=== PATIENT | male | born 1940 | race Caucasian/White ===

== ENCOUNTER → 2018-02-24 08:03 | Outpatient (CLI) | payer MEDICARE, OTHER, SELFPAY ==
--- NOTE | 2018-02-24 | DI.RAD.S_ITS ---
PROCEDURE: FL BARIUM SWALLOW W SPEECH INDICATIONS: DYSPHAGIA TECHNIQUE: Examination was conducted in conjunction with speech pathology per standard protocol. In the lateral projection, filming was performed of the patient swallowing. AP projection filming may also be performed with patient swallowing. COMPARISON: [facility], , BARIUM SWALLOW WITH SPEECH, 04/29/2009, 10:28. FINDINGS: Function: The oral preparatory phase appears normal, with proper containment. The subsequent oral propulsive phase, pharyngeal phase, and esophageal phase of swallowing also appear normal with all proffered substances. There was slight laryngotracheal penetration and a single event of slight aspiration into the anterior upper tracheal airway mild to moderate episodic pathologic vallecular pooling was observed. Morphology: No cricopharyngeal bar is identified. No cervical esophageal webs. No Zenker's diverticulum. No strictures. IMPRESSION: Several segments of mild anterior penetration during swallowing was observed with thin liquids, and a single event of scant anterior upper tracheal airway penetration was also observed. Quality of visualization is somewhat limited by patient's continued motion related to Parkinson's disease. Please review the dedicated speech therapy swallowing evaluation report which will be independently generated. Dictated by: Shlomo Nicholas M.D. on 02/24/2018 at 9:10 Approved by: Shlomo Nicholas M.D. on 02/24/2018 at 9:22
== END ==
PROVIDERS: PCP Nurse Practitioner; Visit Provider Nurse Practitioner
DX: R13.10 Dysphagia, unspecified (principal)
CPT/HCPCS: 74230; 92526; 92611

== ENCOUNTER 2018-03-18 08:46 | Emergency (ER) | payer MEDICARE, OTHER, SELFPAY ==
[2018-03-18] VITALS (9 sets, daily range): BP systolic 116–160; BP diastolic 59–99; PULSE 57–70; RESP 17–23; TEMP 36.4; O2SAT 89–98; BMI 23.8
--- NOTE | 2018-03-18 08:49 | ED.SOB ---
HPI - SOB/Dyspnea General Chief Complaint: Shortness of Breath/Dyspnea Stated Complaint: LABORED BREATHING Time Seen by Provider: 03/18/18 08:48 Source: patient Mode of arrival: wheelchair Limitations: no limitations History of Present Illness 77-year-old male with a history of Parkinson's disease here for evaluation of shortness of breath. Patient states that approximately 1 month ago he started noticing dyspnea on exertion. He has seen his food and beverage checker regarding this. He has been treated with a viral illness . He states that last night his symptoms became worse. It was associated with shortness of breath. Describes it as someone sitting on his chest. He did not come into the emergency department. He states that his breathing now is much better than what it was last evening and his chest pain is now gone. He does not know when the chest pain improved. He has been taking his medications. Has noticed that over the past month his breathing issues have become worse and worse. Related Data Home Medications Medication Instructions Recorded Confirmed ASPIRIN (Aspirin Low Dose) 81 mg PO QDAY #0 06/16/09 Carbidopa/Levodopa PO TID #0 06/16/09 (Carbidopa-Levodopa 25-100 Tab) Esomeprazole Magnesium (Nexium) 20 mg PO PM #0 06/16/09 Fluoxetine Hydrochloride (Prozac) 20 mg PO AM #0 06/16/09 HYDROCHLOROTHIAZIDE (Hydrodiuril / 12.5 mg PO QDAY #0 06/16/09 Hctz) INDOMETHACIN (Indocin) 75 mg PO PM #0 06/16/09 LEVOTHYROXINE SODIUM (Synthroid) 150 mcg PO AM #0 06/16/09 LISINOPRIL (Zestril / Prinivil) 40 mg PO AM #0 06/16/09 Loratadine (Claritin) 10 mg PO PRN #0 06/16/09 MULTIVITAMIN/MINERALS (Thera M 1 tab PO QDAY #0 06/16/09 Plus Tablet) Metoprolol Tartrate (Lopressor) 50 mg PO BID #0 06/16/09 NITROGLYCERIN (Nitrostat) 0.4 mg SUBLINGUAL PRN #0 06/16/09 Naproxen Sodium (Naprosyn) 500 mg PO BID #0 06/16/09 Simvastatin (Zocor) 10 mg PO HS #0 06/16/09 Tolterodine Tartrate (Detrol La) 4 mg PO AM #0 06/16/09 VITAMIN C - 1,000 mg PO QDAY #0 06/16/09 (VITAMIN C) [EXELON PATCH] 9.5 mg #0 06/16/09 [IRON] 1 tab PO BID #0 06/16/09 [NIASPAN ER] 500 mg PO TID #0 06/16/09 Allergies Allergy/AdvReac Type Severity Reaction Status Date / Time INGREDIENT: NKDA - NO KNOWN Allergy Unknown Uncoded 06/08/17 11:56 DRUG ALLERGIES Review of Systems Constitutional Denies chills, Denies fever(s), Reports lethargy and Reports malaise Cardiovascular Reports chest pain, Denies edema, Denies leg edema, Reports dyspnea and Reports dyspnea on exertion Respiratory Reports dyspnea, Reports dyspnea on exertion and Denies wheezing Gastrointestinal Gastrointestinal: Denies abdominal pain, Denies nausea and Denies vomiting Genitourinary Denies dysuria Musculoskeletal Denies myalgias and Denies arthralgias Integumentary/Breasts Denies rash Neurologic Comments: No change in his baseline parkinsonian tremors Hematologic/Lymphatic Comments: Not on anticoagulation Allergic/Immunologic Denies wheezing PFSH Medical History Coronary artery disease (Acute) Hyperlipidemia (Acute) Hypertension (Acute) Hypothyroid (Acute) Parkinson's disease (Acute) Surgical History No pertinent past surgical history (Acute) Stented coronary artery (Acute) Social History Smoking Status: Never smoker Exam Initial Vital Signs Initial Vital Signs: Vital Signs Temperature 97.6 F 03/18/18 08:55 Pulse Rate 69 03/18/18 08:55 Respiratory Rate 22 03/18/18 08:55 Blood Pressure 149/95 H 03/18/18 08:55 Pulse Oximetry 94 03/18/18 08:55 Const General: cooperative, comfortable, well developed, well groomed and No acute distress Orientation: alert, awake and oriented x3 HENMT Head: normal to inspection and normocephalic Resp Effort & Inspection: normal respiratory effort, no cough, not labored, no respiratory distress, no retractions and tachypneic Auscultation: clear to auscultation bilaterally and diminished lung sounds Cardio Rate: regular rate Rhythm: regular rhythm Pulses: radial pulses present GI Inspection: non-distended Palpation: soft Skin Lesions: no lesions Rashes: no rashes Neuro General: alert, awake and oriented x3 Extrem General: normal to inspection, capillary refill normal and No edema Psych Appearance: grossly normal and well kempt Course Orders Ordered: ED Orders 03/18/18 08:49 XR chest 1V Stat EKG-12 Lead Stat 03/18/18 09:10 B Type Natriuretic Peptide Stat Complete Blood Count AUTO DIFF Stat Comprehensive Metabolic Panel Stat Lipase Stat Troponin I Stat Discontinued Medications Aspirin (Aspirin Chew) 324 mg PO NOW ONE Stop: 03/18/18 09:07 Last Admin: 03/18/18 09:17 Dose: 324 mg Furosemide (Lasix) 60 mg IV NOW ONE Stop: 03/18/18 10:15 Vital Signs - 8 hr 03/18/18 08:55 03/18/18 09:34 03/18/18 10:08 Temperature 97.6 F Pulse Rate 69 66 62 Respiratory Rate 22 18 19 Blood Pressure 149/95 H Blood Pressure [Right Arm] 158/97 H 160/79 H Pulse Oximetry 94 96 89 L MDM - SOB/Dyspnea Lab Data Attestation: I reviewed the patient's lab results. Result diagrams: 03/18/18 09:10 03/18/18 09:10 Lab Results 03/18/18 03/18/18 Range/Units 09:10 09:10 WBC 9.9 (4.5-11.0) X10^3/uL RBC 4.32 L (4.5-5.9) X10^6/uL Hgb 13.2 L (13.5-17.5) g/dL Hct 39.9 L (41-53) % MCV 92.4 (80-100) fL MCH 30.5 (26-34) PG MCHC 33.0 (30-36) % RDW 15.3 H (11.6-14.8) % Plt Count 335 (150-400) X10^3/uL Neut % (Auto) 72.8 (50-75) % Lymph % (Auto) 16.7 L (25-40) % [place] % (Auto) 8.3 (3-14) % Eos % (Auto) 1.6 L (2-4) % Baso % (Auto) 0.6 (0-2) % Neut # (Auto) 7200 H (7963-2946) /uL Lymph # (Auto) 1700 (2040-4889) /uL [place] # (Auto) 800 (0-900) /uL Eos # (Auto) 200 (0-450) /uL Baso # (Auto) 100 (0-100) /uL Sodium 140 (137-145) mmol/L Potassium 4.0 (3.4-5.1) mmol/L Chloride 105 (98-107) mmol/L Carbon Dioxide 26 (22-32) mmol/L BUN 21 H (9-20) mg/dL Creatinine 0.80 (0.66-1.25) mg/dL Estimated GFR > 60.0 (>60) mL/min BUN/Creatinine Ratio 26.3 H (6-22) Glucose 122 H (80-110) mg/dL Calcium 8.9 (8.4-10.2) mg/dL Total Bilirubin 0.7 (0.2-1.3) mg/dL AST 29 (17-59) IU/L ALT 19 L (21-72) IU/L Alkaline Phosphatase 75 (38-126) U/L Troponin I 0.035 H (0.01-0.034) ng/mL B-Natriuretic Peptide 3830 H (<100) Total Protein 6.4 (6.3-8.2) g/dL Albumin 3.6 (3.5-5.0) g/dL Globulin 2.8 (1.7-4.1) g/dL Albumin/Globulin Ratio 1.3 (1.0-2.8) Lipase 71 (23-300) U/L Imaging Data Chest x-ray: Radiologist's impression: [address] [address] XRay Report Signed Patient: Mason Clay [facility]#: [id number] : 1940Acct:[id number] Age/Sex: 77 / MDate of Service: 03/18/18 Loc: ED Accession Number: [id number] Procedure: XR chest 1V Ordering Provider: Medhat Brock D.O. PROCEDURE: XR CHEST 1V INDICATIONS: SOb TECHNIQUE: One view of the chest was acquired. COMPARISON: [facility], CHEST 1 VIEW, 06/17/2009, 15:11. FINDINGS: Surgical changes and devices: None. Lungs and pleura: No pleural effusions or pneumothorax. There is mild interstitial prominence. Mediastinum: Mediastinal contours appear normal. Heart size is enlarged. Bones and chest wall: No suspicious bony lesions. Overlying soft tissues appear unremarkable. IMPRESSION: Interstitial prominence and cardiomegaly suggesting congestive failure. Dictated by: Shira Jones M.D. on 03/18/2018 at 9:08 Approved by: Shira Jones M.D. on 03/18/2018 at 9:09 ECG Data Attestation: I personally reviewed and interpreted this ECG as follows: Prior ECG tracings: not available for review Interpretation: Sinus rhythm Ventricular rate is 68 LVH Wandering baseline secondary to Parkinson's Nonspecific ST T wave changes MDM Narrative Medical decision making narrative: Patient has remained stable here in the emergency department. Has been chest pain free. Did receive an aspirin. Also received Lasix. Desats to the high 80s with any exertion but is in the 90s with just sitting in bed. Nonspecific changes on his EKG. Troponin only slightly elevated. BNP also elevated. Given his history and physical exam I do suspect that his shortness of breath over the past month secondary to heart failure. I discussed the case with Dr. Gamble at [facility] who accepts the patient in transport. Discussed the transfer with the patient and his . They expressed understanding and agreement. Patient is stable for transport. Discharge Plan Departure Patient Disposition: [facility] Clinical Impression: Congestive heart failure, ACS (acute coronary syndrome), Hypoxia Prescriptions: No Action INDOMETHACIN (Indocin) 75 mg PO PM Qty: 0 RF: 0 MULTIVITAMIN/MINERALS (Thera M Plus Tablet) 1 tab PO QDAY Qty: 0 RF: 0 Tolterodine Tartrate (Detrol La) 4 mg PO AM Qty: 0 RF: 0 VITAMIN C - (VITAMIN C) 1,000 mg PO QDAY Qty: 0 RF: 0 Carbidopa/Levodopa (Carbidopa-Levodopa 25-100 Tab) PO TID Qty: 0 RF: 0 Esomeprazole Magnesium (Nexium) 20 mg PO PM Qty: 0 RF: 0 LEVOTHYROXINE SODIUM (Synthroid) 150 mcg PO AM Qty: 0 RF: 0 [EXELON PATCH] 9.5 mg Qty: 0 RF: 0 Loratadine (Claritin) 10 mg PO PRN Qty: 0 RF: 0 Naproxen Sodium (Naprosyn) 500 mg PO BID Qty: 0 RF: 0 NITROGLYCERIN (Nitrostat) 0.4 mg Sublingual PRN Qty: 0 RF: 0 Simvastatin (Zocor) 10 mg PO HS Qty: 0 RF: 0 [NIASPAN ER] 500 mg PO TID Qty: 0 RF: 0 ASPIRIN (Aspirin Low Dose) 81 mg PO QDAY Qty: 0 RF: 0 Fluoxetine Hydrochloride (Prozac) 20 mg PO AM Qty: 0 RF: 0 HYDROCHLOROTHIAZIDE (Hydrodiuril / Hctz) 12.5 mg PO QDAY Qty: 0 RF: 0 LISINOPRIL (Zestril / Prinivil) 40 mg PO AM Qty: 0 RF: 0 Metoprolol Tartrate (Lopressor) 50 mg PO BID Qty: 0 RF: 0 [IRON] 1 tab PO BID Qty: 0 RF: 0
[2018-03-18] MEDS: ASPIRIN 81 MG TAB 324 MG PO (09:17)
[2018-03-18 09:21] LABS: Add Manual Diff / Slide Review NO; Basophils Absolute Auto 100 /uL (0-100); Basophils Percent Auto 0.6 % (0-2); Eosinophils Absolute Auto 200 /uL (0-450); Eosinophils Percent Auto 1.6 % (2-4); Hematocrit 39.9 % (41-53); Hemoglobin 13.2 g/dL (13.5-17.5); Lymphocytes Absolute Auto 1700 /uL (1100-4500); Lymphocytes Percent Auto 16.7 % (25-40); Mean Corpuscular Hemoglobin 30.5 PG (26-34); Mean Corpuscular Volume 92.4 fL (80-100); Monocytes Absolute Auto 800 /uL (0-900); Monocytes Percent Auto 8.3 % (3-14); Neutrophils Absolute Auto 7200 /uL (1500-7000); Neutrophils Percent Auto 72.8 % (50-75); Platelet Count 335 X10^3/uL (150-400); Red Blood Cell Count 4.32 X10^6/uL (4.5-5.9); Red Cell Distribution Width 15.3 % (11.6-14.8); White Blood Cell Count 9.9 X10^3/uL (4.5-11.0)
[2018-03-18 09:29] LABS: Alanine Aminotransferase 19 IU/L (21-72); Albumin 3.6 g/dL (3.5-5.0); Albumin Globulin Ratio 1.3 (1.0-2.8); Alkaline Phosphatase 75 U/L (38-126); Aspartate Aminotransferase 29 IU/L (17-59); BUN Creatinine Ratio 26.3 (6-22); Bilirubin Total 0.7 mg/dL (0.2-1.3); Blood Urea Nitrogen 21 mg/dL (9-20); Calcium 8.9 mg/dL (8.4-10.2); Carbon Dioxide 26 mmol/L (22-32); Chloride 105 mmol/L (98-107); Estimated Glomerular Filt Rate > 60.0 mL/min (>60); Globulin 2.8 g/dL (1.7-4.1); Glucose 122 mg/dL (80-110); HEMOLYSIS < 15 (0-50); Lipase 71 U/L (23-300); Sodium 140 mmol/L (137-145); Total Protein 6.4 g/dL (6.3-8.2)
[2018-03-18 09:34] LABS: B Type Natriuretic Peptide 3830 (<100)
[2018-03-18 09:41] LABS: Troponin I 0.035 ng/mL (0.01-0.034)
[2018-03-18] MEDS: FUROSEMIDE 100 MG/10 ML VIAL 60 MG IV (10:26)
[2018-03-18 11:38] LABS: Bacteria Urine Occasional (0-1); RBC Urine 0-1/HPF (0-5/HPF); WBC Urine 1-5/HPF (0-5/HPF)
[2018-03-18 11:39] LABS: Culture Indicated Urine Specimen Cultured
[2018-03-18 13:14] LABS: Troponin I 0.036 ng/mL (0.01-0.034)
== END 2018-03-18 15:40 | disposition short-term general hospital (02) ==
PROVIDERS: Emergency Provider Emergency Medicine; PCP Nurse Practitioner
DX: I50.9 Heart failure, unspecified (principal); I24.9 Acute ischemic heart disease, unspecified; R09.02 Hypoxemia
CPT/HCPCS: 36415; 36591; 71045; 80053; 81003; 81015; 83690; 83880; 84484; 85025; 87086; 93005; 96374; 99285; J1940

== ENCOUNTER → 2018-03-22 13:56 | Outpatient (CLI) | payer MEDICARE, OTHER, SELFPAY ==
--- NOTE | 2018-03-22 | DI.ECHO.S_ITS ---
[facility] +---------+ : : [address] : : : : [place], : : : : [place] [address] : : : : Phone: [phone] + [facility]-3597 Echocardiogram Report + + :Name: JULISA GOLDMAN Study Date: 03/22/2018 Height: 69 in : :[facility] Weight: 166 lb: : Gender: Male BSA: 1.9 m2 : :: 1940 Age: 77 yrs : :Reason For Study: Aortic valve stenosis : : Performed By: Dina Aparicio : + + Interpretation Summary The left ventricle is normal in size. The ejection fraction is estimated to be 30-35%. There is moderate to severe global hypokinesis of the left ventricle.Left ventricular function has significantly worsened compared to the previous exam. The right ventricle is normal in size and function. The aortic valve is moderately calcified. The aortic valve is not well visualized. The peak aortic velocity is 3.9 m/sec. The aortic valve mean gradient is 33.7 mmHg. The peak aortic velocity on the previous exam was 4.2 m/sec. The calculated aortic valve area is 0.38 cm2. There is severe aortic stenosis (low gradient due to LV dysfunction). There is mild to moderate aortic regurgitation. Compared to the prior echo study, there has been no change in the severity of aortic regurgitation. . Procedure: A two-dimensional transthoracic echocardiogram with color flow and Doppler was performed. The study quality was technically adequate. Comparison is made with the echocardiogram of 12/08/2016. The heart rate ranged between 44-73 bpm during the study. The patient was in normal sinus rhythm during the exam. Left Ventricle: The LVOT velocity is 0.45 m/s. The LVOT diameter is 2.1 cm. The left ventricle is normal in size. There is no ventricular septal defect visualized. There is no thrombus. The ejection fraction is estimated to be 30- 35%. Left ventricular function has significantly worsened compared to the previous exam. There is moderate to severe global hypokinesis of the left ventricle. MV E/A: 1.6 Med Peak E' Zaheer: 3.3 cm/sec E/E' med: 16.9. Right Ventricle: The right ventricle is normal in size and function. Atria: The left atrium is severely dilated. The left atrium has remained unchanged in size since the prior echo exam. Right atrial size is normal. There has been no significant change since the previous study. Chiari network (normal variant) is noted. There is no Doppler evidence for an interatrial shunt. Mitral Valve: The mitral valve leaflets appear mildly thickened, but open well. There is mild to moderate mitral annular calcification. The mitral valve chordae are thickened and/or calcified. No significant mitral valve stenosis. There is mild mitral regurgitation. There has been no significant change since the previous study. Aortic Valve: The aortic valve is not well visualized. The aortic valve is moderately calcified. The peak aortic velocity is 3.9 m/sec. The peak aortic velocity on the previous exam was 4.2 m/sec. The aortic valve mean gradient is 33.7 mmHg. The calculated aortic valve area is 0.38 cm2. The aortic valve area indexed to the BSA is 0.20 . There is severe aortic stenosis. There is mild to moderate aortic regurgitation. Compared to the prior echo study, there has been no change in the severity of aortic regurgitation. Tricuspid Valve: The tricuspid valve is normal in structure and function. Pulmonary artery pressures cannot be estimated because of the lack of a measurable TR jet velocity. There is mild tricuspid regurgitation. Pulmonic Valve: The pulmonic valve is best visualized from apical view. There is trace pulmonic regurgitation. Great Vessels: The aortic root is normal size. The ascending aorta is at the upper limits of normal in size. The aortic arch could not be visualized. The inferior vena cava was not visualized. Pericardium/ Pleura There is no pericardial effusion. MMode/2D Measurements & Calculations LVIDd: 5.0 cm AoV Openin.1 cm LVIDs: 3.9 cm LVOT diam: 2.1 cm IVSd: 1.0 cm Ao root diam: 3.4 cm LVPWd: 0.78 cm asc Aorta Diam: 3.4 cm LV jolly. diameter/BSA (cm/m^2): 2.6 LV sys. diameter/BSA (cm/m^2): 2.0 FS: 21.9 % EPSS: 0.89 cm LA A2 area: 30.9 cm2 RA long axis: 4.9 cm LA A4 area: 26.8 cm2 RA area: 16.7 cm2 LA length (vol): 5.8 cm RA vol: 48.1 ml LA vol: 121.8 ml RA : 25.2 ml/m2 LA vol index: 63.8 ml/m2 RVD1 (basal): 3.7 cm TAPSE: 1.9 cm Doppler Measurements & Calculations Ao V2 max: 394.6 cm/sec LVOT Max Zaheer: 44.5 cm/sec Ao V2 mean: 265.5 cm/sec LV V1 max P.79 mmHg Ao V2 VTI: 96.2 cm LV V1 VTI: 10.8 cm Ao max P.3 mmHg Ao mean P.7 mmHg BANDAR(I,D): 0.38 cm2 AI P1/2t: 533.2 msec BANDAR(V,D): 0.38 cm2 AI dec slope: 232.4 cm/sec2 BANDAR indexed to BSA (cm^2/m^2): 0.20 sev ratio: 0.11 MV E max zaheer: 55.2 cm/sec MV dec time: 0.38 sec MV A max zaheer: 33.6 cm/sec MV P1/2t: 110.7 msec MV E/A: 1.6 MVA(P1/2t): 2.0 cm2 Med Peak E' Zaheer: 3.3 cm/sec E/E' med: 16.9 Lat Peak E' Zaheer: 7.7 cm/sec E/E' lat: 7.2 E/e' average: 12.0 PA V2 max: 75.1 cm/sec SV(LVOT): 36.2 ml PA V2 mean: 48.8 cm/sec PA mean P.1 mmHg PA Accel Time: 0.07 sec Reading Physician:PM
== END ==
PROVIDERS: PCP Nurse Practitioner; Visit Provider Nurse Practitioner
DX: I08.3 Combined rheumatic disorders of mitral, aortic and tricuspid valves (principal)
CPT/HCPCS: 93306

== ENCOUNTER → 2020-06-30 10:52 | Outpatient (CLI) | payer MEDICARE, OTHER, SELFPAY ==
[2020-06-30 14:51] LABS: COVID19 -Nasal RAPID Negative (Negative)
== END ==
PROVIDERS: PCP Nurse Practitioner; Visit Provider Student in an Organized Health Care Education/Training Program
DX: Z01.812 Encounter for preprocedural laboratory examination (principal); Z20.822 Contact with and (suspected) exposure to COVID-19
CPT/HCPCS: 87635; C9803

== ENCOUNTER → 2020-07-02 10:44 | Outpatient (CLI) | payer MEDICARE, OTHER, SELFPAY ==
--- NOTE | 2020-07-02 | DI.NM.S_ITS ---
PROCEDURE: NM NURIS PERF SPECT R&S PHARM Rest and pharmacological stress myocardial perfusion SPECT with gated imaging and ejection fraction RADIOPHARMACEUTICAL: 24.4 mCi Tc-99m tetrafosmin IV at rest and 26.9 mCi Tc-99m tetrafosmin IV at peak effect of pharmacological stress. [id number] was performed. INDICATIONS: Atherosclerotic heart disease of [place] coronary TECHNIQUE: Radiopharmaceutical was injected at peak stress test, and also at rest. SPECT images were obtained. SPECT myocardial perfusion images were displayed in short axis, horizontal long axis, and vertical long axis views. Gated images were reviewed using [employer] software. COMPARISON: None. CARDIAC STRESS: A pharmacologic stress test was performed under the supervision of an attending staff, using an infusion of lexiscan 0.4mg IV X1. Hemodynamic data: There is normal blood pressure and heart rate response to pharmacologic stress. Symptoms: The patient denied anginal chest pain. Aminophylline: none EKG: Non-diagnostic ECG due to baseline ST changes; frequent PVCs present. FINDINGS: Raw data: There is good myocardial uptake of radiotracer. No significant motion artifacts. [id number] ratio is 0.31 (normal is less than 0.38 for tetrafosmin tracer). Left ventricle function: Gated images demonstrate borderline hypokinesis that is worse in the septum and the inferior wall. No transient ischemic dilation; TID is 1.11 (normal less than 1.3). Left ventricle resting end diastolic volume is 174 mL. Left ventricle stress ejection fraction is 40%; normal range is above 45%. Myocardial perfusion: There is a moderately intense defect in the inferior wall that is severe post stress suggesting prior infarct with significant leonard-infarct ischemia. There is also a moderately intense fixed apical defect suggesting prior infarct with no ischemia. No prone images as the patient unable due to parkinson's disease. IMPRESSION: Abnormal nuclear stress test. 1) There is a moderately intense defect in the inferior wall that is severe post stress suggesting prior infarct with significant leonard-infarct ischemia. There is also a moderately intense fixed apical defect suggesting prior infarct with no ischemia. 2) Enlarged left ventricle with mildly to moderately reduced systolic function (EF post stress 40%). Borderline hypokinesis that is worse in the septum and the inferior wall. 3) ECG non-diagnostic due to baseline ST changes. Frequent PVCs during the study. 4) No angina during the study. 5) Compared to the nuclear stress test 04/29/2009, the perfusion defects noted above are new on this study. Dictated by: Rosa Isela Pineda MD on 07/04/2020 at 9:34 Approved by: Rosa Isela Pineda MD on 07/04/2020 at 9:40
--- NOTE | 2020-07-02 11:47 | P.PCN_ITS ---
Cardiac Stress Test Report Referral & Results Date Patient Seen: 07/02/20 Time Patient Seen: 11:48 Requesting provider: Jen Zaldivar Indication: Atherosclerotic heart disease of [place] coronary Rest ECG: sinus rhythm with lvh with strain pattern, nonspecific ST changes, T wave inversion in II, III, aVF and V6 and bigeminy Procedure Note: After Lexiscan injection had minimal dyspnea and no chest discomfort No significant ST changes on EKG after Lexiscan injection Impression: Normal Lexiscan injection Please note: Actual ECG tracings can be found in the PACS system.
== END ==
PROVIDERS: PCP Nurse Practitioner; Referring Provider Nurse Practitioner; Visit Provider Internal Medicine Cardiovascular Disease
DX: I25.10 Atherosclerotic heart disease of native coronary artery without angina pectoris (principal); I49.3 Ventricular premature depolarization
CPT/HCPCS: 78452; 93017; A9502; J2785

== ENCOUNTER → 2020-07-03 10:25 | Outpatient (CLI) | payer MEDICARE, OTHER, SELFPAY ==
--- NOTE | 2020-07-03 | DI.ECHO.S_ITS ---
[facility]---------+ [facility] +---------+ : : [address] : : : : [id number] : : : : Phone: [phone]+ Echocardiogram Report + + :Name: JULISA GOLDMAN Study Date: 07/03/2020 Height: 69 in : :[facility] : Weight: 157 lb: : Gender: Male BSA: 1.9 m2 : :: 1940 Age: 79 yrs : :Reason For Study: AVR : :Ordering Physician: Kiana : :Nilda Munoz Performed By: Rick Dotson : :Referring: KIANA MUNOZ : + + Interpretation Summary The left ventricle is normal in size. The ejection fraction is estimated to be 25-30%. Left ventricular function has mildly worsened compared to the previous exam. There is a severe hypokinesis to akinesis of the inferior wall, inferior septum as well as posterior lateral wall. Rest of the segments appears to be mildly hypokinetic. In comparison to previous study there is a worsening wall motion abnormalities in inferior wall, inferior septum as well as posterior lateral wall from moderate to severe hypokinesis to almost akinesis. Previous LV ejection fraction was 30 to 35%. The right ventricle is normal in size and function. There is mild to moderate mitral regurgitation. Compared to the prior echo study, there has been an increase in the severity of mitral regurgitation. 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 There is probable normal prosthetic aortic valve function. No aortic regurgitation is present. The IVC is of normal diameter and collapses greater than 50% with a sniff. This suggests a low right atrial pressure of 3 mm Hg. Procedure: A two-dimensional transthoracic echocardiogram with color flow and Doppler was performed. The study quality was technically adequate. Comparison is made with the echocardiogram of 03/22/2018. Rhythm is not clear. Left Ventricle: The left ventricle is normal in size. There is mild concentric left ventricular hypertrophy. There is no thrombus. The ejection fraction is estimated to be 25-30%. Left ventricular function has mildly worsened compared to the previous exam. There is a severe hypokinesis to akinesis of the inferior wall, inferior septum as well as posterior lateral wall. Rest of the segments appears to be mildly hypokinetic. In comparison to previous study there is a worsening wall motion abnormalities in inferior wall, inferior septum as well as posterior lateral wall from moderate to severe hypokinesis to almost akinesis. Previous LV ejection fraction was 30 to 35%. MV E/A: 1.3 Med Peak E' Zaheer: 3.3 cm/sec E/E' med: 23.3. Right Ventricle: The right ventricle is normal in size and function. Atria: The left atrium is severely dilated. The left atrium has remained unchanged in size since the prior echo exam. Right atrial size is normal. There is no Doppler evidence for an interatrial shunt. Mitral Valve: There is mild to moderate mitral annular calcification. The mitral valve chordae are thickened and/or calcified. There is mild to moderate mitral regurgitation. Compared to the prior echo study, there has been an increase in the severity of mitral regurgitation. 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 There is probable normal prosthetic aortic valve function. No aortic regurgitation is present. Tricuspid Valve: Pulmonary artery pressures cannot be estimated because of the lack of a measurable TR jet velocity but the IVC suggests a CVP of around 3 mmHg. There is trace tricuspid regurgitation. Pulmonic Valve: The pulmonic valve is not well visualized. There is no pulmonic valvular regurgitation. Great Vessels: The aortic root is not well visualized. The ascending aorta could not be visualized. The IVC is of normal diameter and collapses greater than 50% with a sniff. This suggests a low right atrial pressure of 3 mm Hg. Pericardium/ Pleura There is no pericardial effusion. There is no pleural effusion. MMode/2D Measurements & Calculations LVIDd: 5.5 cm LA A2 area: 27.9 cm2 LVIDs: 5.0 cm LA A4 area: 21.4 cm2 FS: 8.9 % LA length (vol): 5.4 cm IVSd: 1.3 cm LA vol: 93.2 ml LVPWd: 1.2 cm LA vol index: 50.0 ml/m2 LV jolly. diameter/BSA (cm/m^2): 2.9 LV sys. diameter/BSA (cm/m^2): 2.7 RA area: 16.0 cm2 RVD1 (basal): 3.1 cm TAPSE: 2.3 cm Doppler Measurements & Calculations Ao V2 max: 194.0 cm/sec LVOT Max Zaheer: 76.7 cm/sec Ao V2 mean: 135.4 cm/sec LV V1 max P.4 mmHg Ao max P.1 mmHg LV V1 VTI: 18.7 cm Ao mean P.1 mmHg sev ratio: 0.43 Ao V2 VTI: 43.7 cm MV E max zaheer: 75.9 cm/sec MV A max zaheer: 56.5 cm/sec MV E/A: 1.3 Med Peak E' Zaheer: 3.3 cm/sec E/E' med: 23.3 Lat Peak E' Zaheer: 7.6 cm/sec E/E' lat: 10.0 E/e' average: 16.6 MV dec time: 0.28 sec Reading Physician:10:25 AM
== END ==
PROVIDERS: PCP Nurse Practitioner; Referring Provider Internal Medicine Cardiovascular Disease; Visit Provider Internal Medicine Cardiovascular Disease
DX: I34.0 Nonrheumatic mitral (valve) insufficiency (principal); I49.3 Ventricular premature depolarization; Z95.2 Presence of prosthetic heart valve
CPT/HCPCS: 93306

== ENCOUNTER 2020-08-06 10:03 | Emergency (ER) | payer MEDICARE, OTHER, SELFPAY ==
[2020-08-06] VITALS (16 sets, daily range): BP systolic 113–176; BP diastolic 56–93; PULSE 57–78; RESP 14–19; TEMP 36.1; O2SAT 95–100; BMI 22.8
--- NOTE | 2020-08-06 10:07 | DI.RAD.S_ITS ---
PROCEDURE: XR CHEST 1V INDICATIONS: chest pain TECHNIQUE: One view of the chest was acquired. COMPARISON: [facility], , XR CHEST 1V, 03/18/2018, 8:56. [facility], , CHEST 1 VIEW, 06/17/2009, 15:11. FINDINGS: Surgical changes and devices: None. Lungs and pleura: Lungs are clear. No pleural effusions or pneumothorax. Mediastinum: Mediastinal contours appear normal. Heart size is normal. Bones and chest wall: No suspicious bony lesions. Overlying soft tissues appear unremarkable. IMPRESSION: Normal for age, source of current chest pain symptoms is not seen. Dictated by: Shlomo Nicholas M.D. on 08/06/2020 at 10:35 Approved by: Shlomo Nicholas M.D. on 08/06/2020 at 10:35
--- NOTE | 2020-08-06 10:16 | ED.CHESTPAIN ---
HPI - Chest Pain General Chief Complaint: Chest Pain Stated Complaint: funny symptoms in chest since 2am Time Seen by Provider: 08/06/20 10:06 Source: patient and family Mode of arrival: Ambulatory Limitations: no limitations History of Present Illness HPI narrative: 79-year-old male nonsmoker with history coronary artery disease, hypothyroidism, hypertension, hyperlipidemia presents with his in the chief complaint of funny feeling in his chest since about 2:00 a.m. this morning. He states it started with a spinning or swirling sensation in his chest there was associated with nausea. He denies any obvious provocation, palliation or radiation of the symptoms. He denies associated red flag symptoms such as nausea, vomiting, unexplained diaphoresis, shortness of breath. He states he has never felt any sensation like this in the past. He states over the course of the morning the swelling sensation in his chest has resolved but now he has a residual pressure this it is in the middle of his chest. This also has no provocation, palliation or radiation. This also does not feel like anything he has had in the past. He had a heart catheterization about a week ago at [facility], no stent was placed, his primary terrazzo worker apprentice is Dr. Zaldivar Related Data Home Medications Medication Instructions Recorded Confirmed ASPIRIN (Aspirin Low Dose) 81 mg PO QDAY #0 06/16/09 08/06/20 NITROGLYCERIN (Nitrostat) 0.4 mg SUBLINGUAL PRN #0 06/16/09 08/06/20 Calcium + Vitamin D 08/06/20 acetaminophen [Tylenol Extra 500 mg PO Q6H PRN 08/06/20 08/06/20 Strength] amantadine HCl 100 mg PO 08/06/20 atorvastatin 40 mg PO DAILY 08/06/20 08/06/20 carbidopa-levodopa [Rytary] 48.75 - 195 cap PO ONCE PM 08/06/20 08/06/20 carbidopa-levodopa [Rytary] 61.25 - 245 cap PO QID 08/06/20 08/06/20 carvedilol 3.125 mg PO BID 08/06/20 08/06/20 duloxetine 30 mg PO DAILY 08/06/20 08/06/20 guaifenesin [Mucinex] 1,200 mg PO DAILY 08/06/20 08/06/20 levothyroxine [Synthroid] 125 mcg PO DAILY 08/06/20 08/06/20 lisinopril 10 mg PO DAILY 08/06/20 08/06/20 loratadine 10 mg PO DAILY 08/06/20 08/06/20 melatonin 5 mg PO BEDTIME PRN 08/06/20 08/06/20 rivastigmine 13.3 mg TRANSDERMAL DAILY 08/06/20 08/06/20 solifenacin 10 mg PO BEDTIME 08/06/20 08/06/20 tamsulosin 0.4 mg PO DAILY 08/06/20 08/06/20 trospium 20 mg PO DAILY 08/06/20 08/06/20 Previous Rx's Medication Instructions Recorded isosorbide mononitrate 60 mg PO DAILY #90 tab 08/06/20 spironolactone 12.5 mg PO DAILY #60 tab 08/06/20 Allergies Allergy/AdvReac Type Severity Reaction Status Date / Time INGREDIENT: NKDA - NO KNOWN Allergy Unknown Uncoded 06/08/17 11:56 DRUG ALLERGIES Review of Systems Constitutional Constitutional: Denies chills, Denies fatigue, Denies fever(s), Denies frequent falls, Denies lethargy and Denies weakness Eyes Eyes: Denies change in vision, Denies eye discharge, Denies irritation and Denies loss of vision ENT Ears, Nose, Mouth, and Throat: Denies change in voice, Denies dizziness, Denies neck pain, Denies sore throat and Denies throat swelling Cardiovascular Cardiovascular: Reports chest pain, Reports irregular heart rhythm, Denies lightheadedness, Denies palpitations, Denies dyspnea, Denies dyspnea on exertion and Denies orthopnea Respiratory Respiratory: Denies cough, Denies dyspnea, Denies dyspnea on exertion and Denies wheezing Gastrointestinal Gastrointestinal: Denies abdominal pain, Denies change in bowel habits, Denies diarrhea, Reports nausea and Denies vomiting Musculoskeletal Musculoskeletal: Denies neck pain and Denies numbness Integumentary/Breasts Skin/Breast: Denies pruritus, Denies erythema, Denies rash and Denies wounds Neurologic Neurologic: Denies behavioral changes, Denies confusion, Denies dizziness, Denies frequent falls, Denies loss of vision, Denies numbness and Denies weakness Psychiatric Psychiatric: Denies anxiety, Denies behavioral changes, Denies confusion, Denies depression, Denies homicidal ideation and Denies suicidal ideation Endocrine Endocrine: Denies fatigue, Denies flushing and Denies palpitations Hematologic/Lymphatic Hematologic/Lymphatic: Denies easy bruising Allergic/Immunologic Allergic/Immunologic: Denies urticaria, Denies throat swelling and Denies wheezing Patient History Medical History Coronary artery disease Hyperlipidemia Hypertension Hypothyroid Parkinson's disease Surgical History No pertinent past surgical history Stented coronary artery Social History Smoking Status: Never smoker Smoking Status: Never smoker alcohol intake frequency: 0-2 drinks per day Substance Use Type: does not use Exam Narrative Exam Narrative: GENERAL: [79] year old patient appears stated age. Well-developed patient, in mild distress. HEAD: Atraumatic. Normocephalic. EYES: Pupils equal round and reactive. Extraocular motions intact. No scleral icterus. No injection or drainage. ENT: Nose without bleeding, purulent drainage. Throat without erythema, tonsillar hypertrophy or exudate. Airway patent. NECK: Trachea midline. Non tender CARDIOVASCULAR: Regular rate and rhythm without murmurs, gallops, or rubs. RESPIRATORY: Clear to auscultation. Breath sounds equal bilaterally. No wheezes, rales, or rhonchi. GASTROINTESTINAL: Abdomen soft, non-tender, nondistended. EXTREMITIES: No edema or joint tenderness. BACK: Nontender without deformity or crepitance. No flank tenderness. NEURO: AOx3. SKIN: No rash or erythema of visible areas Initial Vital Signs Initial Vital Signs: Vital Signs Pulse Rate 63 08/06/20 10:20 Respiratory Rate 19 08/06/20 10:20 Pulse Oximetry 98 08/06/20 10:20 Course Orders Ordered: ED Orders 08/06/20 10:06 EKG-12 Lead Stat 08/06/20 10:07 XR chest 1V Stat 08/06/20 10:30 Complete Blood Count AUTO DIFF Stat Comprehensive Metabolic Panel Stat Lipase Stat NT-proBNP (BNP-Adult 18+) Stat Troponin & CK Cardiac Panel Stat 08/06/20 11:17 Partial Thromboplastin Time Stat Prothrombin Time INR Stat Troponin I Routine 08/06/20 13:15 Troponin I Stat Discontinued Medications Aspirin (Aspirin 81 Mg Chew Tab) 324 mg PO NOW ONE Stop: 08/06/20 10:08 Last Admin: 08/06/20 10:18 Dose: 324 mg Documented by: BRIGHT Aspirin (Aspirin 81 Mg Chew Tab) 324 mg PO NOW ONE Stop: 08/06/20 10:17 Last Admin: 08/06/20 10:19 Dose: Not Given Documented by: BRIGHT Sodium Chloride (Normal Saline 0.9%) 1,000 mls @ 150 mls/hr IV CONT WENDY Last Infusion: 08/06/20 15:20 Dose: 0 mls/hr Documented by: Admin: 08/06/20 10:19 Dose: 150 mls/hr Documented by: BRIGHT Nitroglycerin (Nitroglycerin 0.4 Mg Sl Tab) 0.4 mg SL [id number] PRN PRN Reason: Chest Pain Last Admin: 08/06/20 11:00 Dose: 0.4 mg Documented by: BRIGHT Reevaluation(s) Reevaluation #1: BP dropped to 150s before nitro, still having pain Pain to 0/10 after NG x1, BP down to 113 Consultations Consultation #1: discussed with composition mixer cardiology (Miriam). Recent cath shows complex CAD of RCA and ostial circ. Referred to for complex PCI. upon completion of workup, with repeat troponin negative, and pain free. Non ischemic EKGs, recommendation to DC with return precautions. Add Imdur 60, and Spironolactone 12.5 daily. Follow up with Dr. Zaldivar / Cardio as planned Vital Signs Vital signs: Vital Signs - 8 hr 08/06/20 10:20 08/06/20 10:30 08/06/20 10:45 Temperature 96.9 F L Pulse Rate 63 59 L 57 L Respiratory Rate 19 16 14 Blood Pressure 176/77 H Pulse Oximetry 98 97 95 08/06/20 10:59 08/06/20 11:00 08/06/20 11:01 Temperature Pulse Rate 58 L 57 L 58 L Respiratory Rate 17 17 18 Blood Pressure 152/71 H 152/71 H 151/67 H Pulse Oximetry 96 96 96 08/06/20 11:26 08/06/20 11:30 08/06/20 12:00 Temperature Pulse Rate 68 60 68 Respiratory Rate 18 17 15 Blood Pressure 113/56 L 113/59 L Pulse Oximetry 97 97 95 08/06/20 12:12 08/06/20 12:30 08/06/20 12:31 Temperature Pulse Rate 59 L 57 L 58 L Respiratory Rate 15 15 14 Blood Pressure 122/62 130/58 L Pulse Oximetry 100 99 100 08/06/20 13:00 08/06/20 13:30 08/06/20 13:34 Temperature Pulse Rate 57 L 66 75 Respiratory Rate 14 15 17 Blood Pressure 172/73 H Pulse Oximetry 98 99 98 08/06/20 14:00 Temperature Pulse Rate 78 Respiratory Rate 15 Blood Pressure 150/93 H Pulse Oximetry 97 MDM - Chest Pain Lab Data Result diagrams: 08/06/20 10:30 08/06/20 10:30 Labs: Lab Results 08/06/20 08/06/20 08/06/20 Range/Units 10:30 10:30 11:17 WBC 11.1 H (4.5-11.0) X10^3/uL RBC 4.47 L (4.5-5.9) X10^6/uL Hgb 14.5 (13.5-17.5) g/dL Hct 43.5 (41-53) % MCV 97.2 (80-100) fL MCH 32.5 (26-34) PG MCHC 33.4 (30-36) % RDW 14.1 (11.6-14.8) % Plt Count 163 (150-400) X10^3/uL Neut % (Auto) 78.6 H (50-75) % Lymph % (Auto) 13.4 L (25-40) % [place] % (Auto) 6.3 (3-14) % Eos % (Auto) 1.4 L (2-4) % Baso % (Auto) 0.3 (0-2) % Neut # (Auto) 8700 H (2047-9780) /uL Lymph # (Auto) 1500 (1211-4372) /uL [place] # (Auto) 700 (0-900) /uL Eos # (Auto) 200 (0-450) /uL Baso # (Auto) 0 (0-100) /uL PT 13.4 H (10.1-12.7) SECONDS INR 1.2 (0.9-1.3) APTT 32 (26.4-36.2) SECONDS Sodium 137 (137-145) mmol/L Potassium 4.5 (3.4-5.1) mmol/L Chloride 107 (98-107) mmol/L Carbon Dioxide 23 (22-32) mmol/L BUN 22 H (9-20) mg/dL Creatinine 0.66 (0.66-1.25) mg/dL Estimated GFR > 60.0 (>60) mL/min BUN/Creatinine Ratio 33.3 H (6-22) Glucose 122 H (80-110) mg/dL Calcium 9.7 (8.4-10.2) mg/dL Total Bilirubin 1.1 (0.2-1.3) mg/dL AST 25 (17-59) IU/L ALT 6 (<50) IU/L Alkaline Phosphatase 70 (38-126) U/L Total Creatine Kinase 46 L (55-170) U/L CK-MB (CK-2) TNP CK-MB (CK-2) Rel Index TNP Troponin I QNS NT-Pro-B Natriuret Pep 2950 H (<450) pg/mL Total Protein 7.0 (6.3-8.2) g/dL Albumin 4.0 (3.5-5.0) g/dL Globulin 3.0 (1.7-4.1) g/dL Albumin/Globulin Ratio 1.3 (1.0-2.8) Lipase 13 L (23-300) U/L 08/06/20 08/06/20 Range/Units 11:17 13:15 WBC (4.5-11.0) X10^3/uL RBC (4.5-5.9) X10^6/uL Hgb (13.5-17.5) g/dL Hct (41-53) % MCV (80-100) fL MCH (26-34) PG MCHC (30-36) % RDW (11.6-14.8) % Plt Count (150-400) X10^3/uL Neut % (Auto) (50-75) % Lymph % (Auto) (25-40) % [place] % (Auto) (3-14) % Eos % (Auto) (2-4) % Baso % (Auto) (0-2) % Neut # (Auto) (6571-2769) /uL Lymph # (Auto) (6176-1832) /uL [place] # (Auto) (0-900) /uL Eos # (Auto) (0-450) /uL Baso # (Auto) (0-100) /uL PT (10.1-12.7) SECONDS INR (0.9-1.3) APTT (26.4-36.2) SECONDS Sodium (137-145) mmol/L Potassium (3.4-5.1) mmol/L Chloride (98-107) mmol/L Carbon Dioxide (22-32) mmol/L BUN (9-20) mg/dL Creatinine (0.66-1.25) mg/dL Estimated GFR (>60) mL/min BUN/Creatinine Ratio (6-22) Glucose (80-110) mg/dL Calcium (8.4-10.2) mg/dL Total Bilirubin (0.2-1.3) mg/dL AST (17-59) IU/L ALT (<50) IU/L Alkaline Phosphatase (38-126) U/L Total Creatine Kinase (55-170) U/L CK-MB (CK-2) CK-MB (CK-2) Rel Index Troponin I < 0.012 0.012 NT-Pro-B Natriuret Pep (<450) pg/mL Total Protein (6.3-8.2) g/dL Albumin (3.5-5.0) g/dL Globulin (1.7-4.1) g/dL Albumin/Globulin Ratio (1.0-2.8) Lipase (23-300) U/L ECG Data Interpretation: Sinus rhythm with rate 69, frequent PVCs. No obvious ST segmental elevation. QRS 86, ID 156, QTC 404 Discharge Plan Departure Patient Disposition: Home Clinical Impression: Chest pain Qualifiers: Chest pain type: unspecified Qualified Code(s): R07.9 - Chest pain, unspecified Instructions: DI for Chest Pain Activity Restrictions/Additional Instructions: *You have been diagnosed with [chest pain, possibly from the narrowing of your coronary arteries, but no indication of heart attack] *What to do: *Please continue to take your regular medications as directed. [x ] New medication prescriptions sent to your pharmacy: [[facility] ] [ ] New medication written as a paper prescription [ ] No new medications given *Please follow up with your primary care provider in 2-3 days, call for an appointment. Let them know you were seen in the Emergency Department and that we ask that you be seen in follow up. We will electronically transmit a record of today's note if your PCP is in our system *If you do not have a primary care provider please contact [facility] Resource line at [phone]. They will ask some questions about your medical history and help get you set up with a doctor in the community. *Return to Emergency Department if you should have any new, worsening or concerning symptoms, such as [fever greater than 101 F, shaking chills, worsening pain, persistent vomiting or other bothersome symptoms] Prescriptions: New isosorbide mononitrate 60 mg tablet extended release 24 hr 60 mg PO DAILY Qty: 90 RF: 0 spironolactone 25 mg tablet 12.5 mg PO DAILY Qty: 60 RF: 0 No Action NITROGLYCERIN (Nitrostat) 0.4 mg Sublingual PRN Qty: 0 RF: 0 ASPIRIN (Aspirin Low Dose) 81 mg PO QDAY Qty: 0 RF: 0 Rytary 48.75-195 mg capsule, extended release 48.75 - 195 cap PO ONCE PM RF: 0 Rytary 61.25-245 mg capsule, extended release 61.25 - 245 cap PO QID RF: 0 rivastigmine 13.3 mg/24 hour patch 24 hour 13.3 mg transdermal DAILY RF: 0 amantadine HCl 100 mg tablet 100 mg PO RF: 0 atorvastatin 40 mg tablet 40 mg PO DAILY RF: 0 duloxetine 30 mg capsule,delayed release(DR/EC) 30 mg PO DAILY RF: 0 lisinopril 5 mg tablet 10 mg PO DAILY RF: 0 loratadine 10 mg tablet 10 mg PO DAILY RF: 0 melatonin 5 mg Tablet 5 mg PO BEDTIME PRN (Reason: Sleep) RF: 0 carvedilol 3.125 mg tablet 3.125 mg PO BID RF: 0 Mucinex 1,200 mg Tablet Extended Release 12hr 1,200 mg PO DAILY RF: 0 levothyroxine [Synthroid] 125 mcg tablet 125 mcg PO DAILY RF: 0 Calcium + Vitamin D RF: 0 solifenacin 10 mg tablet 10 mg PO BEDTIME RF: 0 tamsulosin 0.4 mg capsule 0.4 mg PO DAILY RF: 0 acetaminophen [Tylenol Extra Strength] 500 mg Capsule 500 mg PO Q6H PRN (Reason: Headache) RF: 0 trospium 20 mg tablet 20 mg PO DAILY RF: 0 Referrals: Christie Arana ARNP [Primary Care Provider] -
[2020-08-06] MEDS: ASPIRIN 81 MG CHEW TAB 324 MG PO (10:18)
[2020-08-06] MEDS: SODIUM CHLORIDE 0.9% 1,000 ML 150 ML IV (10:19)
[2020-08-06 10:40] LABS: Add Manual Diff / Slide Review NO; Basophils Absolute Auto 0 /uL (0-100); Basophils Percent Auto 0.3 % (0-2); Eosinophils Absolute Auto 200 /uL (0-450); Eosinophils Percent Auto 1.4 % (2-4); Hematocrit 43.5 % (41-53); Hemoglobin 14.5 g/dL (13.5-17.5); Lymphocytes Absolute Auto 1500 /uL (1100-4500); Lymphocytes Percent Auto 13.4 % (25-40); Mean Corpuscular HGB Conc 33.4 % (30-36); Mean Corpuscular Hemoglobin 32.5 PG (26-34); Mean Corpuscular Volume 97.2 fL (80-100); Monocytes Absolute Auto 700 /uL (0-900); Monocytes Percent Auto 6.3 % (3-14); Neutrophils Absolute Auto 8700 /uL (1500-7000); Neutrophils Percent Auto 78.6 % (50-75); Platelet Count 163 X10^3/uL (150-400); Red Blood Cell Count 4.47 X10^6/uL (4.5-5.9); Red Cell Distribution Width 14.1 % (11.6-14.8); White Blood Cell Count 11.1 X10^3/uL (4.5-11.0)
[2020-08-06 10:54] LABS: Alanine Aminotransferase 6 IU/L (<50); Albumin Globulin Ratio 1.3 (1.0-2.8); Alkaline Phosphatase 70 U/L (38-126); Aspartate Aminotransferase 25 IU/L (17-59); BUN Creatinine Ratio 33.3 (6-22); Bilirubin Total 1.1 mg/dL (0.2-1.3); Blood Urea Nitrogen 22 mg/dL (9-20); Calcium 9.7 mg/dL (8.4-10.2); Carbon Dioxide 23 mmol/L (22-32); Chloride 107 mmol/L (98-107); Creatine Kinase 46 U/L (55-170); Estimated Glomerular Filt Rate > 60.0 mL/min (>60); Glucose 122 mg/dL (80-110); Lipase 13 U/L (23-300); Potassium 4.5 mmol/L (3.4-5.1); Sodium 137 mmol/L (137-145)
[2020-08-06 10:55] LABS: HEMOLYSIS 107 (0-50)
[2020-08-06 11:00] LABS: Troponin I QNS ng/mL (0.01-0.034)
[2020-08-06] MEDS: NITROGLYCERIN 0.4 MG SL TAB SL (11:00)
[2020-08-06 11:03] LABS: NT-proBNP (BNP-Adult 18+) 2950 pg/mL (<450)
[2020-08-06 11:29] LABS: INR 1.2 (0.9-1.3); Prothrombin Time 13.4 SECONDS (10.1-12.7)
[2020-08-06 11:32] LABS: PTT Partial Thromboplastin Tim 32 SECONDS (26.4-36.2)
[2020-08-06 11:46] LABS: Troponin I < 0.012 ng/mL (0.01-0.034)
[2020-08-06 13:44] LABS: Troponin I 0.012 ng/mL (0.01-0.034)
== END 2020-08-06 15:22 | disposition home or self-care (01) ==
PROVIDERS: Emergency Provider Emergency Medicine; PCP Nurse Practitioner
DX: R07.9 Chest pain, unspecified (principal); R11.0 Nausea
CPT/HCPCS: 36415; 71045; 80053; 82550; 83690; 83880; 84484; 85025; 85610; 85730; 93005; 96360; 96361; 99284

== ENCOUNTER 2020-10-16 13:56 | Emergency (ER) | payer MEDICARE, OTHER, SELFPAY ==
[2020-10-16 14:09] VITALS: BP 99/54; PULSE 64; RESP 16; O2SAT 96
--- NOTE | 2020-10-16 14:33 | ED.FALL ---
HPI - Fall General Chief Complaint: Fall Stated Complaint: fainting spell this morning,not with it Time Seen by Provider: 10/16/20 14:10 Source: patient and family Mode of arrival: Wheelchair History of Present Illness HPI Narrative: Patient is an 80-year-old male. Has a history of Parkinson's disease. Arrived with family after having an episode this morning where is reported that he passed out. He stated that he was at his normal state health. He got out of his car. He uses his walker at baseline. He had taken a couple steps into the garage when family reports that he seemed to not be able to walk far in became somewhat out of it. They did help him to the ground. He did not fall. Did not hit his head. There was no shaking activity consistent with seizures. Patient does not seem to remember the event all that well. There was no loss of bowel or bladder. They tried to get the patient up afterwards. He reported that both of his legs were very weak. He denied any chest pain. No shortness of breath. No lightheadedness. No sinus congestion. No ringing in his ears. No numbness or tingling in arms and his legs. He has been taking all of his medications as directed. Related Data Home Medications Medication Instructions Recorded Confirmed ASPIRIN (Aspirin Low Dose) 81 mg PO QDAY #0 06/16/09 08/06/20 NITROGLYCERIN (Nitrostat) 0.4 mg SUBLINGUAL PRN #0 06/16/09 08/06/20 Calcium + Vitamin D 08/06/20 acetaminophen 500 mg capsule 500 mg PO Q6H PRN 08/06/20 08/06/20 amantadine HCl 100 mg tablet 100 mg PO 08/06/20 atorvastatin 40 mg tablet 40 mg PO DAILY 08/06/20 08/06/20 carbidopa ER 48.75 mg-levodopa 195 48.75 - 195 cap PO ONCE PM 08/06/20 08/06/20 mg capsule,extended release (Rytary) carbidopa ER 61.25 mg-levodopa 245 61.25 - 245 cap PO QID 08/06/20 08/06/20 mg capsule,extended release (Rytary) carvedilol 3.125 mg tablet 3.125 mg PO BID 08/06/20 08/06/20 duloxetine 30 mg capsule,delayed 30 mg PO DAILY 08/06/20 08/06/20 release guaifenesin 1,200 mg tablet, 1,200 mg PO DAILY 08/06/20 08/06/20 extended release 12 hr (Mucinex) levothyroxine 125 mcg tablet 125 mcg PO DAILY 08/06/20 08/06/20 (Synthroid) lisinopril 5 mg tablet 10 mg PO DAILY 08/06/20 08/06/20 loratadine 10 mg tablet 10 mg PO DAILY 08/06/20 08/06/20 melatonin 5 mg tablet 5 mg PO BEDTIME PRN 08/06/20 08/06/20 rivastigmine 13.3 mg/24 hour 13.3 mg TRANSDERMAL DAILY 08/06/20 08/06/20 transdermal patch solifenacin 10 mg tablet 10 mg PO BEDTIME 08/06/20 08/06/20 tamsulosin 0.4 mg capsule 0.4 mg PO DAILY 08/06/20 08/06/20 trospium 20 mg tablet 20 mg PO DAILY 08/06/20 08/06/20 Previous Rx's Medication Instructions Recorded isosorbide mononitrate 60 mg 60 mg PO DAILY #90 tab 08/06/20 tablet,extended release 24 hr spironolactone 25 mg tablet 12.5 mg PO DAILY #60 tab 08/06/20 Allergies Allergy/AdvReac Type Severity Reaction Status Date / Time INGREDIENT: NKDA - NO KNOWN Allergy Unknown Uncoded 06/08/17 11:56 DRUG ALLERGIES Review of Systems Constitutional Constitutional: Reports system reviewed and no additional complaints, except as documented Cardiovascular Cardiovascular: Reports system reviewed and no additional complaints, except as documented Respiratory Respiratory: Reports system reviewed and no additional complaints, except as documented Gastrointestinal Gastrointestinal: Reports system reviewed and no additional complaints, except as documented Musculoskeletal Musculoskeletal: Reports as per HPI Integumentary/Breasts Skin/Breast: Reports system reviewed and no additional complaints, except as documented Neurologic Neurologic: Reports as per HPI Psychiatric Psychiatric: Reports system reviewed and no additional complaints, except as documented Hematologic/Lymphatic On Anticoagulants: No Patient History Medical History Coronary artery disease Hyperlipidemia Hypertension Hypothyroid Parkinson's disease Surgical History No pertinent past surgical history Stented coronary artery Social History Smoking Status: Never smoker Smoking Status: Never smoker alcohol intake frequency: 0-2 drinks per day Substance Use Type: does not use Exam Initial Vital Signs Initial Vital Signs: Vital Signs Pulse Rate 64 10/16/20 14:09 Respiratory Rate 16 10/16/20 14:09 Blood Pressure 99/54 L 10/16/20 14:09 Pulse Oximetry 96 10/16/20 14:09 Const General: cooperative and comfortable HENMT Head: normal to inspection and normocephalic Resp Effort & Inspection: normal respiratory effort Auscultation: clear to auscultation bilaterally Cardio Rate: regular rate Rhythm: regular rhythm GI Inspection: normal to inspection Skin General: no rashes or lesions noted Neuro General: patient alert, patient awake, patient oriented x3 and moves all extremities Cognition: normal cognition Speech: speech normal Gait: other (With walker) Extrem General: normal to inspection and capillary refill normal Psych Appearance: grossly normal and well kempt Scores GCS [place] coma scale eye opening: Spontaneous [place] coma scale verbal response: Orientated [place] coma scale motor response: Obey commands [place] coma scale total score: 15 Course Orders Ordered: ED Orders 10/16/20 14:34 Consult to [facility] - Trading Manager Stat 10/16/20 14:50 Basic Metabolic Panel Stat Complete Blood Count AUTO DIFF Stat Vital Signs Vital signs: Vital Signs - 8 hr 10/16/20 14:09 Pulse Rate 64 Respiratory Rate 16 Blood Pressure 99/54 L Pulse Oximetry 96 MDM - Fall Lab Data Attestation: I reviewed the patient's lab results. Result diagrams: 10/16/20 14:50 10/16/20 14:50 Labs: Lab Results 10/16/20 10/16/20 Range/Units 14:50 14:50 WBC 6.7 (4.5-11.0) X10^3/uL RBC 3.88 L (4.5-5.9) X10^6/uL Hgb 12.5 L (13.5-17.5) g/dL Hct 36.8 L (41-53) % MCV 94.8 (80-100) fL MCH 32.2 (26-34) PG MCHC 33.9 (30-36) % RDW 13.9 (11.6-14.8) % Plt Count 174 (150-400) X10^3/uL Neut % (Auto) 70.7 (50-75) % Lymph % (Auto) 20.3 L (25-40) % [place] % (Auto) 6.2 (3-14) % Eos % (Auto) 2.3 (2-4) % Baso % (Auto) 0.5 (0-2) % Neut # (Auto) 4800 (2214-0203) /uL Lymph # (Auto) 1400 (3080-1586) /uL [place] # (Auto) 400 (0-900) /uL Eos # (Auto) 200 (0-450) /uL Baso # (Auto) 0 (0-100) /uL Sodium 136 L (137-145) mmol/L Potassium 4.2 (3.4-5.1) mmol/L Chloride 107 (98-107) mmol/L Carbon Dioxide 24 (22-32) mmol/L BUN 22 H (9-20) mg/dL Creatinine 0.72 (0.66-1.25) mg/dL Estimated GFR > 60.0 (>60) mL/min BUN/Creatinine Ratio 30.6 H (6-22) Glucose 154 H (80-110) mg/dL Calcium 9.2 (8.4-10.2) mg/dL ECG Data Attestation: I personally reviewed and interpreted this ECG as follows: Interpretation: Sinus rhythm Ventricular rate is 62 Normal axis Normal QRS Normal QTC No ST T wave changes MDM Narrative Medical decision making narrative: Presentation today does seem somewhat consistent as a syncope/presyncope. Low suspicion for seizure. Low suspicion for TIA. Low suspicion for CVA. His electrolytes are unremarkable. Vital signs unremarkable. No indication of dehydration. This also very well could be an issue with his Parkinson's disease and sequela because of this. Had a discussion with the patient and . We will hold on further workup. He was able to ambulate with a walker and states he feels at baseline. He was given strict return precautions and follow-up instructions. He expressed understanding and agreement. Discharge Plan Departure Patient Disposition: Home Clinical Impression: Parkinson's disease Instructions: How to Prevent Falls Activity Restrictions/Additional Instructions: Recommend that you continue to take all of your medications as directed. Also recommend that you look through the resource guide that was given to you by social Work. Contact your primary doctor for a follow-up. Return to the emergency department for any new or worsening symptoms Prescriptions: No Action NITROGLYCERIN (Nitrostat) 0.4 mg Sublingual PRN Qty: 0 RF: 0 ASPIRIN (Aspirin Low Dose) 81 mg PO QDAY Qty: 0 RF: 0 Rytary 48.75-195 mg capsule, extended release 48.75 - 195 cap PO ONCE PM RF: 0 Rytary 61.25-245 mg capsule, extended release 61.25 - 245 cap PO QID RF: 0 rivastigmine 13.3 mg/24 hour patch 24 hour 13.3 mg transdermal DAILY RF: 0 amantadine HCl 100 mg tablet 100 mg PO RF: 0 atorvastatin 40 mg tablet 40 mg PO DAILY RF: 0 duloxetine 30 mg capsule,delayed release(DR/EC) 30 mg PO DAILY RF: 0 lisinopril 5 mg tablet 10 mg PO DAILY RF: 0 loratadine 10 mg tablet 10 mg PO DAILY RF: 0 melatonin 5 mg Tablet 5 mg PO BEDTIME PRN (Reason: Sleep) RF: 0 carvedilol 3.125 mg tablet 3.125 mg PO BID RF: 0 Mucinex 1,200 mg Tablet Extended Release 12hr 1,200 mg PO DAILY RF: 0 levothyroxine [Synthroid] 125 mcg tablet 125 mcg PO DAILY RF: 0 Calcium + Vitamin D RF: 0 solifenacin 10 mg tablet 10 mg PO BEDTIME RF: 0 tamsulosin 0.4 mg capsule 0.4 mg PO DAILY RF: 0 acetaminophen [Tylenol Extra Strength] 500 mg Capsule 500 mg PO Q6H PRN (Reason: Headache) RF: 0 trospium 20 mg tablet 20 mg PO DAILY RF: 0 isosorbide mononitrate 60 mg tablet extended release 24 hr 60 mg PO DAILY Qty: 90 RF: 0 spironolactone 25 mg tablet 12.5 mg PO DAILY Qty: 60 RF: 0 Referrals: Christie Arana ARNP [Primary Care Provider] -
--- NOTE | 2020-10-16 14:52 | CM.SWNOTE ---
SOLUTION MAKE UP OPERATOR Note SOLUTION MAKE UP OPERATOR receives consult and enters room to meet with patient, present is patient's Toni. Patient is 80 y/o male who presents to ED with concern of fainting this morning and fatigue. Patient's endorses that patient typically has more energy and he is not acting like himself. Patient has hx of Parkinson's disease. It is reported that patient and live together in a one story home and patient has generally good mobility at home. Patient and endorse that patient has not fallen or fainted before. It is reported that patient uses a walker at home and a caregiver comes once a week for bath aide assistance. Patient's endorses that she assists patient with getting dressed and undressing each day, and patient is typically independent with walker. SOLUTION MAKE UP OPERATOR discusses HH services and caregivers. It is reported that patient goes to outpatient PT once a week in [place]. It is reported that patient has PCP appt in October or November with ANTONIO Crystal. It is is reported that patient and have a daughter that lives in town that is a good support. Patient and declined HH referral at this time due to current outpatient PT service, SOLUTION MAKE UP OPERATOR discusses that patient's PCP can also submit a HH referral at any time. SOLUTION MAKE UP OPERATOR provides patient and with a senior resource guide and identifies the caregivers in home section. Plan: ED provider to medically assess patient, patient to d/c to home when medically clear. Patient and to look into HH and caregivers in near future. EZIO Matias
[2020-10-16 15:05] LABS: Add Manual Diff / Slide Review NO; Basophils Absolute Auto 0 /uL (0-100); Basophils Percent Auto 0.5 % (0-2); Eosinophils Absolute Auto 200 /uL (0-450); Eosinophils Percent Auto 2.3 % (2-4); Hematocrit 36.8 % (41-53); Hemoglobin 12.5 g/dL (13.5-17.5); Lymphocytes Absolute Auto 1400 /uL (1100-4500); Lymphocytes Percent Auto 20.3 % (25-40); Mean Corpuscular HGB Conc 33.9 % (30-36); Mean Corpuscular Hemoglobin 32.2 PG (26-34); Mean Corpuscular Volume 94.8 fL (80-100); Monocytes Absolute Auto 400 /uL (0-900); Monocytes Percent Auto 6.2 % (3-14); Neutrophils Absolute Auto 4800 /uL (1500-7000); Neutrophils Percent Auto 70.7 % (50-75); Platelet Count 174 X10^3/uL (150-400); Red Blood Cell Count 3.88 X10^6/uL (4.5-5.9); Red Cell Distribution Width 13.9 % (11.6-14.8); White Blood Cell Count 6.7 X10^3/uL (4.5-11.0)
[2020-10-16 15:09] VITALS: PULSE 58; O2SAT 94
[2020-10-16 15:12] LABS: BUN Creatinine Ratio 30.6 (6-22); Blood Urea Nitrogen 22 mg/dL (9-20); Calcium 9.2 mg/dL (8.4-10.2); Carbon Dioxide 24 mmol/L (22-32); Chloride 107 mmol/L (98-107); Estimated Glomerular Filt Rate > 60.0 mL/min (>60); Glucose 154 mg/dL (80-110); HEMOLYSIS 16 (0-50); Potassium 4.2 mmol/L (3.4-5.1); Sodium 136 mmol/L (137-145)
[2020-10-16 15:30] VITALS: BP 110/55; PULSE 57; O2SAT 95
== END 2020-10-16 15:52 | disposition home or self-care (01) ==
PROVIDERS: Emergency Provider Emergency Medicine; PCP Nurse Practitioner
DX: G20 Parkinson's disease (principal); R55 Syncope and collapse
CPT/HCPCS: 36415; 80048; 85025; 93005; 93010; 99283; 99284

== ENCOUNTER 2021-04-26 15:46 | Emergency (ER) | payer MEDICARE, OTHER, SELFPAY ==
[2021-04-26] VITALS (13 sets, daily range): BP systolic 141–220; BP diastolic 65–98; PULSE 48–67; RESP 15–22; TEMP 36.1; O2SAT 96–97; BMI 21.5
--- NOTE | 2021-04-26 15:51 | DI.RAD.S_ITS ---
PROCEDURE: XR CHEST 1V INDICATIONS: chest pain TECHNIQUE: One view of the chest was acquired. COMPARISON: [facility], CR, XR CHEST 1V, 08/06/2020, 10:11. FINDINGS: Surgical changes and devices: Stable appearance of cardiac valvular prosthesis. Lungs and pleura: Lungs are clear. No pleural effusions or pneumothorax. Mediastinum: Mediastinal contours appear normal. Heart size is normal. Bones and chest wall: No suspicious bony lesions. Overlying soft tissues appear unremarkable. IMPRESSION: Stable examination of the chest without acute cardiopulmonary abnormalities. No focal airspace disease. Dictated by: Michele Hemphill M.D. on 04/26/2021 at 15:38 Approved by: Michele Hemphill M.D. on 04/26/2021 at 15:39
--- NOTE | 2021-04-26 15:57 | ED.AMS ---
HPI - Altered Mental Status General Chief Complaint: Syncope Stated Complaint: altered mental status Time Seen by Provider: 04/26/21 15:56 Source: patient and EMS Mode of arrival: EMS Limitations: no limitations History of Present Illness HPI narrative: This is an 80-year-old male brought in for possible altered mental status. He was in the car with his who was driving. She EMS states that is normal for patient to fall asleep in the car but she was talking to him touching him having difficulty waking him and stop the car. To about 5 minutes before he could be awakened. Per report patient then normalized to his normal mental status. He himself has no complaints. He denies headache, chest pain or shortness of breath, no nausea vomiting, no diarrhea constipation. No urinary symptoms. He has Parkinson's and recently had increase in his medication dosage. He has been afebrile with no infectious type symptoms. 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 No known drug allergies. Related Data Home Medications Medication Instructions Recorded Confirmed ASPIRIN (Aspirin Low Dose) 81 mg PO QDAY #0 06/16/09 08/06/20 NITROGLYCERIN (Nitrostat) 0.4 mg SUBLINGUAL PRN #0 06/16/09 08/06/20 Calcium + Vitamin D 08/06/20 acetaminophen 500 mg capsule 500 mg PO Q6H PRN 08/06/20 08/06/20 amantadine HCl 100 mg tablet 100 mg PO 08/06/20 atorvastatin 40 mg tablet 40 mg PO DAILY 08/06/20 08/06/20 carbidopa ER 48.75 mg-levodopa 195 48.75 - 195 cap PO ONCE PM 08/06/20 08/06/20 mg capsule,extended release (Rytary) carbidopa ER 61.25 mg-levodopa 245 61.25 - 245 cap PO QID 08/06/20 08/06/20 mg capsule,extended release (Rytary) carvedilol 3.125 mg tablet 3.125 mg PO BID 08/06/20 08/06/20 duloxetine 30 mg capsule,delayed 30 mg PO DAILY 08/06/20 08/06/20 release guaifenesin 1,200 mg tablet, 1,200 mg PO DAILY 08/06/20 08/06/20 extended release 12 hr (Mucinex) levothyroxine 125 mcg tablet 125 mcg PO DAILY 08/06/20 08/06/20 (Synthroid) lisinopril 5 mg tablet 10 mg PO DAILY 08/06/20 08/06/20 loratadine 10 mg tablet 10 mg PO DAILY 08/06/20 08/06/20 melatonin 5 mg tablet 5 mg PO BEDTIME PRN 08/06/20 08/06/20 rivastigmine 13.3 mg/24 hour 13.3 mg TRANSDERMAL DAILY 08/06/20 08/06/20 transdermal patch solifenacin 10 mg tablet 10 mg PO BEDTIME 08/06/20 08/06/20 tamsulosin 0.4 mg capsule 0.4 mg PO DAILY 08/06/20 08/06/20 trospium 20 mg tablet 20 mg PO DAILY 08/06/20 08/06/20 Previous Rx's Medication Instructions Recorded isosorbide mononitrate 60 mg 60 mg PO DAILY #90 tab 08/06/20 tablet,extended release 24 hr spironolactone 25 mg tablet 12.5 mg PO DAILY #60 tab 08/06/20 Allergies Allergy/AdvReac Type Severity Reaction Status Date / Time INGREDIENT: NKDA - NO KNOWN Allergy Unknown Uncoded 06/08/17 11:56 DRUG ALLERGIES Review of Systems Review of Systems ROS Unobtainable: All systems reviewed & are unremarkable except as noted in HPI and below Patient History Medical History Coronary artery disease Hyperlipidemia Hypertension Hypothyroid Parkinson's disease Surgical History No pertinent past surgical history Stented coronary artery Social History Smoking Status: Never smoker Smoking Status: Never smoker alcohol intake frequency: 0-2 drinks per day Substance Use Type: does not use Exam Narrative Exam Narrative: GENERAL: Alert and oriented x three, elderly male in no acute distress. HEENT: Head normocephalic, atraumatic, EOMI, pupils reactive, face symmetric, moist mucous membranes NECK: Supple, full range of motion CARDIOVASCULAR: Regular rate and rhythm without murmurs, rubs or gallops. RESPIRATORY: Breath sounds equal bilaterally, no wheezes rales or rhonchi. ABDOMEN: Soft, nontender. Normoactive bowel sounds all 4 quadrants. No guarding or rebound, rigidity, no mass : No CVA tenderness EXTREMITIES: Normal range of motion, no clubbing or edema. Neurovascularly intact NEUROLOGICAL: Cranial nerves II through XII grossly intact. Moving all extremities. Patient has persistent tremor which is generalized and rolling movement particularly in his left upper extremity. Patient does have normal movement otherwise in his extremities. 2+ radial pulses. SKIN: Warm, dry, no petechiae, no rashes or lesions. Initial Vital Signs Initial Vital Signs: Vital Signs Temperature 97 F L 04/26/21 15:52 Pulse Rate 52 L 04/26/21 15:52 Respiratory Rate 22 04/26/21 15:52 Blood Pressure 141/65 H 04/26/21 15:52 Pulse Oximetry 96 04/26/21 15:52 Scores GCS [place] coma scale eye opening: Spontaneous [place] coma scale verbal response: Orientated [place] coma scale motor response: Obey commands [place] coma scale total score: 15 Course Orders Ordered: ED Orders 04/26/21 15:30 Complete Blood Count AUTO DIFF Stat Comprehensive Metabolic Panel Stat Lipase Stat Magnesium Stat Troponin & CK Cardiac Panel Stat 04/26/21 15:51 XR chest 1V Stat EKG-12 Lead Stat 04/26/21 17:37 Troponin I Stat Discontinued Medications Carvedilol (Carvedilol 3.125 Mg Tablet) 3.125 mg PO NOW ONE Stop: 04/26/21 17:43 Last Admin: 04/26/21 17:59 Dose: 3.125 mg Documented by: TIERNEY Vital Signs Vital signs: Vital Signs - 8 hr 04/26/21 15:52 04/26/21 16:23 04/26/21 16:30 Temperature 97 F L Pulse Rate 52 L 49 L 48 L Respiratory Rate 22 17 18 Blood Pressure 141/65 H Pulse Oximetry 96 04/26/21 16:31 04/26/21 17:00 04/26/21 17:01 Temperature Pulse Rate 49 L 62 65 Respiratory Rate 15 22 19 Blood Pressure 158/70 H 161/74 H Pulse Oximetry 04/26/21 17:30 04/26/21 17:31 04/26/21 17:59 Temperature Pulse Rate 54 L 52 L 67 Respiratory Rate 15 15 Blood Pressure 220/98 H 220/98 H Pulse Oximetry 04/26/21 18:00 04/26/21 18:01 04/26/21 18:30 Temperature Pulse Rate 64 60 55 L Respiratory Rate 19 21 16 Blood Pressure Pulse Oximetry 04/26/21 18:31 Temperature Pulse Rate 55 L Respiratory Rate 16 Blood Pressure 198/91 H Pulse Oximetry 97 MDM - Altered Mental Status Lab Data Result diagrams: 04/26/21 15:30 04/26/21 15:30 Labs: Lab Results 04/26/21 04/26/21 04/26/21 Range/Units 15:30 15:30 17:37 WBC 5.4 (4.5-11.0) X10^3/uL RBC 3.83 L (4.5-5.9) X10^6/uL Hgb 12.2 L (13.5-17.5) g/dL Hct 36.4 L (41-53) % MCV 95.0 (80-100) fL MCH 31.8 (26-34) PG MCHC 33.5 (30-36) % RDW 13.3 (11.6-14.8) % Plt Count 162 (150-400) X10^3/uL Neut % (Auto) 57.9 (50-75) % Lymph % (Auto) 27.7 (25-40) % [place] % (Auto) 10.3 (3-14) % Eos % (Auto) 3.8 (2-4) % Baso % (Auto) 0.3 (0-2) % Neut # (Auto) 3100 (1187-7709) /uL Lymph # (Auto) 1500 (4742-7956) /uL [place] # (Auto) 600 (0-900) /uL Eos # (Auto) 200 (0-450) /uL Baso # (Auto) 0 (0-100) /uL Sodium 140 (137-145) mmol/L Potassium 3.9 (3.4-5.1) mmol/L Chloride 108 H (98-107) mmol/L Carbon Dioxide 28 (22-32) mmol/L BUN 16 (9-20) mg/dL Creatinine 0.71 (0.66-1.25) mg/dL Estimated GFR > 60.0 (>60) mL/min BUN/Creatinine Ratio 22.5 H (6-22) Glucose 104 (80-110) mg/dL Calcium 9.0 (8.4-10.2) mg/dL Magnesium 1.9 (1.6-2.3) mg/dL Total Bilirubin 0.7 (0.2-1.3) mg/dL AST 27 (17-59) IU/L ALT 12 (<50) IU/L Alkaline Phosphatase 50 (38-126) U/L Total Creatine Kinase 32 L (55-170) U/L CK-MB (CK-2) TNP CK-MB (CK-2) Rel Index TNP Troponin I 0.070 H 0.065 H (0.01-0.034) ng/mL Total Protein 6.0 L (6.3-8.2) g/dL Albumin 3.6 (3.5-5.0) g/dL Globulin 2.4 (1.7-4.1) g/dL Albumin/Globulin Ratio 1.5 (1.0-2.8) Lipase 32 (23-300) U/L Imaging Data Chest x-ray: Radiologist's Impression: [address] [address] XRay Report Signed Patient: Mason Clay MR#: [id number] : 1940 Acct:[id number] Age/Sex: 80 / M Date of Service: 04/26/21 Loc: ED Accession Number: [id number] ?? Procedure: XR chest 1V Ordering Provider: Yisel James D.O. PROCEDURE:? XR CHEST 1V ? INDICATIONS:? chest pain ? TECHNIQUE:? One view of the chest was acquired.? ? COMPARISON:? [facility], , XR CHEST 1V, 08/06/2020, 10:11. ? FINDINGS:? ? Surgical changes and devices:? Stable appearance of cardiac valvular prosthesis. ? Lungs and pleura:? Lungs are clear.? No pleural effusions or pneumothorax.? ? Mediastinum:? Mediastinal contours appear normal.? Heart size is normal.? ? Bones and chest wall:? No suspicious bony lesions.? Overlying soft tissues appear unremarkable.? ? IMPRESSION:? Stable examination of the chest without acute cardiopulmonary abnormalities. ?No focal airspace disease. ? ? Dictated by: Michele Hemphill M.D. on 04/26/2021 at 15:38 ? ? Approved by: Michele Hemphill M.D. on 04/26/2021 at 15:39?? ECG Data Attestation: I personally reviewed and interpreted this ECG as follows: Prior ECG tracings: available for review Interpretation: Sinus bradycardia rate of 48 [place] 160 QRS of 92 and QTC of 434. T-wave inversion in V4 5 and 6. Patient has prior from 10/16/2020 where lateral lead inversion is less obvious but is present on 08/06/2020 as well as 03/18/2018 EKGs. Sinus rhythm, rate of 63 [place] 170 QRS of 94 and QTC 476. [place] inversion V5 V6. No elevation. No other acute changes appreciated. Patient's EKG appears similar to priors. MDM Narrative Medical decision making narrative: This is an 80-year-old male who was in the vehicle with his full she was driving she states he was very difficult to awake after he had fallen asleep in the car which is typical. She states she poked and yelled at him he even grabbed his face. He did not respond for about 5 minutes. She states he then awoke and resume his normal mentation. He denies any issues or concerns, no pain, no shortness of breath, he became hypertensive in the department but had missed his evening dose of antihypertensive. They did have his home Parkinson's medications which he took. Had a Parkinsons medications increased today called Kynmob. Adverse events include sudden sleep episodes, orthostatic hypotension and syncope as well as QT prolongation. Discussed does might have complicated today situation but if patient has any new symptoms such as chest pain, recurrent episodes had shortness of breath he should have a more thorough cardiac evaluation. Patient has indeterminate troponin which is trending down words. Does not appear to have dynamic ST changes without chest pain or shortness of breath. Discharge Plan Departure Patient Disposition: Home Clinical Impression: Difficulty waking Activity Restrictions/Additional Instructions: Follow up with your physician for recheck. Talk with your physician about if you should have additional cardiac testing for a possible syncopal episode. Your medication Kynmobi does have known adverse reactions that might be related. I would talk with your physician to see if they would like to continue your medication at current dosage or adjust it. Please return for recurrent episodes, chest pain, shortness of breath, lightheadedness or passing out, persistent vomiting or other new or concerning symptoms. Prescriptions: No Action NITROGLYCERIN (Nitrostat) 0.4 mg Sublingual PRN Qty: 0 0RF ASPIRIN (Aspirin Low Dose) 81 mg PO QDAY Qty: 0 0RF Rytary 48.75-195 mg capsule, extended release 48.75 - 195 cap PO ONCE PM 0RF Rytary 61.25-245 mg capsule, extended release 61.25 - 245 cap PO QID 0RF rivastigmine 13.3 mg/24 hour patch 24 hour 13.3 mg transdermal DAILY 0RF amantadine HCl 100 mg tablet 100 mg PO 0RF Rx Instructions: 1/2 twice daily atorvastatin 40 mg tablet 40 mg PO DAILY 0RF duloxetine 30 mg capsule,delayed release(DR/EC) 30 mg PO DAILY 0RF lisinopril 5 mg tablet 10 mg PO DAILY 0RF loratadine 10 mg tablet 10 mg PO DAILY 0RF melatonin 5 mg Tablet 5 mg PO BEDTIME PRN (Reason: Sleep) 0RF carvedilol 3.125 mg tablet 3.125 mg PO BID 0RF Mucinex 1,200 mg Tablet Extended Release 12hr 1,200 mg PO DAILY 0RF levothyroxine [Synthroid] 125 mcg tablet 125 mcg PO DAILY 0RF Calcium + Vitamin D 0RF solifenacin 10 mg tablet 10 mg PO BEDTIME 0RF tamsulosin 0.4 mg capsule 0.4 mg PO DAILY 0RF Label Comments: takes 2 daily acetaminophen [Tylenol Extra Strength] 500 mg Capsule 500 mg PO Q6H PRN (Reason: Headache) 0RF trospium 20 mg tablet 20 mg PO DAILY 0RF isosorbide mononitrate 60 mg tablet extended release 24 hr 60 mg PO DAILY Qty: 90 0RF spironolactone 25 mg tablet 12.5 mg PO DAILY Qty: 60 0RF Referrals: Wes Johnson MD [Primary Care Provider] -
[2021-04-26 16:01] LABS: Add Manual Diff / Slide Review NO; Basophils Absolute Auto 0 /uL (0-100); Basophils Percent Auto 0.3 % (0-2); Eosinophils Absolute Auto 200 /uL (0-450); Eosinophils Percent Auto 3.8 % (2-4); Hematocrit 36.4 % (41-53); Hemoglobin 12.2 g/dL (13.5-17.5); Lymphocytes Absolute Auto 1500 /uL (1100-4500); Lymphocytes Percent Auto 27.7 % (25-40); Mean Corpuscular HGB Conc 33.5 % (30-36); Mean Corpuscular Hemoglobin 31.8 PG (26-34); Monocytes Absolute Auto 600 /uL (0-900); Monocytes Percent Auto 10.3 % (3-14); Neutrophils Absolute Auto 3100 /uL (1500-7000); Neutrophils Percent Auto 57.9 % (50-75); Platelet Count 162 X10^3/uL (150-400); Red Blood Cell Count 3.83 X10^6/uL (4.5-5.9); Red Cell Distribution Width 13.3 % (11.6-14.8); White Blood Cell Count 5.4 X10^3/uL (4.5-11.0)
[2021-04-26 16:44] LABS: Alanine Aminotransferase 12 IU/L (<50); Albumin 3.6 g/dL (3.5-5.0); Albumin Globulin Ratio 1.5 (1.0-2.8); Alkaline Phosphatase 50 U/L (38-126); Aspartate Aminotransferase 27 IU/L (17-59); BUN Creatinine Ratio 22.5 (6-22); Bilirubin Total 0.7 mg/dL (0.2-1.3); Blood Urea Nitrogen 16 mg/dL (9-20); Carbon Dioxide 28 mmol/L (22-32); Chloride 108 mmol/L (98-107); Creatine Kinase 32 U/L (55-170); Estimated Glomerular Filt Rate > 60.0 mL/min (>60); Globulin 2.4 g/dL (1.7-4.1); Glucose 104 mg/dL (80-110); HEMOLYSIS < 15 (0-50); Lipase 32 U/L (23-300); Magnesium 1.9 mg/dL (1.6-2.3); Potassium 3.9 mmol/L (3.4-5.1); Sodium 140 mmol/L (137-145)
[2021-04-26] MEDS: carvediloL 3.125 MG TABLET PO (17:59)
[2021-04-26 18:29] LABS: Troponin I 0.065 ng/mL (0.01-0.034)
== END 2021-04-26 18:59 | disposition home or self-care (01) ==
PROVIDERS: Emergency Provider Emergency Medicine; PCP Internal Medicine
DX: R26.2 Difficulty in walking, not elsewhere classified (principal)
CPT/HCPCS: 71045; 80053; 82550; 83690; 83735; 84484; 85025; 93005; 99283; 99284

== ENCOUNTER 2021-10-02 09:43 | Inpatient (IN) | payer MEDICARE, OTHER, SELFPAY ==
[2021-10-02] VITALS (8 sets, daily range): BP systolic 162–205; BP diastolic 84–94; PULSE 62–84; RESP 18–24; TEMP 36.6–39; O2SAT 91–96; BMI 22.5
--- NOTE | 2021-10-02 09:50 | DI.RAD.S_ITS ---
PROCEDURE: XR CHEST 1V INDICATIONS: suspected sepsis TECHNIQUE: One view of the chest was acquired. COMPARISON: [facility], CR, XR CHEST 1V, 04/26/2021, 16:02. FINDINGS: Surgical changes and devices: Aortic valve prosthesis is stable. Lungs and pleura: Lungs are clear. No pleural effusions or pneumothorax. Mediastinum: Mediastinal contours appear normal. Heart is enlarged. Bones and chest wall: No suspicious bony lesions. Overlying soft tissues appear unremarkable. IMPRESSION: No acute cardiopulmonary disease process. Dictated by: Carito Fine MD, PhD on 10/02/2021 at 11:02 Approved by: Carito Fine MD, PhD on 10/02/2021 at 11:03
[2021-10-02 10:01] LABS: Add Manual Diff / Slide Review NO; Basophils Absolute Auto 0 /uL (0-100); Basophils Percent Auto 0.3 % (0-2); Eosinophils Absolute Auto 0 /uL (0-450); Eosinophils Percent Auto 0.3 % (2-4); Hematocrit 39.3 % (41-53); Hemoglobin 13.5 g/dL (13.5-17.5); Lymphocytes Absolute Auto 900 /uL (1100-4500); Lymphocytes Percent Auto 9.4 % (25-40); Mean Corpuscular HGB Conc 34.2 % (30-36); Mean Corpuscular Hemoglobin 32.3 PG (26-34); Mean Corpuscular Volume 94.3 fL (80-100); Monocytes Absolute Auto 700 /uL (0-900); Monocytes Percent Auto 8.2 % (3-14); Neutrophils Absolute Auto 7500 /uL (1500-7000); Neutrophils Percent Auto 81.8 % (50-75); Platelet Count 137 X10^3/uL (150-400); Red Blood Cell Count 4.17 X10^6/uL (4.5-5.9); White Blood Cell Count 9.1 X10^3/uL (4.5-11.0)
[2021-10-02] MEDS: ACETAMINOPHEN 325 MG TABLET 975 MG PO (10:04)
[2021-10-02 10:11] LABS: Lactate (Lactic Acid) 1.1 mmol/L (0.7-2.1)
[2021-10-02 10:12] LABS: Alanine Aminotransferase 7 IU/L (<50); Albumin 3.8 g/dL (3.5-5.0); Albumin Globulin Ratio 1.4 (1.0-2.8); Alkaline Phosphatase 60 U/L (38-126); Aspartate Aminotransferase 33 IU/L (17-59); BUN Creatinine Ratio 18.8 (6-22); Bilirubin Total 0.6 mg/dL (0.2-1.3); Blood Urea Nitrogen 16 mg/dL (9-20); Calcium 8.4 mg/dL (8.4-10.2); Carbon Dioxide 24 mmol/L (22-32); Chloride 109 mmol/L (98-107); Estimated Glomerular Filt Rate > 60 mL/min (>60); Globulin 2.8 g/dL (1.7-4.1); Glucose 111 mg/dL (80-110); HEMOLYSIS 18 (0-50); Lipase 28 U/L (23-300); Potassium 3.8 mmol/L (3.4-5.1); Sodium 138 mmol/L (137-145); Total Protein 6.6 g/dL (6.3-8.2)
[2021-10-02 10:13] LABS: D Dimer 409 ng/mL (<230)
[2021-10-02 10:16] LABS: Creatine Kinase 134 U/L (55-170)
--- NOTE | 2021-10-02 10:28 | ED.SEPSIS ---
HPI - Sepsis General Chief Complaint: Upper Respiratory Symptoms Mode of arrival: EMS Source: EMS Evaluation Sepsis Screen: Possible Sepsis Risk Sepsis Infection Criteria Present: Suspected New Infection Narrative: Patient is a 81-year-old male history of Parkinson's presenting today with 2 days of decreasing mental status. states that he is normally able to get up and use a walker he is able to feed himself and go to the restroom but he does need help getting dressed. For last 2 days he has had increasing weakness. He was seen and evaluated yesterday at [facility] where he received blood work and IV fluids. states today he has decreasing his mental status he is more confused he apparently was 89% on room air for EMS. Presents today febrile is he is able to follow commands but is definitely lethargic. He received 2 L normal saline bolus blood work was unremarkable and he was discharged home. He denies any shortness of breath. He does have some congestion cough Review of Systems Constitutional Constitutional: Reports fatigue, Reports fever(s) and Reports poor appetite Cardiovascular Cardiovascular: Denies chest pain, Denies leg edema and Denies dyspnea Respiratory Respiratory: Denies chest congestion, Reports cough and Denies dyspnea Gastrointestinal Gastrointestinal: Denies abdominal pain, Denies nausea and Denies vomiting Integumentary/Breasts Skin/Breast: Denies erythema and Denies rash Endocrine Endocrine: Reports fatigue Patient History Medical History Coronary artery disease Hyperlipidemia Hypertension Hypothyroid Parkinson's disease Surgical History No pertinent past surgical history Stented coronary artery Social History household members: spouse Smoking Status: Never smoker alcohol intake: current Smoking Status: Never smoker alcohol intake frequency: 0-2 drinks per day Substance Use Type: does not use Exam Initial Vital Signs Initial Vital Signs: Vital Signs Temperature 102.2 F H 10/02/21 09:46 Pulse Rate 84 10/02/21 09:46 Respiratory Rate 24 10/02/21 09:46 Blood Pressure 205/94 H 10/02/21 09:46 Pulse Oximetry 91 10/02/21 09:46 Oxygen Delivery Method 10/02/21 09:46 GENERAL: Week 81-year-old male sleepy but arousable HEENT: Head atraumatic,EOMI, pupils reactive, face symmetric, moist mucous membranes CARDIOVASCULAR: Regular rate and rhythm without murmurs, rubs or gallops. RESPIRATORY: Breath sounds equal bilaterally, no wheezes rales or rhonchi. ABDOMEN: Soft, nontender. Normoactive bowel sounds all 4 quadrants. No guarding or rebound. EXTREMITIES: Normal range of motion, no clubbing or edema. Neurovascularly intact NEUROLOGICAL: Strength equal bilaterally left leg is weaker than right leg SKIN: Warm, dry, no laceration, no petechiae, no rashes or lesions. Course Orders Ordered: ED Orders 10/02/21 09:45 EKG-12 Lead Stat 10/02/21 09:50 XR chest 1V Stat BNP [NT-proBNP (BNP-Adult 18+)] Stat COVID19 -Nasal RAPID/Pre-Proc Stat Complete Blood Count AUTO DIFF Stat Comprehensive Metabolic Panel Stat D Dimer Stat Lactate (Lactic Acid) Stat Lipase Stat Procalcitonin Stat Troponin & CK Cardiac Panel Stat RT Consult Eval and Treat NOW 10/02/21 10:09 Blood Culture Stat 10/02/21 10:29 CT head/brain wo con Stat 10/02/21 11:25 CT angio chest PE protocol Stat Acetaminophen (Acetaminophen 325 Mg Tablet) 650 mg PO Q6HR PRN PRN Reason: Fever/Mild Pain (1-3) Dexamethasone (Dexamethasone 10 Mg/Ml Vial) 6 mg PO DAILY WENDY Stop: 10/12/21 08:59 Heparin Sodium/Dextrose (Heparin Drip) 25,000 unit in 500 mls @ 17.091 mls/hr IV CONT WENDY; Protocol Last Titration: 10/02/21 13:17 Dose: 12 units/kg/hr, 17.091 mls/hr Documented By: Admin: 10/02/21 12:43 Dose: 12 units/kg/hr, 17.091 mls/hr Documented By: RANDY Cefepime HCl 2 gm/ Sodium (Chloride) 100 mls @ 200 mls/hr IV Q8H WENDY Last Infusion: 10/02/21 16:52 Dose: 0 mls/hr Documented By: Admin: 10/02/21 15:04 Dose: 200 mls/hr Documented By: MOLLY Vancomycin HCl (Vancomycin) 1,000 mg in 200 mls @ 200 mls/hr IV Q12H ON LICENSE OF [facility] Last Admin: 10/02/21 16:50 Dose: 200 mls/hr Documented By: MOLLY Remdesivir 100 mg/ Sodium (Chloride) 250 mls @ 250 mls/hr IV DAILY ON LICENSE OF [facility] Stop: 10/06/21 09:59 Vancomycin HCl (Vancomycin Trough) 1 request MISC NOW ONE Stop: 10/04/21 03:31 Vancomycin HCl (Vancomycin Peak) 1 request MISC NOW ONE Stop: 10/04/21 06:01 Discontinued Medications Acetaminophen (Acetaminophen 325 Mg Tablet) 975 mg PO NOW ONE Stop: 10/02/21 09:53 Last Admin: 10/02/21 10:04 Dose: 975 mg Documented By: RANDY Dexamethasone (Dexamethasone 10 Mg/Ml Vial) 6 mg IV NOW ONE Stop: 10/02/21 11:03 Last Admin: 10/02/21 12:42 Dose: 6 mg Documented By: RANDY Heparin Sodium (Porcine) (Heparin 5,000 Unit/Ml Vial) 4,000 unit IV NOW ONE Stop: 10/02/21 12:02 Last Admin: 10/02/21 12:43 Dose: 4,000 unit Documented By: RANDY Sodium Chloride (Normal Saline 0.9%) 1,000 mls @ 1,000 mls/hr IV BOLUS ONE Stop: 10/02/21 10:49 Last Admin: 10/02/21 10:00 Dose: Not Given Documented By: RANDY Remdesivir 200 mg/ Sodium (Chloride) 250 mls @ 250 mls/hr IV NOW ONE Stop: 10/02/21 11:03 Last Infusion: 10/02/21 13:17 Dose: 250 mls/hr Documented By: Admin: 10/02/21 12:43 Dose: 250 mls/hr Documented By: RANDY Cefepime HCl 2 gm/ Sodium (Chloride) 100 mls @ 200 mls/hr IV Q8H ON LICENSE OF [facility] Last Admin: 10/02/21 17:21 Dose: Not Given Documented By: MOLLY Vancomycin HCl (Vancomycin) 1,000 mg in 200 mls @ 200 mls/hr IV Q12H ON LICENSE OF [facility] Vancomycin HCl (Vancomycin Per Pharmacy) 1 request MISC NOW ONE Stop: 10/02/21 12:37 Last Admin: 10/02/21 14:19 Dose: Not Given Documented By: MOLLY Vital Signs Vital signs: Vital Signs - 8 hr 10/02/21 09:46 10/02/21 10:04 Temperature 102.2 F H 102.2 F H Pulse Rate 84 Respiratory Rate 24 Blood Pressure 205/94 H Pulse Oximetry 91 Oxygen Delivery Method Room Air Sepsis Guideline Criteria Level 1 - Infection Sepsis Infection Criteria Present: Suspected New Infection Treatment Initiated Antibiotics:: IV antimicrobials will be initiated as soon as possible after recognition of sepsis state and within one hour for both sepsis and septic shock. MDM - Sepsis Lab Data Result diagrams: 10/02/21 09:50 10/02/21 09:50 Labs: Lab Results 10/02/21 10/02/21 10/02/21 Range/Units 09:50 09:50 09:50 WBC 9.1 (4.5-11.0) X10^3/uL RBC 4.17 L (4.5-5.9) X10^6/uL Hgb 13.5 (13.5-17.5) g/dL Hct 39.3 L (41-53) % MCV 94.3 (80-100) fL MCH 32.3 (26-34) PG MCHC 34.2 (30-36) % RDW 14.0 (11.6-14.8) % Plt Count 137 L (150-400) X10^3/uL Neut % (Auto) 81.8 H (50-75) % Lymph % (Auto) 9.4 L (25-40) % [place] % (Auto) 8.2 (3-14) % Eos % (Auto) 0.3 L (2-4) % Baso % (Auto) 0.3 (0-2) % Neut # (Auto) 7500 H (4110-2172) /uL Lymph # (Auto) 900 L (4736-4757) /uL [place] # (Auto) 700 (0-900) /uL Eos # (Auto) 0 (0-450) /uL Baso # (Auto) 0 (0-100) /uL D-Dimer (<230) ng/mL Sodium 138 (137-145) mmol/L Potassium 3.8 (3.4-5.1) mmol/L Chloride 109 H (98-107) mmol/L Carbon Dioxide 24 (22-32) mmol/L BUN 16 (9-20) mg/dL Creatinine 0.85 (0.66-1.25) mg/dL Estimated GFR > 60 (>60) mL/min BUN/Creatinine Ratio 18.8 (6-22) Glucose 111 H (80-110) mg/dL Lactate 1.1 (0.7-2.1) mmol/L Calcium 8.4 (8.4-10.2) mg/dL Total Bilirubin 0.6 (0.2-1.3) mg/dL AST 33 (17-59) IU/L ALT 7 (<50) IU/L Alkaline Phosphatase 60 (38-126) U/L Total Creatine Kinase (55-170) U/L CK-MB (CK-2) (<2.37) ng/mL CK-MB (CK-2) Rel Index (1.5-5.0) % Troponin I (0.01-0.034) ng/mL NT-Pro-B Natriuret Pep (<450) pg/mL Total Protein 6.6 (6.3-8.2) g/dL Albumin 3.8 (3.5-5.0) g/dL Globulin 2.8 (1.7-4.1) g/dL Albumin/Globulin Ratio 1.4 (1.0-2.8) Lipase 28 (23-300) U/L Procalcitonin 0.05 (<0.5) ng/mL SARS-CoV-2 (PCR) (Negative) 10/02/21 10/02/21 10/02/21 Range/Units 09:50 09:50 09:50 WBC (4.5-11.0) X10^3/uL RBC (4.5-5.9) X10^6/uL Hgb (13.5-17.5) g/dL Hct (41-53) % MCV (80-100) fL MCH (26-34) PG MCHC (30-36) % RDW (11.6-14.8) % Plt Count (150-400) X10^3/uL Neut % (Auto) (50-75) % Lymph % (Auto) (25-40) % [place] % (Auto) (3-14) % Eos % (Auto) (2-4) % Baso % (Auto) (0-2) % Neut # (Auto) (9311-6899) /uL Lymph # (Auto) (3956-5543) /uL [place] # (Auto) (0-900) /uL Eos # (Auto) (0-450) /uL Baso # (Auto) (0-100) /uL D-Dimer 409 H (<230) ng/mL Sodium (137-145) mmol/L Potassium (3.4-5.1) mmol/L Chloride (98-107) mmol/L Carbon Dioxide (22-32) mmol/L BUN (9-20) mg/dL Creatinine (0.66-1.25) mg/dL Estimated GFR (>60) mL/min BUN/Creatinine Ratio (6-22) Glucose (80-110) mg/dL Lactate (0.7-2.1) mmol/L Calcium (8.4-10.2) mg/dL Total Bilirubin (0.2-1.3) mg/dL AST (17-59) IU/L ALT (<50) IU/L Alkaline Phosphatase (38-126) U/L Total Creatine Kinase 134 (55-170) U/L CK-MB (CK-2) 5.20 H (<2.37) ng/mL CK-MB (CK-2) Rel Index 3.9 (1.5-5.0) % Troponin I 1.390 H* (0.01-0.034) ng/mL NT-Pro-B Natriuret Pep 44164 H (<450) pg/mL Total Protein (6.3-8.2) g/dL Albumin (3.5-5.0) g/dL Globulin (1.7-4.1) g/dL Albumin/Globulin Ratio (1.0-2.8) Lipase (23-300) U/L Procalcitonin (<0.5) ng/mL SARS-CoV-2 (PCR) Positive H (Negative) Imaging Data Chest x-ray: Radiologist's Impression: Mason denis MR#: [id number] : 1940 Acct:[id number] Age/Sex: 81 / M Date of Service: 10/02/21 Loc: ED Accession Number: [id number] ?? Procedure: XR chest 1V Ordering Provider: Nicolasa Tatum D.O. PROCEDURE:? XR CHEST 1V ? INDICATIONS:? suspected sepsis ? TECHNIQUE:? One view of the chest was acquired.? ? COMPARISON:? [facility], CR, XR CHEST 1V, 04/26/2021, 16:02. ? FINDINGS:? ? Surgical changes and devices:? Aortic valve prosthesis is stable. ? Lungs and pleura:? Lungs are clear.? No pleural effusions or pneumothorax.? ? Mediastinum:? Mediastinal contours appear normal.? Heart is enlarged. ? Bones and chest wall:? No suspicious bony lesions.? Overlying soft tissues appear unremarkable.? ? IMPRESSION:? No acute cardiopulmonary disease process. ? ? Dictated by: Carito Fine MD, PhD on 10/02/2021 at 11:02 ? ? CT scan - head: Radiologist's Impression: [place] [id number] CT Scan Report Signed Patient: Mason Clay MR#: [id number] : 1940 Acct:[id number] Age/Sex: 81 / M Date of Service: 10/02/21 Loc: ED Accession Number: [id number] ?? Procedure: CT head/brain wo con Ordering Provider: Nicolasa Tatum D.O. PROCEDURE:? CT HEAD/BRAIN WO CON ? INDICATIONS:? decreased mental status ? TECHNIQUE:? Noncontrast 4.5 mm thick angled axial sections acquired from the foramen magnum to the vertex, with coronal and sagittal reformats.? For radiation dose reduction, the following was used:? automated exposure control, adjustment of mA and/or kV according to patient size.? ? COMPARISON:? None. ? FINDINGS:? Image quality:? Excellent.? ? CSF spaces:? Basal cisterns are patent.? No extra-axial fluid collections.? The ventricles are symmetric in size and shape.? ? Brain:? No intracranial bleeds or masses.? There is cerebral volume loss for age, with resultant ventricular and sulcal prominence.? There are periventricular and deep white matter chronic small vessel ischemic changes.? Remote lacunar infarctions can be seen involving the basal ganglia.? There is intracranial internal carotid artery atherosclerosis.? ? Skull and face:? Calvarium and visualized facial bones appear intact, without suspicious lesions.? Note is made remote bony fragmentation adjacent to the dens posterior and superiorly, as on series 5, image 18 and on series 3 image 4. ? Sinuses:? Visualized sinuses and mastoids are clear.? IMPRESSION:? No acute abnormality is seen. ? Areas of remote infarction can be seen. ? If there is strong clinical suspicion for an acute stroke, please consider a brain MRI for further evaluation, as it is more sensitive (assuming that there is no contraindication to MRI). ? Chronic bony fragmentation can be seen within the region of the dens superiorly and posteriorly.? This is attributed to a remote injury, although differential diagnosis includes congenital deformity.? ? ? Dictated by: Mickey Redding M.D. on 10/02/2021 at 11:35 ? ? CT scan - chest: Radiologist's Impression: [place] [id number] CT Scan Report Signed Patient: Mason Clay MR#: [id number] : 1940 Acct:[id number] Age/Sex: 81 / M Date of Service: 10/02/21 Loc: ED Accession Number: [id number] ?? Procedure: CT angio chest PE protocol Ordering Provider: Nicolasa Tatum D.O. PROCEDURE:? CT ANGIO CHEST PE PROTOCOL ? INDICATIONS:? covid hypoxia ? TECHNIQUE:? After the administration of intravenous contrast, 2 mm thick sections acquired from the pulmonary apices to the posterior costophrenic angles.? 3-dimensional maximum intensity projection (MIP) coronal and sagittal reformats were then acquired through the thorax.? For radiation dose reduction, the following was used:? automated exposure control, adjustment of mA and/or kV according to patient size.? ? COMPARISON:? None. ? FINDINGS:? Image quality:? Excellent.? ? Pulmonary arteries:? Pulmonary arteries are normal in size, and demonstrate no intraluminal filling defects to suggest central pulmonary embolism.? ? Lungs and pleura:? Atelectasis noted in the dependent portions of the lung bases.? Trace right-sided pleural fluid collection.? No pneumothorax.? Central and peripheral airways are patent.? ? Mediastinum:? Heart is enlarged, without pericardial effusion.? Status post TAVR. Atherosclerotic calcifications are noted in the aorta, great vessels and the coronary vasculature.? No mediastinal or hilar adenopathy.? Thoracic aorta is normal in caliber and enhancement.? Esophagus is normal in caliber.? Moderate-sized hiatal hernia. ? Bones and chest wall:? No suspicious bony lesions.? Ribs and thoracic spine appear intact throughout.? Thyroid gland is within normal limits.? No axillary or supraclavicular adenopathy.? ? Abdomen:? 2.0 centimeter gallstone.? Visualized upper abdominal solid organs appear normal in the early arterial phase of enhancement.? ? IMPRESSION:? ? 1. No pulmonary embolus. ? 2. No lung consolidation.? ? 3. Trace right-sided pleural fluid collection. ? 4. Cardiomegaly. ? 5. Atherosclerosis including dense atherosclerotic calcifications in the coronary vasculature. ? 5. Cholelithiasis.? ? ? Dictated by: Carito Fine MD, PhD on 10/02/2021 at 11:56 ? ? ECG Data Interpretation: Normal sinus rhythm, Q-wave noted in lead 3 similar to previous EKG in March no ST changes or T-wave inversions Rate 80 P.r. interval 166 QRS 92 QTC 440 MDM Narrative Medical decision making narrative: Patient is found to be febrile and confused. He is mildly hypoxic requiring 1-2 L. he is found to be COVID positive with a significantly elevated troponin of 1.3. He has no EKG changes. Troponin is likely secondary to sepsis. 11:45 Dr. Zaldivar, Cardiology has been obtained patient's symptoms test results. With COVID B and a hypercoagulable state recommends heparin drip for 48 hours. At this time agrees with probable secondary cause of elevated troponin. Recommend echo as well. Critical Care Time Critical Care Time Critical Care Time: Yes Total Critical Care Time: 45 Attestation: The high probability of a clinically significant, sudden or life threatening deterioration of the [cardiovascular] system(s) required my full and direct attention, intervention and personal management. The aggregate critical care time was [45] minutes. This time is in addition to time spent performing reported procedures but includes the following: [x] Data Review and interpretation [x] Patient assessment and monitoring of vital signs [x] Documentation [x] Medication orders and management Discharge Plan Departure Patient Disposition: Admitted As Inpatient Clinical Impression: COVID-19, Non-ST elevation OK (NSTEMI) Admit Date/Time: 10/02/21 12:05 Admit Provider: Giuseppe Motta
[2021-10-02 10:29] LABS: NT-proBNP (BNP-Adult 18+) 18200 pg/mL (<450)
--- NOTE | 2021-10-02 10:29 | DI.CT.S_ITS ---
PROCEDURE: CT HEAD/BRAIN WO CON INDICATIONS: decreased mental status TECHNIQUE: Noncontrast 4.5 mm thick angled axial sections acquired from the foramen magnum to the vertex, with coronal and sagittal reformats. For radiation dose reduction, the following was used: automated exposure control, adjustment of mA and/or kV according to patient size. COMPARISON: None. FINDINGS: Image quality: Excellent. CSF spaces: Basal cisterns are patent. No extra-axial fluid collections. The ventricles are symmetric in size and shape. Brain: No intracranial bleeds or masses. There is cerebral volume loss for age, with resultant ventricular and sulcal prominence. There are periventricular and deep white matter chronic small vessel ischemic changes. Remote lacunar infarctions can be seen involving the basal ganglia. There is intracranial internal carotid artery atherosclerosis. Skull and face: Calvarium and visualized facial bones appear intact, without suspicious lesions. Note is made remote bony fragmentation adjacent to the dens posterior and superiorly, as on series 5, image 18 and on series 3 image 4. Sinuses: Visualized sinuses and mastoids are clear. IMPRESSION: No acute abnormality is seen. Areas of remote infarction can be seen. If there is strong clinical suspicion for an acute stroke, please consider a brain MRI for further evaluation, as it is more sensitive (assuming that there is no contraindication to MRI). Chronic bony fragmentation can be seen within the region of the dens superiorly and posteriorly. This is attributed to a remote injury, although differential diagnosis includes congenital deformity. Dictated by: Mickey Redding M.D. on 10/02/2021 at 11:35 Approved by: Mickey Redding M.D. on 10/02/2021 at 11:38
[2021-10-02 10:31] LABS: Procalcitonin 0.05 ng/mL (<0.5)
[2021-10-02 10:32] LABS: CKMB % Relative Index 3.9 % (1.5-5.0)
[2021-10-02 10:59] LABS: COVID19 -Nasal RAPID POSITIVE (Negative)
--- NOTE | 2021-10-02 11:25 | DI.CT.S_ITS ---
PROCEDURE: CT ANGIO CHEST PE PROTOCOL INDICATIONS: covid hypoxia TECHNIQUE: After the administration of intravenous contrast, 2 mm thick sections acquired from the pulmonary apices to the posterior costophrenic angles. 3-dimensional maximum intensity projection (MIP) coronal and sagittal reformats were then acquired through the thorax. For radiation dose reduction, the following was used: automated exposure control, adjustment of mA and/or kV according to patient size. COMPARISON: None. FINDINGS: Image quality: Excellent. Pulmonary arteries: Pulmonary arteries are normal in size, and demonstrate no intraluminal filling defects to suggest central pulmonary embolism. Lungs and pleura: Atelectasis noted in the dependent portions of the lung bases. Trace right-sided pleural fluid collection. No pneumothorax. Central and peripheral airways are patent. Mediastinum: Heart is enlarged, without pericardial effusion. Status post TAVR. Atherosclerotic calcifications are noted in the aorta, great vessels and the coronary vasculature. No mediastinal or hilar adenopathy. Thoracic aorta is normal in caliber and enhancement. Esophagus is normal in caliber. Moderate-sized hiatal hernia. Bones and chest wall: No suspicious bony lesions. Ribs and thoracic spine appear intact throughout. Thyroid gland is within normal limits. No axillary or supraclavicular adenopathy. Abdomen: 2.0 centimeter gallstone. Visualized upper abdominal solid organs appear normal in the early arterial phase of enhancement. IMPRESSION: 1. No pulmonary embolus. 2. No lung consolidation. 3. Trace right-sided pleural fluid collection. 4. Cardiomegaly. 5. Atherosclerosis including dense atherosclerotic calcifications in the coronary vasculature. 5. Cholelithiasis. Dictated by: Carito Fine MD, PhD on 10/02/2021 at 11:56 Approved by: Carito Fine MD, PhD on 10/02/2021 at 12:01
[2021-10-02] MEDS: DEXAMETHASONE 10 MG/ML VIAL 6 MG IV (12:42)
[2021-10-02] MEDS: REMDESIVIR 200 MG in SODIUM CHLORIDE 0.9% 210 ML 250 MG IV (12:43)
[2021-10-02] MEDS: HEPARIN DRIP 25,000 UNIT/500 ML IV.SOLN 17.091 UNIT IV (12:43)
[2021-10-02] MEDS: HEPARIN 5,000 UNIT/ML VIAL 4000 UNIT IV (12:43)
--- NOTE | 2021-10-02 14:28 | PC.NURSE ---
Addendum entered by Brittani Tee R.N. 10/02/21 18:05: Patients troponin up from 1.39 to 2.9. and Coordinator aware, patient denies chest pain. Addendum entered by Brittani Tee R.N. 10/02/21 15:16: Patients hob up to 45 degrees, he is having a hard time clearing his throat but not choking. He does have a moist cough, encouraged to cough up some stuff in his throat, but he states he cant. He is groggy but coherent. Resting comfortably. Tele is being placed on patient. Original Note: Assess- Patient is alert but confused at times. He does answer some questions appropriately. 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 Patient states that he had cancer. Patient is tolerating his heparin drip at 17cc/hr and tolerating well. Patients skin is clear, he has a bruise to his r.hand and dry skin to his forehead. Breath sounds are clear, patient has a moist cough, and is on 2/3l of oxygen. He is resting supine and sleeping. He denies chest pain, heart rate regular.
[2021-10-02] MEDS: CEFEPIME 2 GM in SODIUM CHLORIDE 0.9% 100 ML IV ×2 (15:04→22:21)
--- NOTE | 2021-10-02 15:59 | PM.HP.1 ---
History of Present Illness History of Present Illness Date Patient Seen: 10/02/21 Time Patient Seen: 16:00 Chief complaint: Cough Patient History Medical History Coronary artery disease Hyperlipidemia Hypertension Hypothyroid Parkinson's disease Surgical History No pertinent past surgical history Stented coronary artery Family & Social History Social History: household members spouse Prior Living Arrangements House Safety & Behavioral: Feels Safe in Current Yes Environment Been Physically Hurt or No Threatened By a Person Tobacco & Substance use: Smoking Status Never smoker alcohol intake current alcohol intake frequency 0-2 drinks per day Substance Use Type does not use Meds Home Medications and Allergies Home Medications Medication Instructions Recorded Confirmed Type acetaminophen 500 mg capsule 500 mg PO Q6H PRN Headache 08/06/20 10/02/21 History amantadine HCl 100 mg tablet 100 mg PO BID 08/06/20 10/02/21 History atorvastatin 40 mg tablet 40 mg PO DAILY 08/06/20 10/02/21 History carbidopa ER 48.75 mg-levodopa 195 48.75 - 195 cap PO BID 08/06/20 10/02/21 History mg capsule,extended release (Rytary) carbidopa ER 61.25 mg-levodopa 245 61.25 - 245 cap PO BID 08/06/20 10/02/21 History mg capsule,extended release (Rytary) carvedilol 3.125 mg tablet 3.25 mg PO BID 08/06/20 10/02/21 History duloxetine 30 mg capsule,delayed 30 mg PO DAILY 08/06/20 10/02/21 History release guaifenesin 1,200 mg tablet, 1,200 mg PO DAILY 08/06/20 10/02/21 History extended release 12 hr (Mucinex) isosorbide mononitrate 60 mg 60 mg PO DAILY #90 tabs 08/06/20 10/02/21 Rx tablet,extended release 24 hr levothyroxine 125 mcg tablet 125 mcg PO DAILY 08/06/20 10/02/21 History (Synthroid) lisinopril 5 mg tablet 5 mg PO DAILY 08/06/20 10/02/21 History loratadine 10 mg tablet 10 mg PO DAILY 08/06/20 10/02/21 History melatonin 5 mg tablet 5 mg PO BEDTIME PRN Sleep 08/06/20 10/02/21 History rivastigmine 13.3 mg/24 hour 13.3 mg transdermal DAILY 08/06/20 10/02/21 History transdermal patch spironolactone 25 mg tablet 12.5 mg PO DAILY #60 tabs 08/06/20 10/02/21 Rx tamsulosin 0.4 mg capsule 0.4 mg PO BID 08/06/20 10/02/21 History apomorphine 15 mg sublingual film 15 mg sublingual PRN PRN Tremor(S) 10/02/21 10/02/21 History (Kynmobi) aspirin 81 mg capsule 81 mg PO DAILY 10/02/21 10/02/21 History cholecalciferol (vitamin D3) 25 25 mcg PO DAILY 10/02/21 10/02/21 History mcg (1,000 unit) capsule nitroglycerin 0.4 mg sublingual 0.4 mg sublingual Q5M PRN Angina 10/02/21 10/02/21 History tablet Allergies Allergy/AdvReac Type Severity Reaction Status Date / Time No Known Drug Allergies Allergy Verified 10/02/21 09:50 Exam Vital Signs (past 8 hours): - 10/02/21 09:46 10/02/21 10:04 10/02/21 13:14 Temperature 102.2 F H 102.2 F H 99.9 F H Pulse Rate 84 Respiratory Rate 24 Blood Pressure 205/94 H Pulse Oximetry 91 Oxygen Delivery Method Room Air Oxygen Flow Rate 10/02/21 13:48 Temperature 98.0 F Pulse Rate 76 Respiratory Rate 22 Blood Pressure 174/94 H Pulse Oximetry 93 Oxygen Delivery Method Oxygen Flow Rate 2 Oxygen Delivery Method Room Air Oxygen Flow Rate 2 Objective Labs Result Diagrams: 10/02/21 09:50 10/02/21 09:50 Labs: Laboratory Results - last 24 hr 10/02/21 10/02/21 10/02/21 09:50 09:50 09:50 WBC 9.1 RBC 4.17 L Hgb 13.5 Hct 39.3 L MCV 94.3 MCH 32.3 MCHC 34.2 RDW 14.0 Plt Count 137 L Neut % (Auto) 81.8 H Lymph % (Auto) 9.4 L [place] % (Auto) 8.2 Eos % (Auto) 0.3 L Baso % (Auto) 0.3 Neut # (Auto) 7500 H Lymph # (Auto) 900 L [place] # (Auto) 700 Eos # (Auto) 0 Baso # (Auto) 0 D-Dimer Sodium 138 Potassium 3.8 Chloride 109 H Carbon Dioxide 24 BUN 16 Creatinine 0.85 Estimated GFR > 60 BUN/Creatinine Ratio 18.8 Glucose 111 H Lactate 1.1 Calcium 8.4 Total Bilirubin 0.6 AST 33 ALT 7 Alkaline Phosphatase 60 Total Creatine Kinase CK-MB (CK-2) CK-MB (CK-2) Rel Index Troponin I NT-Pro-B Natriuret Pep Total Protein 6.6 Albumin 3.8 Globulin 2.8 Albumin/Globulin Ratio 1.4 Lipase 28 Procalcitonin 0.05 SARS-CoV-2 (PCR) 10/02/21 10/02/21 10/02/21 09:50 09:50 09:50 WBC RBC Hgb Hct MCV MCH MCHC RDW Plt Count Neut % (Auto) Lymph % (Auto) [place] % (Auto) Eos % (Auto) Baso % (Auto) Neut # (Auto) Lymph # (Auto) [place] # (Auto) Eos # (Auto) Baso # (Auto) D-Dimer 409 H Sodium Potassium Chloride Carbon Dioxide BUN Creatinine Estimated GFR BUN/Creatinine Ratio Glucose Lactate Calcium Total Bilirubin AST ALT Alkaline Phosphatase Total Creatine Kinase 134 CK-MB (CK-2) 5.20 H CK-MB (CK-2) Rel Index 3.9 Troponin I 1.390 H* NT-Pro-B Natriuret Pep 87634 H Total Protein Albumin Globulin Albumin/Globulin Ratio Lipase Procalcitonin SARS-CoV-2 (PCR) Positive H Assessment & Plan Time Spent With Patient Critical Care time: I spent a total of [] minutes of critical care time on this patient's care today; this time is exclusive of procedural time. Quality VTE Deep Vein Thrombosis/Pulmonary Embolism Present on Admission: No
[2021-10-02] MEDS: VANCOMYCIN 1,000 MG/200 ML PIGGYBACK 200 MG IV (16:50)
[2021-10-02 20:36] LABS: PTT Partial Thromboplastin Tim 113 SECONDS (26.4-36.2)
[2021-10-02 20:41] LABS: INR 1.2 (0.9-1.3); Prothrombin Time 13.6 SECONDS (10.1-12.7)
--- NOTE | 2021-10-02 21:03 | PM.HP.1 ---
History of Present Illness History of Present Illness Date Patient Seen: 10/02/21 Time Patient Seen: 21:03 Chief complaint: Cough Narrative: This is an 81 year old male with coronary artery disease, hyperlipidemia, hypertension, hypothyroidism and Parkinson's disease who presents with 2 days of increasing mental confusion, weakness, inability to dress or feed himself and fever. He is found to be COVID positive. His troponin is elevated at 1.3 and 2.9 consistent with acute illness increased cardiac stress/demand ischemia. He is not a candidate for a cardiac catheterization with his COVID so Cardiology has recommended a 48 hour heparin drip. His chest x-ray shows no evidence of viral pneumonia. He was started on dexamethasone and remdesivir in the ED. He was also given initial doses of IV antibiotics for possible community-acquired pneumonia. Patient History Medical History Coronary artery disease Hyperlipidemia Hypertension Hypothyroid Parkinson's disease Surgical History No pertinent past surgical history Stented coronary artery Family & Social History Social History: household members spouse Prior Living Arrangements House Safety & Behavioral: Feels Safe in Current Yes Environment Been Physically Hurt or No Threatened By a Person Tobacco & Substance use: Smoking Status Never smoker alcohol intake current alcohol intake frequency 0-2 drinks per day Substance Use Type does not use Meds Home Medications and Allergies Home Medications Medication Instructions Recorded Confirmed Type acetaminophen 500 mg capsule 500 mg PO Q6H PRN Headache 08/06/20 10/02/21 History amantadine HCl 100 mg tablet 100 mg PO BID 08/06/20 10/02/21 History atorvastatin 40 mg tablet 40 mg PO DAILY 08/06/20 10/02/21 History carbidopa ER 48.75 mg-levodopa 195 48.75 - 195 cap PO BID 08/06/20 10/02/21 History mg capsule,extended release (Rytary) carbidopa ER 61.25 mg-levodopa 245 61.25 - 245 cap PO BID 08/06/20 10/02/21 History mg capsule,extended release (Rytary) carvedilol 3.125 mg tablet 3.25 mg PO BID 08/06/20 10/02/21 History duloxetine 30 mg capsule,delayed 30 mg PO DAILY 08/06/20 10/02/21 History release guaifenesin 1,200 mg tablet, 1,200 mg PO DAILY 08/06/20 10/02/21 History extended release 12 hr (Mucinex) isosorbide mononitrate 60 mg 60 mg PO DAILY #90 tabs 08/06/20 10/02/21 Rx tablet,extended release 24 hr levothyroxine 125 mcg tablet 125 mcg PO DAILY 08/06/20 10/02/21 History (Synthroid) lisinopril 5 mg tablet 5 mg PO DAILY 08/06/20 10/02/21 History loratadine 10 mg tablet 10 mg PO DAILY 08/06/20 10/02/21 History melatonin 5 mg tablet 5 mg PO BEDTIME PRN Sleep 08/06/20 10/02/21 History rivastigmine 13.3 mg/24 hour 13.3 mg transdermal DAILY 08/06/20 10/02/21 History transdermal patch spironolactone 25 mg tablet 12.5 mg PO DAILY #60 tabs 08/06/20 10/02/21 Rx tamsulosin 0.4 mg capsule 0.4 mg PO BID 08/06/20 10/02/21 History apomorphine 15 mg sublingual film 15 mg sublingual PRN PRN Tremor(S) 10/02/21 10/02/21 History (Kynmobi) aspirin 81 mg capsule 81 mg PO DAILY 10/02/21 10/02/21 History cholecalciferol (vitamin D3) 25 25 mcg PO DAILY 10/02/21 10/02/21 History mcg (1,000 unit) capsule nitroglycerin 0.4 mg sublingual 0.4 mg sublingual Q5M PRN Angina 10/02/21 10/02/21 History tablet Allergies Allergy/AdvReac Type Severity Reaction Status Date / Time No Known Drug Allergies Allergy Verified 10/02/21 09:50 Review of Systems Review of Systems Narrative: Positive for confusion, weakness, inability to dress himself or eat, fever Negative for chills, sweats, coughing, shortness breath, chest pain, nausea, vomiting, abdominal pain, seizures, headaches, new allergies, sore throat. Exam Vital Signs (past 8 hours): - 10/02/21 13:14 10/02/21 13:48 10/02/21 15:46 Temperature 99.9 F H 98.0 F 98.7 F Pulse Rate 76 72 Respiratory Rate 22 20 Blood Pressure 174/94 H 188/88 H Pulse Oximetry 93 93 Oxygen Flow Rate 2 2 10/02/21 19:20 Temperature 97.9 F Pulse Rate 64 Respiratory Rate 18 Blood Pressure 172/88 H Pulse Oximetry 96 Oxygen Flow Rate 2 Oxygen Delivery Method Room Air Oxygen Flow Rate 2 Narrative Exam Narrative: He is obtunded and does not respond or engage to my attempts to interview and examine him. He appears to be hard of hearing. No apparent distress Pupillary exam is unable to be done Throat looks somewhat dry No lymph nodes are felt head, neck, supraclavicular area There is no thyromegaly JVD is less than 6 cm No carotid bruits are heard Heart is regular rate and rhythm without murmur Lungs are clear to auscultation bilaterally Abdomen is soft, bowel sounds positive, nontender, no organomegaly Extremities have no ankle edema Skin has no rash or jaundice. He does have some bruising. Neurological exam This is limited as the patient is not engaging or participating/ answering questions. There is no obvious lateralizing deficits Unable to test for cranial nerve function There is no tremor Objective Labs Result Diagrams: 10/02/21 09:50 10/02/21 09:50 Labs: Laboratory Results - last 24 hr 10/02/21 10/02/21 10/02/21 09:50 09:50 09:50 WBC 9.1 RBC 4.17 L Hgb 13.5 Hct 39.3 L MCV 94.3 MCH 32.3 MCHC 34.2 RDW 14.0 Plt Count 137 L Neut % (Auto) 81.8 H Lymph % (Auto) 9.4 L [place] % (Auto) 8.2 Eos % (Auto) 0.3 L Baso % (Auto) 0.3 Neut # (Auto) 7500 H Lymph # (Auto) 900 L [place] # (Auto) 700 Eos # (Auto) 0 Baso # (Auto) 0 PT INR APTT D-Dimer Sodium 138 Potassium 3.8 Chloride 109 H Carbon Dioxide 24 BUN 16 Creatinine 0.85 Estimated GFR > 60 BUN/Creatinine Ratio 18.8 Glucose 111 H Lactate 1.1 Calcium 8.4 Total Bilirubin 0.6 AST 33 ALT 7 Alkaline Phosphatase 60 Total Creatine Kinase CK-MB (CK-2) CK-MB (CK-2) Rel Index Troponin I NT-Pro-B Natriuret Pep Total Protein 6.6 Albumin 3.8 Globulin 2.8 Albumin/Globulin Ratio 1.4 Lipase 28 Procalcitonin 0.05 SARS-CoV-2 (PCR) 10/02/21 10/02/21 10/02/21 09:50 09:50 09:50 WBC RBC Hgb Hct MCV MCH MCHC RDW Plt Count Neut % (Auto) Lymph % (Auto) [place] % (Auto) Eos % (Auto) Baso % (Auto) Neut # (Auto) Lymph # (Auto) [place] # (Auto) Eos # (Auto) Baso # (Auto) PT INR APTT D-Dimer 409 H Sodium Potassium Chloride Carbon Dioxide BUN Creatinine Estimated GFR BUN/Creatinine Ratio Glucose Lactate Calcium Total Bilirubin AST ALT Alkaline Phosphatase Total Creatine Kinase 134 CK-MB (CK-2) 5.20 H CK-MB (CK-2) Rel Index 3.9 Troponin I 1.390 H* NT-Pro-B Natriuret Pep 03802 H Total Protein Albumin Globulin Albumin/Globulin Ratio Lipase Procalcitonin SARS-CoV-2 (PCR) Positive H 10/02/21 10/02/21 10/02/21 17:08 19:00 19:00 WBC RBC Hgb Hct MCV MCH MCHC RDW Plt Count Neut % (Auto) Lymph % (Auto) [place] % (Auto) Eos % (Auto) Baso % (Auto) Neut # (Auto) Lymph # (Auto) [place] # (Auto) Eos # (Auto) Baso # (Auto) PT 13.6 H INR 1.2 APTT 113 H* D D-Dimer Sodium Potassium Chloride Carbon Dioxide BUN Creatinine Estimated GFR BUN/Creatinine Ratio Glucose Lactate Calcium Total Bilirubin AST ALT Alkaline Phosphatase Total Creatine Kinase CK-MB (CK-2) CK-MB (CK-2) Rel Index Troponin I 2.900 H* NT-Pro-B Natriuret Pep Total Protein Albumin Globulin Albumin/Globulin Ratio Lipase Procalcitonin SARS-CoV-2 (PCR) Assessment & Plan Assessment & Plan narrative: This is an 81 year old male with coronary artery disease, hyperlipidemia, hypertension, hypothyroidism and Parkinson's disease who presents with 2 days of increasing mental confusion, weakness, inability to dress or feed himself and fever. He is found to be COVID positive. Altered mental status, present on admission. Active. -Likely related to acute COVID infection superimposed on already altered mental processing of advanced Parkinson's. COVID Infection, present on admission. Active. -No signs of viral pneumonia or hypoxia -Remdesivir (likely to be discontinued if doesn't develop hypoxia) -Dexamethasone IV Parkinson's disease, present on admission. Active. -This is undoubtedly a major component of his altered mental status and weakness. - continue Rytary, Rivastigmine, Amantadine NSTEMI elevated troponin, present on admission. Active. - IV heparin 48 hours per Cardiology recommendation -related to acute illness, not a cardiac catheterization candidate. -Isosorbide, Atorvastatin and Carvedilol Hypertension, present on admission. Active. -Isosorbide, Spironolactone and Carvedilol Hypothyroidism, present on admission. Chronic. -Levothyroxine Hyperlipidemia, present on admission. Chronic. -Atorvastatin Depression, present on admission. Chronic. -Duloxetine His backup decision maker is his [place] for DVT prevention Time Spent With Patient Critical Care time: I spent a total of [] minutes of critical care time on this patient's care today; this time is exclusive of procedural time. Quality VTE Deep Vein Thrombosis/Pulmonary Embolism Present on Admission: No
[2021-10-02] MEDS: AMANTADINE 100 MG CAPSULE PO (23:58)
[2021-10-02] MEDS: carvediloL 3.125 MG TABLET 3.25 MG PO (23:58)
[2021-10-02] MEDS: CARBIDOPA-LEVODOPA 25/100 TABLET 1 EACH PO (23:58)
[2021-10-03] VITALS (9 sets, daily range): BP systolic 109–194; BP diastolic 40–102; PULSE 56–67; RESP 18–22; TEMP 36.4–37; O2SAT 94–98
[2021-10-03 03:58] LABS: Add Manual Diff / Slide Review NO; Basophils Absolute Auto 0 /uL (0-100); Basophils Percent Auto 0.2 % (0-2); Eosinophils Absolute Auto 0 /uL (0-450); Hematocrit 40.6 % (41-53); Hemoglobin 13.8 g/dL (13.5-17.5); Lymphocytes Absolute Auto 900 /uL (1100-4500); Lymphocytes Percent Auto 10.8 % (25-40); Mean Corpuscular Hemoglobin 31.7 PG (26-34); Mean Corpuscular Volume 93.3 fL (80-100); Monocytes Absolute Auto 600 /uL (0-900); Monocytes Percent Auto 7.6 % (3-14); Neutrophils Absolute Auto 6700 /uL (1500-7000); Neutrophils Percent Auto 81.4 % (50-75); Platelet Count 148 X10^3/uL (150-400); Red Blood Cell Count 4.35 X10^6/uL (4.5-5.9); White Blood Cell Count 8.2 X10^3/uL (4.5-11.0)
[2021-10-03 03:59] LABS: PTT Partial Thromboplastin Tim 81 SECONDS (26.4-36.2)
[2021-10-03 04:01] LABS: BUN Creatinine Ratio 22.2 (6-22); Blood Urea Nitrogen 16 mg/dL (9-20); Carbon Dioxide 23 mmol/L (22-32); Chloride 110 mmol/L (98-107); Estimated Glomerular Filt Rate > 60 mL/min (>60); Glucose 131 mg/dL (80-110); HEMOLYSIS < 15 (0-50); Potassium 3.9 mmol/L (3.4-5.1); Sodium 136 mmol/L (137-145)
[2021-10-03] MEDS: VANCOMYCIN 1,000 MG/200 ML PIGGYBACK 200 MG IV ×2 (04:01→16:08)
[2021-10-03 04:43] LABS: TSH w/ Reflex to FT4 < 0.02 uIU/mL (0.47-4.68)
[2021-10-03 05:09] LABS: Free T4, Direct Thyroxine 1.35 ng/dL (0.78-2.19)
[2021-10-03] MEDS: CEFEPIME 2 GM in SODIUM CHLORIDE 0.9% 100 ML IV ×3 (07:34→21:24)
[2021-10-03] MEDS: DEXAMETHASONE 10 MG/ML VIAL 6 MG PO (08:43)
[2021-10-03] MEDS: ISOSORBIDE MONONITRATE ER 30 MG TABLET 60 MG PO (08:44)
[2021-10-03] MEDS: TAMSULOSIN 0.4 MG CAPSULE PO ×2 (08:44→21:22)
[2021-10-03] MEDS: LORATADINE 10 MG TABLET PO (08:44)
[2021-10-03] MEDS: carvediloL 3.125 MG TABLET 3.25 MG PO ×2 (08:44→21:21)
[2021-10-03] MEDS: SPIRONOLACTONE 25 MG TABLET 12.5 MG PO (08:44)
[2021-10-03] MEDS: DULOXETINE 30 MG CAPSULE PO (08:44)
[2021-10-03] MEDS: guaiFENesin ER 600 MG TAB 1200 MG PO (08:45)
[2021-10-03] MEDS: CARBIDOPA-LEVODOPA ER 50/200 TABLET 1 EACH PO (08:45)
[2021-10-03] MEDS: ASPIRIN EC 81 MG TABLET PO (08:45)
[2021-10-03] MEDS: AMANTADINE 100 MG CAPSULE PO ×2 (08:45→21:22)
[2021-10-03] MEDS: lisinopriL 5 MG TABLET PO (08:45)
[2021-10-03] MEDS: ATORVASTATIN 20 MG TABLET 40 MG PO (08:45)
[2021-10-03] MEDS: LEVOTHYROXINE 125 MCG TABLET PO (08:46)
[2021-10-03] MEDS: CHOLECALCIFEROL (VITAMIN D3) 1,000 UNIT TABLET 1000 UNIT PO (08:46)
--- NOTE | 2021-10-03 09:25 | DI.ECHO.S_ITS ---
[facility] +---------+ [facility] +---------+ : : [address] : : : : [id number] : : : : Phone: [phone]---------+ Echocardiogram Report + + :Name: JULISA GOLDMAN Study Date: 10/03/2021 Height: 70 in : :[facility] ReadingLocation: Weight: 164 lb : : Gender: Male BSA: 1.9 m2 : :: 1940 Age: 81 yrs BP: 194/102 mmHg: :Reason For Study: NSTEMI : :Ordering Physician: YUSUF, : :CAITLIN RIZO Performed By: Rick Dotson : :Referring: CAITLIN GOLDBERG : + + Interpretation Summary 1) Normal left ventricular size with severely reduced systolic function (EF 25-30%). 2) The inferior wall and the inferolateral wall are severely hypokinetic to akinetic. Rest of the LV is moderately hypokinetic. 3) The right ventricle is normal in size and function. 4) Severe left atrial enlargement. 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 There is trace aortic regurgitation. 6) Hypertension present during the study (BP 194/102mmHg). 7) Compared to the Echo done 07/03/2020, no significant change. Procedure: A two-dimensional transthoracic echocardiogram with color flow and Doppler was performed. The study quality was technically adequate. Comparison is made with the echocardiogram of 07/03/2020. Left Ventricle: The left ventricle is normal in size. There is mild concentric left ventricular hypertrophy. Left ventricular systolic function is severely reduced. The ejection fraction is estimated to be 25-30%. The inferior wall and the inferolateral wall are severely hypokinetic to akinetic. Rest of the LV is moderately hypokinetic. Diastolic parameters suggest a pseudonormalization pattern, consistent with probable elevated filling pressures. Right Ventricle: The right ventricle is normal in size and function. Atria: The left atrium is severely dilated. Right atrial size is normal. Mitral Valve: There is mild mitral annular calcification. There is mild mitral regurgitation. 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 There is probable normal prosthetic aortic valve function. There is trace aortic regurgitation. Tricuspid Valve: The tricuspid valve is normal in structure and function. No tricuspid regurgitation. Pulmonary artery pressures cannot be estimated because of the lack of a measurable TR jet velocity. Pulmonic Valve: The pulmonic valve is not well seen, but is grossly normal. There is no pulmonic valvular regurgitation. Great Vessels: The aortic root is not well visualized. The ascending aorta could not be visualized. The inferior vena cava was not visualized. Pericardium/ Pleura There is no pericardial effusion. There is no pleural effusion. MMode/2D Measurements & Calculations LVIDd: 5.6 cm LA A2 area: 22.3 cm2 LVIDs: 4.9 cm LA A4 area: 26.0 cm2 FS: 12.9 % LA length (vol): 5.9 cm IVSd: 1.3 cm LA vol: 84.0 ml LVPWd: 1.2 cm LA vol index: 43.8 ml/m2 LV jolly. diameter/BSA (cm/m^2): 2.9 LV sys. diameter/BSA (cm/m^2): 2.6 RA long axis: 5.4 cm TAPSE: 2.2 cm RA area: 16.5 cm2 RA vol: 42.7 ml RA : 22.3 ml/m2 Doppler Measurements & Calculations Ao V2 max: 162.9 cm/sec LVOT Max Zaheer: 76.0 cm/sec Ao V2 mean: 115.3 cm/sec LV V1 max P.3 mmHg Ao max P.6 mmHg LV V1 VTI: 14.2 cm Ao mean P.9 mmHg sev ratio: 0.43 Ao V2 VTI: 32.9 cm MV E max zaheer: 68.1 cm/sec MV A max zaheer: 43.9 cm/sec MV E/A: 1.6 Med Peak E' Zaheer: 3.2 cm/sec E/E' med: 21.4 Lat Peak E' Zaheer: 6.2 cm/sec E/E' lat: 10.9 E/e' average: 16.1 MV dec time: 0.26 sec Reading Physician:01:01 PM
[2021-10-03] MEDS: REMDESIVIR 100 MG in SODIUM CHLORIDE 0.9% 230 ML 250 MG IV (09:37)
--- NOTE | 2021-10-03 11:45 | CM.DANOTE ---
DCP Assessment: Payor: Medicare PCP: MD Elizabeth Pt is a 81 y.o. M who has a history of Parkinson's and presented to the ED with a cough and decreasing mental status. Pt presented with a fever but was very lethargic. Pt was swabbed for COVID and tested positive. Pt had elevated troponins and possible sepsis. Pt put on heparin drip per frame stylist. Pt admitted to the inpatient unit with COVID -19 and NSTEMI. Admitted for further evaluation and management of symptoms. DCP spoke with pt , Toni, this morning to discuss discharge needs. DCP introduced herself and role. Pt states that they live in a 1 story house in [place]. Toni states that she is the pt's main caregiver and that he does have a private caregiver that comes once a week to assist with showers. Toni states that pt uses a walker for mobility and that she helps him with getting dressed and his ADL's. Toni states that pt can feed himself. Toni states that she is his main source of transportation. Toni states that they have kids that live in the area and she would call them if she needed help with taking care of the pt if needed. DCP explained the role of Home Health and Toni verbalized understanding but declines at this time. DCP will continue to follow and coordinate with the team as the pt progresses to determine the need for home health. Instructed Toni to contact me with any other questions that might arise. Toni wanted to know what medication the pt was given for COVID. DCP verbalized that the pt is receiving Remdesivir. Toni verbalized understanding. P: Once pt is deemed medically stable, pt to discharge home via spouse POV. R/O home health. Sue Rod RN/JEMAL Discharge Planning/Care Management CM Discharge Assessment Start: 10/03/21 11:43 Freq: Status: Active Protocol: Document 10/03/21 11:44 ZULEMA (Rec: 10/03/21 11:45 ZULEMA [id number]) Discharge Planning Assessment Assigned Tractor Trailer Truck Driver Sue Rod RN/JEMAL Advance Directives? Yes Advance Directives on File No History Provided By Family Member,Medical Record Prior Living Arrangements House Household Members spouse Type of transporation used prior to Relies on Others admit Independent with ADL's No: helps Needs Assistance With Bathing,Grooming,Meal Prep, Home Chores / Shopping Caregiver for Another No DME Already Rented / Owned FWW / Walker Discharge Plan Home Referrals Initiated None needed Additional Comment At this time. Might need Home Health Whiteboard Updated in Patient Room with No name and ext. # of Tractor Trailer Truck Driver Comment Unable to enter room Review Status In Process Please Provide Date Initial DC 10/03/21 Assessment Was Performed Next Review Type Continued Stay Review
[2021-10-03] MEDS: CARBIDOPA LEVODOPA 1 EACH PO ×3 (14:57→21:24)
[2021-10-03 16:18] LABS: Magnesium 1.7 mg/dL (1.6-2.3)
--- NOTE | 2021-10-03 17:10 | PC.NURSE ---
Pt is AxOx3-4, cooperative and talkative. VSS, pt denies pain. Continued droplet precaution. Pt is still on IV ABO and contin Heparin drip. Pt is eating well and drinking well. Pt is incontinent x2. Today, pt has L BM. Pt was awake and watching tv all day. Pt is is called and dropped off his Parkinson's med. No other changes. Continue monitor.
--- NOTE | 2021-10-03 18:08 | PM.PN.1 ---
Subjective Subjective Date Patient Seen: 10/03/21 Interval history: Patient feels weak today and quite fatigued, but much improved. He denies chest pain, shortness of breath, abdominal pain, nausea, vomiting. Exam Vital Signs (past 8 hours): - 10/03/21 14:00 Temperature 97.8 F Pulse Rate 61 Respiratory Rate 22 Blood Pressure 109/40 L Pulse Oximetry 96 Oxygen Flow Rate 2 Oxygen Delivery Method Nasal Cannula Oxygen Flow Rate 2 Narrative Exam Narrative: General:? Patient is well developed and well nourished, in no distress at this time. HEENT:? Normocephalic, atraumatic, extraocular muscles intact, oral pharynx is clear and mucous membranes are moist. Neck: supple and symmetric, trachea is midline, no cervical adenopathy. Negative for JVD Chest:? Normal AP diameter and contour without kyphoscoliosis, no tachypnea, equal chest rise bilaterally. Lungs:? CTA b/l no wheezing rhonchi or rales. Cardio:?RRR no m/r/g. Abdomen: S NT ND. Musculoskeletal:? Muscle strength and tone are equal within normal limits, no deformity. Extremities: No edema or joint effusions. No cyanosis or clubbing. Skin:? Pale,? Warm to touch,dry and intact without rashes, ulcerations or petechiae.? Neuro:? Alert, mildly confused, hard of hearing. Psych:? Patient has a well-kept appearance, appropriate affect, mental status attitude thought context and judgment are appropriate for age. Objective Labs Result Diagrams: 10/03/21 03:34 10/03/21 03:34 Labs: Laboratory Results - last 24 hr 10/02/21 10/02/21 10/02/21 19:00 19:00 22:02 WBC RBC Hgb Hct MCV MCH MCHC RDW Plt Count Neut % (Auto) Lymph % (Auto) Chaves % (Auto) Eos % (Auto) Baso % (Auto) Neut # (Auto) Lymph # (Auto) Chaves # (Auto) Eos # (Auto) Baso # (Auto) PT 13.6 H INR 1.2 APTT 113 H* D Sodium Potassium Chloride Carbon Dioxide BUN Creatinine Estimated GFR BUN/Creatinine Ratio Glucose Calcium Magnesium Troponin I 2.950 H* TSH Free T4 10/03/21 10/03/21 10/03/21 03:34 03:34 03:34 WBC 8.2 RBC 4.35 L Hgb 13.8 Hct 40.6 L MCV 93.3 MCH 31.7 MCHC 34.0 RDW 14.0 Plt Count 148 L Neut % (Auto) 81.4 H Lymph % (Auto) 10.8 L Chaves % (Auto) 7.6 Eos % (Auto) 0.0 L Baso % (Auto) 0.2 Neut # (Auto) 6700 Lymph # (Auto) 900 L Chaves # (Auto) 600 Eos # (Auto) 0 Baso # (Auto) 0 PT INR APTT 81 H* D Sodium Potassium Chloride Carbon Dioxide BUN Creatinine Estimated GFR BUN/Creatinine Ratio Glucose Calcium Magnesium Troponin I 3.170 H* TSH Free T4 10/03/21 10/03/21 10/03/21 03:34 03:34 15:55 WBC RBC Hgb Hct MCV MCH MCHC RDW Plt Count Neut % (Auto) Lymph % (Auto) Chaves % (Auto) Eos % (Auto) Baso % (Auto) Neut # (Auto) Lymph # (Auto) Chaves # (Auto) Eos # (Auto) Baso # (Auto) PT INR APTT Sodium 136 L Potassium 3.9 Chloride 110 H Carbon Dioxide 23 BUN 16 Creatinine 0.72 Estimated GFR > 60 BUN/Creatinine Ratio 22.2 H Glucose 131 H Calcium 8.0 L Magnesium 1.7 Troponin I TSH < 0.02 L Free T4 1.35 PFSH Medical History Coronary artery disease Hyperlipidemia Hypertension Hypothyroid Parkinson's disease Surgical History No pertinent past surgical history Stented coronary artery Social History household members: spouse Smoking Status: Never smoker alcohol intake: current Assessment & Plan Assessment & Plan narrative: This is an 81 year old male with coronary artery disease, hyperlipidemia, hypertension, hypothyroidism and Parkinson's disease who presents with 2 days of increasing mental confusion, weakness, inability to dress or feed himself and fever. Altered mental status, probable metabolic encephalopathy present on admission. Active. -Likely related to acute COVID infection superimposed on already altered mental processing of advanced Parkinson's. -improved today COVID Infection, possible pneumonia, present on admission. Active. -patient requires minimal supplemental oxygen at this time -continue remdesevir and decardon, stop if no longer requiring supplemental oxygen. Parkinson's disease, present on admission. Active. -This is undoubtedly a major component of his altered mental status and weakness. - continue Rytary, Rivastigmine, Amantadine NSTEMI elevated troponin, present on admission. Active. - IV heparin 48 hours per Cardiology recommendation -related to acute illness, not a cardiac catheterization candidate. -Isosorbide, Atorvastatin and Carvedilol Chronic systolic heart failure - EF 25-30% without significant change to prior performed today. - no current signs of volume overlaod - continue home medications including beta mitra and lisinopril Hypertension, present on admission. Active. -Isosorbide, Spironolactone and Carvedilol Hypothyroidism, present on admission. Chronic. -Levothyroxine Hyperlipidemia, present on admission. Chronic. -Atorvastatin Depression, present on admission. Chronic. -Duloxetine His backup decision maker is his Deedee for DVT prevention Time Spent With Patient Critical Care time: I spent a total of [] minutes of critical care time on this patient's care today; this time is exclusive of procedural time. Quality VTE Deep Vein Thrombosis/Pulmonary Embolism Present on Admission: No
[2021-10-03] MEDS: HEPARIN DRIP 25,000 UNIT/500 ML IV.SOLN 17.091 UNIT IV (21:35)
[2021-10-04] VITALS (10 sets, daily range): BP systolic 138–185; BP diastolic 64–82; PULSE 50–74; RESP 18–24; TEMP 36.3–36.8; O2SAT 94–97
[2021-10-04] MEDS: VANCOMYCIN 1,000 MG/200 ML PIGGYBACK 200 MG IV (03:31)
[2021-10-04 03:47] LABS: Add Manual Diff / Slide Review NO; Basophils Absolute Auto 0 /uL (0-100); Eosinophils Absolute Auto 0 /uL (0-450); Hematocrit 37.4 % (41-53); Hemoglobin 12.8 g/dL (13.5-17.5); Lymphocytes Absolute Auto 1100 /uL (1100-4500); Lymphocytes Percent Auto 16.5 % (25-40); Mean Corpuscular HGB Conc 34.3 % (30-36); Mean Corpuscular Hemoglobin 31.8 PG (26-34); Mean Corpuscular Volume 92.7 fL (80-100); Monocytes Absolute Auto 600 /uL (0-900); Monocytes Percent Auto 9.6 % (3-14); Neutrophils Absolute Auto 4800 /uL (1500-7000); Neutrophils Percent Auto 73.9 % (50-75); Platelet Count 166 X10^3/uL (150-400); Red Blood Cell Count 4.04 X10^6/uL (4.5-5.9); Red Cell Distribution Width 13.9 % (11.6-14.8); White Blood Cell Count 6.5 X10^3/uL (4.5-11.0)
[2021-10-04 03:54] LABS: PTT Partial Thromboplastin Tim 67 SECONDS (26.4-36.2)
[2021-10-04 03:56] LABS: BUN Creatinine Ratio 35.1 (6-22); Blood Urea Nitrogen 26 mg/dL (9-20); Carbon Dioxide 21 mmol/L (22-32); Chloride 109 mmol/L (98-107); Estimated Glomerular Filt Rate > 60 mL/min (>60); Glucose 129 mg/dL (80-110); HEMOLYSIS < 15 (0-50); Potassium 3.9 mmol/L (3.4-5.1); Sodium 138 mmol/L (137-145)
[2021-10-04 04:07] LABS: Vancomycin Trough 11.5 ug/mL (10-20)
[2021-10-04] MEDS: CEFEPIME 2 GM in SODIUM CHLORIDE 0.9% 100 ML IV ×3 (06:12→21:22)
[2021-10-04 06:46] LABS: Vancomycin Peak 24.7 ug/mL (20-40)
[2021-10-04] MEDS: RIVASTIGMINE 13.3 EACH TOP (08:01)
[2021-10-04] MEDS: CARBIDOPA LEVODOPA 1 EACH PO ×4 (08:01→20:22)
[2021-10-04] MEDS: ISOSORBIDE MONONITRATE ER 30 MG TABLET 60 MG PO (08:02)
[2021-10-04] MEDS: DEXAMETHASONE 10 MG/ML VIAL 6 MG PO (08:02)
[2021-10-04] MEDS: DULOXETINE 30 MG CAPSULE PO (08:02)
[2021-10-04] MEDS: LORATADINE 10 MG TABLET PO (08:02)
[2021-10-04] MEDS: lisinopriL 5 MG TABLET PO (08:03)
[2021-10-04] MEDS: LEVOTHYROXINE 125 MCG TABLET PO (08:04)
[2021-10-04] MEDS: CHOLECALCIFEROL (VITAMIN D3) 1,000 UNIT TABLET 1000 UNIT PO (08:04)
[2021-10-04] MEDS: ATORVASTATIN 20 MG TABLET 40 MG PO (08:04)
[2021-10-04] MEDS: SPIRONOLACTONE 25 MG TABLET 12.5 MG PO (08:04)
[2021-10-04] MEDS: TAMSULOSIN 0.4 MG CAPSULE PO ×2 (08:04→20:22)
[2021-10-04] MEDS: ASPIRIN EC 81 MG TABLET PO (08:04)
[2021-10-04] MEDS: carvediloL 3.125 MG TABLET 3.25 MG PO ×2 (08:05→20:21)
[2021-10-04] MEDS: guaiFENesin ER 600 MG TAB 1200 MG PO (08:06)
[2021-10-04] MEDS: AMANTADINE 100 MG CAPSULE PO ×2 (08:16→20:21)
[2021-10-04] MEDS: MAGNESIUM SULFATE 2 GM/50 ML PIGGYBACK IV (08:56)
--- NOTE | 2021-10-04 10:08 | PT-IP ANOTE ---
Pt remains on heparin drip until at least noon today. Per discussion with hospitalist physician at AM rounds, will hold therapy evaluations until Tuesday.
--- NOTE | 2021-10-04 16:30 | PM.PN.1 ---
Subjective Subjective Date Patient Seen: 10/04/21 Interval history: Patient feels weak still but much improved. Some discomfort in his back and is anxious to get out of bed. Heparin infusion to stop this afternoon. He denies chest pain, shortness of breath, abdominal pain, nausea, vomiting. Exam Vital Signs (past 8 hours): - 10/04/21 11:53 10/04/21 16:09 Temperature 97.9 F 98.3 F Pulse Rate 50 L 52 L Respiratory Rate 22 Blood Pressure 138/64 157/64 H Pulse Oximetry 94 94 Oxygen Flow Rate 0 0 Oxygen Delivery Method Room Air Oxygen Flow Rate 0 Narrative Exam Narrative: General:? Patient is well developed and well nourished, in no distress at this time. HEENT:? Normocephalic, atraumatic, extraocular muscles intact, oral pharynx is clear and mucous membranes are moist. Neck: supple and symmetric, trachea is midline, no cervical adenopathy. Negative for JVD Chest:? Normal AP diameter and contour without kyphoscoliosis, no tachypnea, equal chest rise bilaterally. Lungs:? CTA b/l no wheezing rhonchi or rales. Cardio:?RRR no m/r/g. Abdomen: S NT ND. Musculoskeletal:? Muscle strength and tone are equal within normal limits, no deformity. Extremities: No edema or joint effusions. No cyanosis or clubbing. Skin:? Pale,? Warm to touch,dry and intact without rashes, ulcerations or petechiae.? Neuro:? Alert, mildly confused, hard of hearing. Psych:? Patient has a well-kept appearance, appropriate affect, mental status attitude thought context and judgment are appropriate for age. Objective Labs Result Diagrams: 10/04/21 03:25 10/04/21 03:25 Labs: Laboratory Results - last 24 hr 10/04/21 10/04/21 10/04/21 03:25 03:25 03:25 WBC 6.5 RBC 4.04 L Hgb 12.8 L Hct 37.4 L MCV 92.7 MCH 31.8 MCHC 34.3 RDW 13.9 Plt Count 166 Neut % (Auto) 73.9 Lymph % (Auto) 16.5 L Pershing % (Auto) 9.6 Eos % (Auto) 0.0 L Baso % (Auto) 0.0 Neut # (Auto) 4800 Lymph # (Auto) 1100 Pershing # (Auto) 600 Eos # (Auto) 0 Baso # (Auto) 0 APTT Sodium 138 Potassium 3.9 Chloride 109 H Carbon Dioxide 21 L BUN 26 H Creatinine 0.74 Estimated GFR > 60 BUN/Creatinine Ratio 35.1 H Glucose 129 H Calcium 8.0 L Troponin I Vancomycin Peak Vancomycin Trough 11.5 10/04/21 10/04/21 10/04/21 03:25 03:25 06:03 WBC RBC Hgb Hct MCV MCH MCHC RDW Plt Count Neut % (Auto) Lymph % (Auto) Pershing % (Auto) Eos % (Auto) Baso % (Auto) Neut # (Auto) Lymph # (Auto) Pershing # (Auto) Eos # (Auto) Baso # (Auto) APTT 67 H D Sodium Potassium Chloride Carbon Dioxide BUN Creatinine Estimated GFR BUN/Creatinine Ratio Glucose Calcium Troponin I 1.970 H* Vancomycin Peak 24.7 Vancomycin Trough PFSH Medical History Coronary artery disease Hyperlipidemia Hypertension Hypothyroid Parkinson's disease Surgical History No pertinent past surgical history Stented coronary artery Social History household members: spouse Smoking Status: Never smoker alcohol intake: current Assessment & Plan Assessment & Plan narrative: This is an 81 year old male with coronary artery disease, hyperlipidemia, hypertension, hypothyroidism and Parkinson's disease who presents with 2 days of increasing mental confusion, weakness, inability to dress or feed himself and fever. Admitted with NSTEMI and COVID infection. Metabolic encephalopathy present on admission. Active. -Likely related to acute COVID infection superimposed on already altered mental processing of advanced Parkinson's. -improved today COVID Infection, possible pneumonia, present on admission. Active. -no longer on supplemental oxygen. -continued remdesevir and decardon until no longer requiring oxygen. -CT without lung consolidation. Acute respiratory failure with hypoxia - unclear etiology, CT chest without definitive infiltrate. May be dysregulated response in setting of COVID inflammation. - other possibilities include possible acute on chronic heart failure, though volume overload was not appreciated and patient improved without diuretic therpies. Parkinson's disease, present on admission. Active. -This is undoubtedly a major component of his altered mental status and weakness. - continue Rytary, Rivastigmine, Amantadine NSTEMI elevated troponin, present on admission. Active. - IV heparin 48 hours per Cardiology recommendation, to stop this afternoon -continue asa and statin therapy. -related to acute illness, not a cardiac catheterization candidate. -Isosorbide, Atorvastatin and Carvedilol Chronic systolic heart failure, less likely acute portion as discussed above. - EF 25-30% without significant change to prior performed today. - no current signs of volume overload as discussed above. - continue home medications including beta mitra and lisinopril Hypertension, present on admission. Active. -Isosorbide, Spironolactone and Carvedilol Hypothyroidism, present on admission. Chronic. -Levothyroxine Hyperlipidemia, present on admission. Chronic. -Atorvastatin Depression, present on admission. Chronic. -Duloxetine His backup decision maker is his Deedee for DVT prevention Time Spent With Patient Critical Care time: I spent a total of [] minutes of critical care time on this patient's care today; this time is exclusive of procedural time. Quality VTE Deep Vein Thrombosis/Pulmonary Embolism Present on Admission: No
--- NOTE | 2021-10-04 16:39 | PC.NURSE ---
Pt is AxOx4, pleasant and cooperative. VSS, pt denies pain. Pt is now on RA and Sats mid 90s. Pt's Troponin is trending down-1.970. is aware. Continued Heparin drip at 13 ml/hr. Otherwise, pt is doing well. Continued droplet precaution.
[2021-10-04] MEDS: SODIUM CHLORIDE 0.9% FLUSH 10 ML IV (20:46)
[2021-10-05] VITALS (9 sets, daily range): BP systolic 142–188; BP diastolic 57–81; PULSE 43–54; RESP 14–17; TEMP 36.3–36.8; O2SAT 94–95
[2021-10-05 05:32] LABS: Add Manual Diff / Slide Review NO; Basophils Absolute Auto 0 /uL (0-100); Basophils Percent Auto 0.1 % (0-2); Eosinophils Absolute Auto 0 /uL (0-450); Hematocrit 36.5 % (41-53); Hemoglobin 12.6 g/dL (13.5-17.5); Lymphocytes Absolute Auto 1100 /uL (1100-4500); Mean Corpuscular HGB Conc 34.6 % (30-36); Mean Corpuscular Hemoglobin 31.9 PG (26-34); Monocytes Absolute Auto 700 /uL (0-900); Monocytes Percent Auto 10.6 % (3-14); Neutrophils Absolute Auto 5000 /uL (1500-7000); Neutrophils Percent Auto 73.3 % (50-75); Platelet Count 170 X10^3/uL (150-400); Red Blood Cell Count 3.96 X10^6/uL (4.5-5.9); White Blood Cell Count 6.8 X10^3/uL (4.5-11.0)
[2021-10-05 05:39] LABS: PTT Partial Thromboplastin Tim 30 SECONDS (26.4-36.2)
[2021-10-05 05:40] LABS: BUN Creatinine Ratio 38.4 (6-22); Blood Urea Nitrogen 28 mg/dL (9-20); Calcium 7.9 mg/dL (8.4-10.2); Carbon Dioxide 24 mmol/L (22-32); Chloride 109 mmol/L (98-107); Estimated Glomerular Filt Rate > 60 mL/min (>60); Glucose 127 mg/dL (80-110); HEMOLYSIS < 15 (0-50); Potassium 3.8 mmol/L (3.4-5.1); Sodium 136 mmol/L (137-145)
[2021-10-05] MEDS: CEFEPIME 2 GM in SODIUM CHLORIDE 0.9% 100 ML IV ×3 (06:21→23:26)
[2021-10-05] MEDS: LORATADINE 10 MG TABLET PO (09:57)
[2021-10-05] MEDS: AMANTADINE 100 MG CAPSULE PO ×2 (09:57→20:30)
[2021-10-05] MEDS: DULOXETINE 30 MG CAPSULE PO (09:57)
[2021-10-05] MEDS: ISOSORBIDE MONONITRATE ER 30 MG TABLET 60 MG PO (09:57)
[2021-10-05] MEDS: SPIRONOLACTONE 25 MG TABLET 12.5 MG PO (09:58)
[2021-10-05] MEDS: ATORVASTATIN 20 MG TABLET 40 MG PO (09:58)
[2021-10-05] MEDS: guaiFENesin ER 600 MG TAB 1200 MG PO (09:58)
[2021-10-05] MEDS: lisinopriL 5 MG TABLET PO (09:59)
[2021-10-05] MEDS: CHOLECALCIFEROL (VITAMIN D3) 1,000 UNIT TABLET 1000 UNIT PO (09:59)
[2021-10-05] MEDS: ASPIRIN EC 81 MG TABLET PO (09:59)
[2021-10-05] MEDS: LEVOTHYROXINE 125 MCG TABLET PO (09:59)
[2021-10-05] MEDS: TAMSULOSIN 0.4 MG CAPSULE PO ×2 (09:59→20:30)
[2021-10-05] MEDS: SODIUM CHLORIDE 0.9% FLUSH 10 ML IV ×2 (09:59→23:26)
[2021-10-05] MEDS: RIVASTIGMINE 13.3 EACH TOP (10:00)
[2021-10-05] MEDS: CARBIDOPA LEVODOPA 1 EACH PO ×4 (10:00→20:32)
--- NOTE | 2021-10-05 11:00 | PT.IIE ---
Current Diagnoses COVID-19 (10/02/21) Surgical History (Last Reviewed 10/02/21 @ 10:57 by Nicolasa Tatum DO) No pertinent past surgical history Stented coronary artery Medical History (Last Reviewed 10/02/21 @ 10:57 by Nicolasa Tatum DO) Coronary artery disease Hyperlipidemia Hypertension Hypothyroid Parkinson's disease Physical Therapy Inpatient Evaluation/Re-Eval M1 PT/OT-IP Prior Functional Status Start: 10/04/21 09:03 Freq: NEEDED Status: Active Protocol: Document 10/05/21 12:16 CGR (Rec: 10/05/21 12:32 CGR [id number]) Medical Review Prior Functional Status Medical History Reviewed Yes Communication Pt is an effective verbal communicator. Mobility and Gait Pt was able to mobilize short distances in the home with a 4ww. Pt needed assist getting in and out of bed. Activities of Daily Living and IADL's Pt needed assist with dressing , bathing, managing medications, but is able to perform toileting by himself. They have an aide that comes in once a week that helps with showering and other pt's Toni assists. Social History Household Members spouse Living Arrangements House Number of Floors (Floors) One Floor Number of Stairs To Enter/Railing? no steps. Home Environment Standard Height Toilet,Walk in Shower,Built-In Shower Seat Home Equipment Four Wheel Walker,Bedside Commode Additional Social History Comment PT has an adjustable bed with a railing and an up walker. M1 PT/OT-IP Prior Functional Status Start: 10/05/21 12:16 Freq: NEEDED Status: Active Protocol: Document 10/05/21 12:16 CGR (Rec: 10/05/21 12:32 CGR [id number]) Medical Review Prior Functional Status Medical History Reviewed Yes Communication Pt is an effective verbal communicator. Mobility and Gait Pt was able to mobilize short distances in the home with a 4ww. Pt needed assist getting in and out of bed. Activities of Daily Living and IADL's Pt needed assist with dressing , bathing, managing medications, but is able to perform toileting by himself. They have an aide that comes in once a week that helps with showering and other pt's Toni assists. Social History Household Members spouse Living Arrangements House Number of Floors (Floors) One Floor Number of Stairs To Enter/Railing? no steps. Home Environment Standard Height Toilet,Walk in Shower,Built-In Shower Seat Home Equipment Four Wheel Walker,Bedside Commode Additional Social History Comment PT has an adjustable bed with a railing and an up walker. M2 PT-IP Current Condition Start: 10/04/21 09:03 Freq: NEEDED Status: Active Protocol: Document 10/05/21 11:00 AW (Rec: 10/05/21 13:40 AW [id number]) Physical Therapy Current Condition Current Condition Evaluation Date 10/05/21 Treatment Diagnosis COVID (+), encephalopathy, weakness, PD, impaired mobility and gait Onset Date 10/02/21 M3 PT-IP Subjective Start: 10/04/21 09:03 Freq: NEEDED Status: Active Protocol: Document 10/05/21 11:00 AW (Rec: 10/05/21 13:40 AW [id number]) Subjective Physical Therapy Visit Type Type Initial Evaluation Visit Start Time 10:35 Visit Stop Time 11:00 Total Visit Minutes 25 Notes Co-eval with OT due to pt's complex mobility needs Physical Therapy Visit Comments Patient Comments Pt is willing to participate with PT. M4 PT-IP Mobility and Gait Start: 10/04/21 09:03 Freq: NEEDED Status: Active Protocol: Document 10/05/21 11:00 AW (Rec: 10/05/21 13:40 AW [id number]) PT-Bed Mobility Assessment Sit to Supine Sit to Supine Moderate Assistance,Maximum Assistance,2 Person Assistance ,Head of Bed Elevated,Bedrails Scooting Scooting to Edge of Bed Maximum Assistance PT-Transfer Assessment Sit to and From Stand Sit to and from Stand Moderate Assistance,Maximum Assistance,2 Person Assistance Equipment Transfer Assistive Device Gait Belt,Front Wheeled Walker Transfers Transfer Destination Chair Transfer Technique Stand Step Pivot Transfer Ability Level of Assist Moderate Assistance,Maximum Assistance,2 Person Assistance Comments Mobility Comments Pt was lying in bed as PT and OT arrived. He stated his usually helps him out of bed. With HOB elevated, pt needed mod/max A x 2 to sit up on the right side of the bed. Mod/ max A x 2 for sit to stand and transfer to chair set up ~4 feet away. Pt needed assist with weight shifting and walker management. Gait was notable for rigid trunk, sliding feet, minimal LE elevation, and feet not passing one another in terms of step length. Gait was also affected by bilateral knee flexion contracture (left more affected than right). Pt was positioned on the chair and left with OT for further evaluation. Gait Assessment Gait Gait Assistance Required: Moderate Assistance,Maximum Assistance,2 Person Assist Distance (Feet) 4 Assistive Devices Assistive Device Gait Belt,Front Wheeled Walker Gait Deviations General Gait Pattern Decreased Stride Length, Decreased Feet Clearance, Festinating,Flexed Trunk Factors Limiting Gait Function Factors Limiting Gait Function Decreased Activity Tolerance, Decreased Sensation,Decreased Strength,Difficulty Following Directions,Limited Range of Motion,Poor Balance,Poor Safety Awareness Comments Gait Comments See mobility comments for details. Stair Climbing Assessment Comments Stair Climbing Comments No stairs in home environment. PT-Balance Assessment Sitting Balance and Reactions Static Sitting Balance Ability Fair Dynamic Sitting Balance Ability Poor Standing Balance and Reactions Static Standing Balance Ability Poor Dynamic Standing Balance Ability Poor Comments Other Balance Tests/Deviations/Treatment Pt requires max cues for : anterior weight shift in stance and gait. M5 PT-IP Objective Assessments Start: 10/04/21 09:03 Freq: NEEDED Status: Active Protocol: Document 10/05/21 11:00 AW (Rec: 10/05/21 13:40 AW [id number]) Orientation Orientation/Cognition Level of Alertness Confusional State Orientation Name,Month,Year,Place, Situation Safety Awareness Decreased Safety Awareness Gross Range of Motion Lower Extremity ROM Assessment Bilaterally Impaired Impairments Pt lacks terminal knee extension RLE. LLE is more severely affected with flexion contracture. Strength Lower Extremity Strength Assessment Bilaterally Impaired Hip 4-/5 Knee 3/5 L; 3+/5 R Ankle 4/5 Sensation Assessment Sensation Gross Sensation WNL Muscle Tone Muscle Tone WNL No Comments Muscle Tone Comments Rigid trunk affects gait stability. 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 M6 PT-IP Treatment Start: 10/04/21 09:03 Freq: NEEDED Status: Active Protocol: Document 10/05/21 11:00 AW (Rec: 10/05/21 13:40 AW [id number]) Physical Therapy Treatment Education Education Provided Safety M7 PT-IP Assessment and Plan Start: 10/04/21 09:03 Freq: NEEDED Status: Active Protocol: Document 10/05/21 11:00 AW (Rec: 08/08/22 13:40 AW [id number]) PT Summary Assessment and Plan Potential Rehabilitation Potential Good Status of Condition at Evaluation Evolving Summary Impairments ROM,Strength,Balance,Sensation ,Cognition,Bed Mobility, Transfers,Gait,Activity Tolerance Assessment Summary Valdez is an 81 yo man with Parkinson's disease who is admitted with acute COVID infection and NSTEMI. His is typically able to assist him at home with ADLs and mobility using 4WW or UP walker. On assessment today, pt requires 2-person mod to max assist with bed mobility and transfers. PT recommends SNF rehab to improve pt's strength and mobility independence. Goals Bed Mobility Goal Minimal Assistance Transfer Goal Minimal Assistance,Front Wheeled Walker Gait Goal Minimal Assistance,Front Wheel Walker Gait Distance 75 Days to Meet Goals 10 Frequency of Treatment Frequency Of Treatment Once a Day Treatment Plan Physical Therapy Treatment Plan Bed Mobility Training,Transfer Training,Gait Training, Therapeutic Exercise,Balance Retraining,Discharge Planning, Hot or Cold Pack,Neuromuscular Re-ed Precautions Other Precautions falls Recommendations To Nursing Amount of Assist Needed 2 Person Assist Discharge Recommendations PT Discharge Recommendations SNF Rehab Transportation Needs at Discharge Wheelchair/Cabulance
--- NOTE | 2021-10-05 11:13 | OT.IP.EVAL ---
Current Diagnoses COVID-19 (10/02/21) Past Medical History (Last Reviewed 10/02/21 @ 10:57 by Nicolasa Tatum DO) Coronary artery disease Hyperlipidemia Hypertension Hypothyroid Parkinson's disease Surgical History (Last Reviewed 10/02/21 @ 10:57 by Nicolasa Tatum DO) No pertinent past surgical history Stented coronary artery Occupational Therapy Inpatient Evaluation/Re-Eval M1 PT/OT-IP Prior Functional Status Start: 10/04/21 09:03 Freq: NEEDED Status: Active Protocol: Document 10/05/21 12:16 CGR (Rec: 10/05/21 12:32 CGR [id number]) Medical Review Prior Functional Status Medical History Reviewed Yes Communication Pt is an effective verbal communicator. Mobility and Gait Pt was able to mobilize short distances in the home with a 4ww. Pt needed assist getting in and out of bed. Activities of Daily Living and IADL's Pt needed assist with dressing , bathing, managing medications, but is able to perform toileting by himself. They have an aide that comes in once a week that helps with showering and other pt's Toni assists. Social History Household Members spouse Living Arrangements House Number of Floors (Floors) One Floor Number of Stairs To Enter/Railing? no steps. Home Environment Standard Height Toilet,Walk in Shower,Built-In Shower Seat Home Equipment Four Wheel Walker,Bedside Commode Additional Social History Comment PT has an adjustable bed with a railing and an up walker. M1 PT/OT-IP Prior Functional Status Start: 10/05/21 12:16 Freq: NEEDED Status: Active Protocol: Document 10/05/21 12:16 CGR (Rec: 10/05/21 12:32 CGR [id number]) Medical Review Prior Functional Status Medical History Reviewed Yes Communication Pt is an effective verbal communicator. Mobility and Gait Pt was able to mobilize short distances in the home with a 4ww. Pt needed assist getting in and out of bed. Activities of Daily Living and IADL's Pt needed assist with dressing , bathing, managing medications, but is able to perform toileting by himself. They have an aide that comes in once a week that helps with showering and other pt's Toni assists. Social History Household Members spouse Living Arrangements House Number of Floors (Floors) One Floor Number of Stairs To Enter/Railing? no steps. Home Environment Standard Height Toilet,Walk in Shower,Built-In Shower Seat Home Equipment Four Wheel Walker,Bedside Commode Additional Social History Comment PT has an adjustable bed with a railing and an up walker. M2 OT-IP Current Condition Start: 10/05/21 12:16 Freq: Status: Active Protocol: Document 10/05/21 12:16 CGR (Rec: 10/05/21 12:32 CGR [id number]) Occupational Therapy Current Condition Current Condition Evaluation Date 10/05/21 Treatment Diagnosis Covid, NSTEMI Diagnosis Onset Date 10/02/21 M3 OT- IP Subjective and Pain Start: 10/05/21 12:16 Freq: Status: Active Protocol: Document 10/05/21 12:16 CGR (Rec: 10/05/21 12:32 CGR [id number]) OT- Subjective Occupational Therapy Visit Type Type Initial Evaluation Visit Start Time 10:35 Visit Stop Time 11:13 Total Visit Minutes 38 Notes partial co-treat with P.T. M4 OT- IP ADL's Start: 10/05/21 12:16 Freq: Status: Active Protocol: Document 10/05/21 12:16 CGR (Rec: 10/05/21 12:32 CGR [id number]) OT [id number] Comments OT Self-Feeding Comments not meal time OT ADL-Grooming General Evaluation Grooming Ability Standby Assistance Areas Needing Assistance Combing/Brushing Hair,Face Washing Comments OT Grooming Comments seated in chair OT ADL-Oral Care General Eval Oral Care Ability Maximum Assistance Areas of Assistance Brushing Teeth,Retrieving/Set- Up of Items Comments Oral Care Comments pt needed assist opening tooth paste, applying to tooth brush and then brushing teeth. PT states he has an electric tooth brush which he is able to use with his assisting to get paste on brush. OT ADL-Dressing General Eval Lower Body Dressing Ability Total Assistance Areas Needing Assistance Socks Comments OT Dressing Comments Pt states his performs all LB dressing. OT ADL-Toileting Comments OT Toileting Comments not performed OT ADL-Bathing Comments OT Bathing Comments not performed M5 OT- IP IADL's Start: 10/05/21 12:16 Freq: Status: Active Protocol: Document 10/05/21 12:16 CGR (Rec: 10/05/21 12:32 CGR [id number]) OT-Instrumental Activities of Daily Living Deficits IADL Deficits Identified Deficits Home Safety Awareness Awareness of Need for Assistance at Home Decreased Awareness Ability to Problem Solve Emergency Unable to Problem Solve Situations Medication Management Medication Management Caregiver Administers Money Management Money Management Caregiver Provides Assistance Meal Preparation Meal Preparation Caregiver Provides Assist Boiler Out Boiler Out Caregiver Provides Assist Driving Driving Caregiver Provides Assist M6 OT- IP Functional Cognition Start: 10/05/21 12:16 Freq: Status: Active Protocol: Document 10/05/21 12:16 CGR (Rec: 10/05/21 12:32 CGR [id number]) Cognitive Factors Limiting Selfcare Function Cognitive Ability Level of Alertness Alert,Confusional State Patient Orientation Name,Month,Year,Place, Situation Attention Span Ability Capable of Focused Attention, Capable of Sustained Attention Ability to Follow Commands Able to Follow One Step Commands with Increased Time, Able to Follow One Step Commands with Repetition Cognitive Comments Cognitive Assessment Comments May benefit from formal cog assessment to catelog current function OT- Vision and Hearing OT- Hearing Assessment OT- Hearing Assessment WFL OT- Vision Assessment Visual Acuity Glasses All The Time Visual Attentiveness WFL Occular Pursuits WFL Vision Assessment Comments delayed eye movmenets but WLF given that pt does not drive. M7 OT- IP Mobility and Balance Start: 10/05/21 12:16 Freq: Status: Active Protocol: Document 10/05/21 12:16 CGR (Rec: 10/05/21 12:32 CGR [id number]) OT- Bed Mobility Assessment Supine to Sit Supine to Sit Assist Maximum Assistance,2 Person Assistance Scooting Scooting to Edge of Bed Maximum Assistance,2 Person Assistance OT-Transfer Assessment Sit to and From Stand Sit to and from Stand Moderate Assistance,Maximum Assistance,2 Person Assistance Transfers Transfer Ability Moderate Assistance,Maximum Assistance,2 Person Assistance Technique Transfer Destination Bed,Chair Transfer Technique Stand Step Pivot Devices Transfer Assistive Devices Gait Belt,Front Wheeled Walker Comments Mobility Comments Pt was able to transfer with difficulty to a chair ~3 feet away. OT- Balance Assessment Sitting Balance and Reactions Static Sitting Balance Ability Fair Dynamic Sitting Balance Ability Poor M8 OT- IP Objective Assessments Start: 10/05/21 12:16 Freq: Status: Active Protocol: Document 10/05/21 12:16 CGR (Rec: 10/05/21 12:32 CGR [id number]) OT Gross Range of Motion Upper Extremity Range of Motion Assessment Right Impaired ROM Impairments R shld without mobility. Noted what appears to be a bone abnormality to the R shld. Pt states he fell on that shld and needs sx but has declined sx thus far. OT Strength Comments Strength Comments grossly 3+ to 4-/5 except R shld OT- Coordination Assessment Upper Extremity Finger to Nose Test Within Functional Limits Finger Tapping Test Bilateral UE Impaired OT-Muscle Tone Assessment Muscle Tone WNL Yes OT Sensation Assessment Edema Edema Absent M9 OT- IP Assessment and Plan Start: 10/05/21 12:16 Freq: Status: Active Protocol: Document 10/05/21 12:16 CGR (Rec: 10/05/21 12:32 CGR [id number]) OT Summary Assessment and Plan Potential Rehabilitation Potential Good Analytic Complexity at Evaluation High Summary OT Impairments Range of Motion,Strength, Balance,Coordination, Functional Cognition, Functional Mobility,Grooming, Dressing,Toileting,Bathing, Toilet Transfers,Shower Transfers,Activity Tolerance Progress Towards Goals Slow Progress due to Medical Issues,Slow Progress due to Activity Tolerance,Slow Progress due to Cognition Assessment Summary Pt presents as a high complexity evaluation s/p admit for covid and NSTEMI. Pt currently needing 2 person assist for mobility and would benefit from SNF upon discharge from the hospital. Pt lives with his who assists him typically at home with most ADLs but pt was mobile with the walker for toileting and mobility. Recommend d/c to SNF. Goals Toileting Goal Independent Bathing Goal Minimal Assistance Toilet Transfer Goal Independent Shower Transfer Goal Minimal Assistance Days to Meet Goals 20 Frequency of Treatment Frequency Of Treatment Once a Day Treatment Plan OT Treatment Plan ADL Training,Functional Cognition Training,Functional Mobility,Patient/Family Education,Discharge Planning Other Treatment Recommendations and Next cog assessment, 2 person Treatment Focus assist for mobility. Discharge Recommendations OT Discharge Recommendations SNF Rehab Transportation Needs at Discharge Wheelchair/Cabulance
--- NOTE | 2021-10-05 13:41 | CM.DPC ---
Addendum entered by Sue Rod R.N. 10/05/21 15:18: Per July, [facility] cannot accept due to COVID infection. ADJ Original Note: DCP Cont: DCP spoke with MD this afternoon and per MD and PT, pt is a 2 person assist and needing SNF. Pt is Covid +. This could be a barrier for placement. DCP placed call to [facility] and their policy is pt needs to be 10 days post diagnosis and no symptoms. [facility] does not accept COVID + patients. [facility] does not accept Covid +, have to be 10 days post diagnosis. Call was placed to [facility]. JEMAL Khan to continue to work with the team and discuss further options for pt. Sue Rod RN/JEMAL
--- NOTE | 2021-10-05 17:31 | PM.PN.1 ---
Subjective Subjective Date Patient Seen: 10/05/21 Interval history: Patient feels weak still but much improved. Some discomfort in his back and is anxious to get out of bed. Heparin infusion to stop this afternoon. He denies chest pain, shortness of breath, abdominal pain, nausea, vomiting. Exam Vital Signs (past 8 hours): - 10/05/21 09:59 10/05/21 11:49 10/05/21 15:53 Temperature 97.9 F 97.5 F L Pulse Rate 48 L 45 L 43 L Respiratory Rate 17 16 Blood Pressure 188/75 H 164/67 H 153/57 H Pulse Oximetry 95 94 Oxygen Flow Rate 0 2 Oxygen Delivery Method Room Air Oxygen Flow Rate 2 Narrative Exam Narrative: General:? Patient is well developed and well nourished, in no distress at this time. HEENT:? Normocephalic, atraumatic, extraocular muscles intact, oral pharynx is clear and mucous membranes are moist. Neck: supple and symmetric, trachea is midline, no cervical adenopathy. Negative for JVD Chest:? Normal AP diameter and contour without kyphoscoliosis, no tachypnea, equal chest rise bilaterally. Lungs:? CTA b/l no wheezing rhonchi or rales. Cardio:?RRR no m/r/g. Abdomen: S NT ND. Musculoskeletal:? Muscle strength and tone are equal within normal limits, no deformity. Extremities: No edema or joint effusions. No cyanosis or clubbing. Skin:? Pale,? Warm to touch,dry and intact without rashes, ulcerations or petechiae.? Neuro:? Alert, mildly confused, hard of hearing. Psych:? Patient has a well-kept appearance, appropriate affect, mental status attitude thought context and judgment are appropriate for age. Objective Labs Result Diagrams: 10/05/21 05:16 10/05/21 05:16 Labs: Laboratory Results - last 24 hr 10/05/21 10/05/21 10/05/21 05:16 05:16 05:16 WBC 6.8 RBC 3.96 L Hgb 12.6 L Hct 36.5 L MCV 92.0 MCH 31.9 MCHC 34.6 RDW 14.0 Plt Count 170 Neut % (Auto) 73.3 Lymph % (Auto) 16.0 L [place] % (Auto) 10.6 Eos % (Auto) 0.0 L Baso % (Auto) 0.1 Neut # (Auto) 5000 Lymph # (Auto) 1100 [place] # (Auto) 700 Eos # (Auto) 0 Baso # (Auto) 0 APTT 30 D Sodium 136 L Potassium 3.8 Chloride 109 H Carbon Dioxide 24 BUN 28 H Creatinine 0.73 Estimated GFR > 60 BUN/Creatinine Ratio 38.4 H Glucose 127 H Calcium 7.9 L [facility] Medical History Coronary artery disease Hyperlipidemia Hypertension Hypothyroid Parkinson's disease Surgical History No pertinent past surgical history Stented coronary artery Social History household members: spouse Smoking Status: Never smoker alcohol intake: current Assessment & Plan Assessment & Plan narrative: This is an 81 year old male with coronary artery disease, hyperlipidemia, hypertension, hypothyroidism and Parkinson's disease who presents with 2 days of increasing mental confusion, weakness, inability to dress or feed himself and fever. Admitted with NSTEMI and COVID infection. Metabolic encephalopathy present on admission. Active. -Likely related to acute COVID infection superimposed on already altered mental processing of advanced Parkinson's. -improved today, but remains very weak and deconditioned. COVID Infection, possible pneumonia, present on admission. Active. -no longer on supplemental oxygen. -continued remdesevir and decardon until no longer requiring oxygen. -CT without lung consolidation. Acute respiratory failure with hypoxia - unclear etiology, CT chest without definitive infiltrate. May be dysregulated response in setting of COVID inflammation. - other possibilities include possible acute on chronic heart failure, though volume overload was not appreciated and patient improved without diuretic therapies. Parkinson's disease, present on admission. Active. -This is undoubtedly a major component of his altered mental status and weakness. - continue Rytary, Rivastigmine, Amantadine NSTEMI elevated troponin, present on admission. Active. - IV heparin 48 hours per Cardiology recommendation, now off. -continue asa and statin therapy. -related to acute illness most likely, not a cardiac catheterization candidate. -Isosorbide, Atorvastatin and Carvedilol Chronic systolic heart failure, less likely acute portion as discussed above. - EF 25-30% without significant change to prior performed today. - no current signs of volume overload as discussed above. - continue home medications including beta mitra and lisinopril Hypertension, present on admission. Active. -Isosorbide, Spironolactone and Carvedilol Hypothyroidism, present on admission. Chronic. -Levothyroxine Hyperlipidemia, present on admission. Chronic. -Atorvastatin Depression, present on admission. Chronic. -Duloxetine His backup decision maker is his Lovenox for DVT prevention Dispo: pending SNF, may be difficult to find given + COVID status. Time Spent With Patient Critical Care time: I spent a total of [] minutes of critical care time on this patient's care today; this time is exclusive of procedural time. Quality VTE Deep Vein Thrombosis/Pulmonary Embolism Present on Admission: No
[2021-10-06] VITALS (8 sets, daily range): BP systolic 100–179; BP diastolic 53–84; PULSE 51–67; RESP 15–18; TEMP 36.1–37.3; O2SAT 90–95
--- NOTE | 2021-10-06 06:14 | PC.NURSE ---
Pt is now positive for covid. Pt now has a wet non productive cough. Continues to be bradicardic and hypertensive. Pt slept most of the night.
[2021-10-06] MEDS: CEFEPIME 2 GM in SODIUM CHLORIDE 0.9% 100 ML IV ×3 (07:09→23:05)
[2021-10-06] MEDS: DULOXETINE 30 MG CAPSULE PO (08:54)
[2021-10-06] MEDS: SPIRONOLACTONE 25 MG TABLET 12.5 MG PO (08:54)
[2021-10-06] MEDS: lisinopriL 5 MG TABLET PO (08:54)
[2021-10-06] MEDS: ASPIRIN EC 81 MG TABLET PO (08:54)
[2021-10-06] MEDS: ISOSORBIDE MONONITRATE ER 30 MG TABLET 60 MG PO (08:54)
[2021-10-06] MEDS: LORATADINE 10 MG TABLET PO (08:54)
[2021-10-06] MEDS: guaiFENesin ER 600 MG TAB 1200 MG PO (08:54)
[2021-10-06] MEDS: ATORVASTATIN 20 MG TABLET 40 MG PO (08:54)
[2021-10-06] MEDS: CHOLECALCIFEROL (VITAMIN D3) 1,000 UNIT TABLET 1000 UNIT PO (08:54)
[2021-10-06] MEDS: LEVOTHYROXINE 125 MCG TABLET PO (08:54)
[2021-10-06] MEDS: ENOXAPARIN 40 MG/0.4 ML SYRINGE SUBCUT (08:55)
[2021-10-06] MEDS: RIVASTIGMINE 13.3 EACH TOP (08:56)
[2021-10-06] MEDS: CARBIDOPA LEVODOPA 1 EACH PO ×4 (08:57→21:00)
[2021-10-06] MEDS: AMANTADINE 100 MG CAPSULE PO ×2 (09:31→21:02)
[2021-10-06] MEDS: TAMSULOSIN 0.4 MG CAPSULE PO ×2 (09:32→21:04)
[2021-10-06] MEDS: SODIUM CHLORIDE 0.9% FLUSH 10 ML IV ×3 (09:37→23:08)
--- NOTE | 2021-10-06 10:00 | OT.IP.TRT ---
Current Diagnoses COVID-19 (10/02/21) Occupational Therapy Treatment Note M2 OT-IP Current Condition Start: 10/05/21 12:16 Freq: Status: Active Protocol: Document 10/05/21 12:16 CGR (Rec: 10/05/21 12:32 CGR [id number]) Occupational Therapy Current Condition Current Condition Evaluation Date 10/05/21 Treatment Diagnosis Covid, NSTEMI Diagnosis Onset Date 10/02/21 M3 OT- IP Subjective and Pain Start: 10/05/21 12:16 Freq: Status: Active Protocol: Document 10/06/21 09:13 [facility] (Rec: 10/06/21 10:22 [facility] [id number]) OT- Subjective Occupational Therapy Visit Type Visit Start Time 09:13 Visit Stop Time 10:00 Total Visit Minutes 47 Occupational Therapy Visit Comments Patient Comments Pt wanting to shower. FARM TRACTOR MECHANIC came in to assist. Patient/Caregiver Goals TO get better and go home. OT Pain Assessment Pain When Pain Assessed At Rest Pain Present Pain Present Denied Pain M4 OT- IP ADL's Start: 10/05/21 12:16 Freq: Status: Active Protocol: Document 10/06/21 09:13 [facility] (Rec: 10/06/21 10:22 [facility] [id number]) OT [id number] Comments OT Self-Feeding Comments not meal time OT ADL-Grooming Comments OT Grooming Comments not performed. OT ADL-Oral Care Comments Oral Care Comments not performed OT ADL-Dressing General Eval Lower Body Dressing Ability Total Assistance Areas Needing Assistance Socks OT ADL-Toileting Comments OT Toileting Comments not performed OT ADL-Bathing Bathing Type Bathing Type Shower General Evaluation Bathing Ability Maximal Assistance Areas Needing Assistance Wash/Dry Upper Body,Wash/Dry Back,Wash/Dry Perineal Area, Wash/Dry Lower Extremities Devices Bathing Equipment Hand Held Shower Sprayer, Shower Chair with Arms,Grab Bars Comments OT Bathing Comments Pt needing assist for most of bathing needs. OT having to assist pt to squat, partial stand MAX AX 1 so FARM TRACTOR MECHANIC able to do his percare needs. M5 OT- IP IADL's Start: 10/05/21 12:16 Freq: Status: Active Protocol: Document 10/05/21 12:16 CGR (Rec: 10/05/21 12:32 CGR [id number]) OT-Instrumental Activities of Daily Living Deficits IADL Deficits Identified Deficits Home Safety Awareness Awareness of Need for Assistance at Home Decreased Awareness Ability to Problem Solve Emergency Unable to Problem Solve Situations Medication Management Medication Management Caregiver Administers Money Management Money Management Caregiver Provides Assistance Meal Preparation Meal Preparation Caregiver Provides Assist Party Plan Sales Unit Sales Leader Party Plan Sales Unit Sales Leader Caregiver Provides Assist Driving Driving Caregiver Provides Assist M6 OT- IP Functional Cognition Start: 10/05/21 12:16 Freq: Status: Active Protocol: Document 10/06/21 09:13 [facility] (Rec: 10/06/21 10:22 [facility] [id number]) Cognitive Factors Limiting Selfcare Function Cognitive Ability Level of Alertness Alert,Confusional State Patient Orientation Name Attention Span Ability Capable of Focused Attention, Unable to Sustain Attention Ability to Follow Commands Able to Follow One Step Commands with Increased Time, Able to Follow One Step Commands with Repetition Cognitive Comments Cognitive Assessment Comments Pt just not taking his Parkinson's medications. Started SLUMS and pt thought it was Tuesday. Pt not able to repeat any objects after stated. Pt seems somewhat hard of hearing and the CAPR may have made it hard for him to understand directions at this time. Pt not wanting to do any more on the SLUMS and score so far /14. Pt appears not at his baseline and impaired for cognitive needs at this time. Pt also states did not sleep well last night. M7 OT- IP Mobility and Balance Start: 10/05/21 12:16 Freq: Status: Active Protocol: Document 10/06/21 09:13 [facility] (Rec: 10/06/21 10:22 [facility] [id number]) OT-Transfer Assessment Sit to and From Stand Sit to and from Stand Moderate Assistance,Maximum Assistance,2 Person Assistance Transfers Transfer Ability Moderate Assistance,Maximum Assistance,2 Person Assistance Technique Transfer Destination Chair,Shower Stall Devices Transfer Assistive Devices Gait Belt,Front Wheeled Walker Comments Mobility Comments Sit to stand needign from MOD Ax2 to MAX AX2 and same assist with transfers and taking a few steps to the shower. Pt needing assist for weight shifting, assist to advance his feet at times, balance, and assist to more the FWW. At this time still safer to nursing for transfers only at this time. OT- Balance Assessment Sitting Balance and Reactions Static Sitting Balance Ability Fair Dynamic Sitting Balance Ability Poor Standing Balance and Reactions Static Standing Balance Ability Poor Dynamic Standing Balance Ability Poor M8 OT- IP Objective Assessments Start: 10/05/21 12:16 Freq: Status: Active Protocol: Document 10/05/21 12:16 CGR (Rec: 10/05/21 12:32 CGR [id number]) OT Gross Range of Motion Upper Extremity Range of Motion Assessment Right Impaired ROM Impairments R shld without mobility. Noted what appears to be a bone abnormality to the R shld. Pt states he fell on that shld and needs sx but has declined sx thus far. OT Strength Comments Strength Comments grossly 3+ to 4-/5 except R shld OT- Coordination Assessment Upper Extremity Finger to Nose Test Within Functional Limits Finger Tapping Test Bilateral UE Impaired OT-Muscle Tone Assessment Muscle Tone WNL Yes OT Sensation Assessment Edema Edema Absent M9 OT- IP Assessment and Plan Start: 10/05/21 12:16 Freq: Status: Active Protocol: Document 10/06/21 09:13 [facility] (Rec: 10/06/21 10:22 [facility] [id number]) OT Summary Assessment and Plan Potential Rehabilitation Potential Good Analytic Complexity at Evaluation High Summary OT Impairments Range of Motion,Strength, Balance,Coordination, Functional Cognition, Functional Mobility,Grooming, Dressing,Toileting,Bathing, Toilet Transfers,Shower Transfers,Activity Tolerance Progress Towards Goals Progressing Toward Goals,Slow Progress due to Medical Issues ,Slow Progress due to Activity Tolerance,Slow Progress due to Cognition Assessment Summary Pt still needing two person assist for transfers and mobility needs and able to tolerate walking a few steps to the shower today. At this time,pt level of care too great for his to assist in addition, pt's has recently tested positive for COVID. Pt will benefit from skilled rehab prior to going home. Goals Grooming Goal Independent Dressing Goal Independent Toileting Goal Independent Bathing Goal Minimal Assistance Toilet Transfer Goal Independent Shower Transfer Goal Minimal Assistance Days to Meet Goals 19 Frequency of Treatment Frequency Of Treatment Once a Day Treatment Plan OT Treatment Plan ADL Training,Functional Cognition Training,Functional Mobility,Patient/Family Education,Discharge Planning Discharge Recommendations OT Discharge Recommendations SNF Rehab Transportation Needs at Discharge Wheelchair/Cabulance
--- NOTE | 2021-10-06 11:42 | PT.IPTN ---
Current Diagnoses COVID-19 (10/02/21) Physical Therapy Treatment Note M2 PT-IP Current Condition Start: 10/04/21 09:03 Freq: NEEDED Status: Active Protocol: Document 10/05/21 11:00 AW (Rec: 10/05/21 13:40 AW [id number]) Physical Therapy Current Condition Current Condition Evaluation Date 10/05/21 Treatment Diagnosis COVID (+), encephalopathy, weakness, PD, impaired mobility and gait Onset Date 10/02/21 M3 PT-IP Subjective Start: 10/04/21 09:03 Freq: NEEDED Status: Active Protocol: Document 10/06/21 11:30 KS (Rec: 10/06/21 12:02 KS [id number]) Subjective Physical Therapy Visit Type Type Treatment Note Visit Start Time 11:30 Visit Stop Time 11:42 Total Visit Minutes 12 Number of SUPERVISOR POULTRY HATCHERY Visits 1 Physical Therapy Visit Comments Patient Comments Pt is willing to participate with PT. M4 PT-IP Mobility and Gait Start: 10/04/21 09:03 Freq: NEEDED Status: Active Protocol: Document 10/06/21 11:30 KS (Rec: 10/06/21 12:02 KS [id number]) PT-Transfer Assessment Comments Mobility Comments Pt in chair upon arrival and initially agreeable to practice sit<>stands but then refused due to fatigue following shower this AM. Pt then agreed to exercises in chair. Pt able to complete 2x10 bilateral ankle pumps and SLR and 1x10 bilateral heel slides, seated marches, and attempted quad sets but very weak and w/ knee flexion contractures. Pt extremely fatigued and needing cues to stay awake during exercises. He needed Mod A to sit forward in chair and could not maintain. Gait Assessment Comments Gait Comments Pt not agreeable. Stair Climbing Assessment Comments Stair Climbing Comments No stairs in home environment. PT-Balance Assessment Sitting Balance and Reactions Static Sitting Balance Ability Poor Dynamic Sitting Balance Ability Poor M5 PT-IP Objective Assessments Start: 10/04/21 09:03 Freq: NEEDED Status: Active Protocol: Document 10/05/21 11:00 AW (Rec: 10/05/21 13:40 AW [id number]) Orientation Orientation/Cognition Level of Alertness Confusional State Orientation Name,Month,Year,Place, Situation Safety Awareness Decreased Safety Awareness Gross Range of Motion Lower Extremity ROM Assessment Bilaterally Impaired Impairments Pt lacks terminal knee extension RLE. LLE is more severely affected with flexion contracture. Strength Lower Extremity Strength Assessment Bilaterally Impaired Hip 4-/5 Knee 3/5 L; 3+/5 R Ankle 4/5 Sensation Assessment Sensation Gross Sensation WNL Muscle Tone Muscle Tone WNL No Comments Muscle Tone Comments Rigid trunk affects gait stability. 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 M6 PT-IP Treatment Start: 10/04/21 09:03 Freq: NEEDED Status: Active Protocol: Document 10/06/21 11:30 KS (Rec: 10/06/21 12:02 KS [id number]) Physical Therapy Treatment Exercises Exercises Ankle Pumps,Quad Sets,Heel Slides,Straight Leg Raises Other Treatments Other Treatment Performed Seated marching M7 PT-IP Assessment and Plan Start: 10/04/21 09:03 Freq: NEEDED Status: Active Protocol: Document 10/06/21 11:30 KS (Rec: 10/06/21 12:02 KS [id number]) PT Summary Assessment and Plan Potential Rehabilitation Potential Fair Summary Impairments ROM,Strength,Balance,Sensation ,Cognition,Bed Mobility, Transfers,Gait,Activity Tolerance Progress Towards Goals Slow Progress due to Medical Issues,Slow Progress due to Activity Tolerance Assessment Summary Pt unable to tolerate OOB mobility today, initially agreeable but then reported increased fatigue and inability to perform. Was able to complete minimal exercises in chair, but was very weak and fatigued needing cues to stay awake throughout. He needed Mod A to lean forward and unable to maintain sitting balance. He is far from baseline and will need SNF to improve strength, activity tolerance, and functional mobility independence. Goals Bed Mobility Goal Minimal Assistance Transfer Goal Minimal Assistance,Front Wheeled Walker Gait Goal Minimal Assistance,Front Wheel Walker Gait Distance 75 Days to Meet Goals 10 Frequency of Treatment Frequency Of Treatment Once a Day Treatment Plan Physical Therapy Treatment Plan Bed Mobility Training,Transfer Training,Gait Training, Therapeutic Exercise,Balance Retraining,Discharge Planning, Hot or Cold Pack,Neuromuscular Re-ed Precautions Other Precautions falls Recommendations To Nursing Amount of Assist Needed 2 Person Assist Discharge Recommendations PT Discharge Recommendations SNF Rehab Transportation Needs at Discharge Wheelchair/Cabulance
--- NOTE | 2021-10-06 13:14 | PC.NURSE ---
Pt A&OX1-2 this a.m. He initially states he wants to get up He is cleaned of incontinent urine (requiring total assist to turn in bed) and assisted to sitting. He bears little weight and doesn't attempt to feed himself breakfast. he states he would like bath, and shaving and assisted to brush his teeth, again requiring complete assistance. He sits up in the chair for a couple hours after OT& ORDERING MACHINE OPERATOR shower him. He denies feeling hungry for breakfast and lunch. He is able to take po meds in applesauce but falls back to sleep. Appears very fatigued, and more withdrawn today. He denies wanting RN to call pipe line inspector or his . Continuous monitoring.
--- NOTE | 2021-10-06 15:57 | P.PN_ITS ---
Subjective Subjective Date Patient Seen: 10/06/21 Interval history: Patient feels weak, more lethargic today. No chest pain, nausea, vomiting, abdominal pain, palpitations, shortness of breath. Exam Vital Signs (past 8 hours): - 10/06/21 08:54 10/06/21 10:00 10/06/21 13:49 Temperature 96.9 F L 97.6 F Pulse Rate 55 L 67 51 L Respiratory Rate 16 17 Blood Pressure 166/78 H 100/61 138/56 L Pulse Oximetry 93 94 Oxygen Flow Rate 0 0 Oxygen Delivery Method Room Air Oxygen Flow Rate 0 Narrative Exam Narrative: General:? Patient is well developed and well nourished, ill appearing today but in no distress at this time. HEENT:? Normocephalic, atraumatic, extraocular muscles intact, oral pharynx is clear and mucous membranes are moist. Neck: supple and symmetric, trachea is midline, no cervical adenopathy. Negative for JVD Chest:? Normal AP diameter and contour without kyphoscoliosis, no tachypnea, equal chest rise bilaterally. Lungs:? CTA b/l no wheezing rhonchi or rales. Cardio:?RRR no m/r/g. Abdomen: S NT ND. Musculoskeletal:? Muscle strength and tone are equal within normal limits, no deformity. Extremities: No edema or joint effusions. No cyanosis or clubbing. Skin:? Pale,? Warm to touch,dry and intact without rashes, ulcerations or petechiae.? Neuro:? Alert, mildly confused, more lethargic but arousable, hard of hearing. Psych:? Patient has a well-kept appearance, mental status attitude thought context and judgment are appropriate for age. Objective Labs Result Diagrams: 10/05/21 05:16 10/05/21 05:16 [facility] Medical History Coronary artery disease Hyperlipidemia Hypertension Hypothyroid Parkinson's disease Surgical History No pertinent past surgical history Stented coronary artery Social History household members: spouse Smoking Status: Never smoker alcohol intake: current Assessment & Plan Assessment & Plan narrative: This is an 81 year old male with coronary artery disease, hyperlipidemia, hypertension, hypothyroidism and Parkinson's disease who presents with 2 days of increasing mental confusion, weakness, inability to dress or feed himself and fever. Admitted with NSTEMI and COVID infection. Metabolic encephalopathy present on admission. Active. -Likely related to acute COVID infection superimposed on already altered mental processing of advanced Parkinson's. -improved somewhat, but remains very weak and deconditioned and cognition seems slightly declined. COVID Infection, possible pneumonia, present on admission. Active. -no longer on supplemental oxygen. -continued remdesevir and decardon until no longer requiring oxygen. -CT without lung consolidation. Acute respiratory failure with hypoxia - unclear etiology, CT chest without definitive infiltrate. May be dysregulated response in setting of COVID inflammation. - other possibilities include possible acute on chronic heart failure, though volume overload was not appreciated and patient improved without diuretic therapies. Parkinson's disease, present on admission. Active. -This is undoubtedly a major component of his altered mental status and weakness. - continue Rytary, Rivastigmine, Amantadine NSTEMI elevated troponin, present on admission. Active. - IV heparin 48 hours per Cardiology recommendation, now off. -continue asa and statin therapy. Continue telemetry for now, though no events noted thus far. discontinue tomorrow if no events noted. -related to acute illness most likely, not a cardiac catheterization candidate. -Isosorbide, Atorvastatin and Carvedilol Chronic systolic heart failure, less likely acute portion as discussed above. - EF 25-30% without significant change to prior performed today. - no current signs of volume overload as discussed above. - continue home medications including beta mitra and lisinopril Hypertension, present on admission. Active. -Isosorbide, Spironolactone and Carvedilol Hypothyroidism, present on admission. Chronic. -Levothyroxine Hyperlipidemia, present on admission. Chronic. -Atorvastatin Depression, present on admission. Chronic. -Duloxetine His backup decision maker is his Lovenox for DVT prevention Dispo: pending SNF, may be difficult to find given + COVID status. Time Spent With Patient Critical Care time: I spent a total of [] minutes of critical care time on this patient's care today; this time is exclusive of procedural time. Quality VTE Deep Vein Thrombosis/Pulmonary Embolism Present on Admission: No
[2021-10-06] MEDS: carvediloL 3.125 MG TABLET 3.25 MG PO (21:02)
--- NOTE | 2021-10-06 23:57 | PC.NURSE ---
Patient minimally responsive; when he attempts to speak he starts to cough. Was able to state his first name. Breath sounds diminished throughout and has loose, moist sounding, non productive cough; RA sat 94%. HRR w/telemetry reading of SR w/PAC's. BT hypoactive and has not had a BM since 10/03. Is incontinent of urine. Needing assistance to reposition q2h as too weak to move himself although he does attempt to help. Sacral dressing CDI. Some redness of scrotum noted. Wearing bilateral calf SCD's. Denied pain. Remains on covid precautions. Fall risk score is high and bed alarm is activated.
[2021-10-07] VITALS (10 sets, daily range): BP systolic 165–190; BP diastolic 69–85; PULSE 60–80; RESP 14–22; TEMP 36.3–37.1; O2SAT 93–97
[2021-10-07] MEDS: SODIUM CHLORIDE 0.9% FLUSH 10 ML IV ×3 (06:44→20:43)
[2021-10-07] MEDS: CEFEPIME 2 GM in SODIUM CHLORIDE 0.9% 100 ML IV (06:44)
[2021-10-07] MEDS: ENOXAPARIN 40 MG/0.4 ML SYRINGE SUBCUT (08:59)
[2021-10-07] MEDS: ASPIRIN EC 81 MG TABLET PO (08:59)
[2021-10-07] MEDS: SPIRONOLACTONE 25 MG TABLET 12.5 MG PO (09:00)
[2021-10-07] MEDS: ISOSORBIDE MONONITRATE ER 30 MG TABLET 60 MG PO (09:00)
[2021-10-07] MEDS: CHOLECALCIFEROL (VITAMIN D3) 1,000 UNIT TABLET 1000 UNIT PO (09:00)
[2021-10-07] MEDS: TAMSULOSIN 0.4 MG CAPSULE PO (09:00)
[2021-10-07] MEDS: LEVOTHYROXINE 125 MCG TABLET PO (09:00)
[2021-10-07] MEDS: carvediloL 3.125 MG TABLET 3.25 MG PO (09:01)
[2021-10-07] MEDS: ATORVASTATIN 20 MG TABLET 40 MG PO (09:01)
[2021-10-07] MEDS: LORATADINE 10 MG TABLET PO (09:01)
[2021-10-07] MEDS: DULOXETINE 30 MG CAPSULE PO (09:01)
[2021-10-07] MEDS: lisinopriL 5 MG TABLET PO (09:03)
[2021-10-07] MEDS: guaiFENesin ER 600 MG TAB 1200 MG PO (09:03)
[2021-10-07] MEDS: CARBIDOPA LEVODOPA 1 EACH PO ×2 (09:13→11:45)
[2021-10-07] MEDS: [UNRECOGNIZED DRUG - OTHER] 15 EACH SL (09:14)
[2021-10-07] MEDS: RIVASTIGMINE 13.3 EACH TOP (09:14)
[2021-10-07] MEDS: AMANTADINE 100 MG CAPSULE PO (09:16)
--- NOTE | 2021-10-07 10:35 | DI.RAD.S_ITS ---
PROCEDURE: XR CHEST 1V INDICATIONS: altered mental status TECHNIQUE: One view of the chest was acquired. COMPARISON: [facility], CR, XR CHEST 1V, 10/02/2021, 10:41. [facility], CR, XR CHEST 1V, 04/26/2021, 16:02. FINDINGS: Surgical changes and devices: Aortic valve replacement. Lungs and pleura: Mid and lower lung opacities greater on the right. Possible trace pleural effusions. Mediastinum: Heart size is mildly enlarged. Bones and chest wall: No suspicious bony lesions. Overlying soft tissues appear unremarkable. IMPRESSION: Infectious or inflammatory mid and lower lung opacities, greater on the right. Dictated by: Julio Davis M.D. on 10/07/2021 at 11:07 Approved by: Julio Davis M.D. on 10/07/2021 at 11:08
--- NOTE | 2021-10-07 10:35 | DI.CT.S_ITS ---
PROCEDURE: CT HEAD/BRAIN WO CON INDICATIONS: altered mental status TECHNIQUE: Noncontrast 4.5 mm thick angled axial sections acquired from the foramen magnum to the vertex, with coronal and sagittal reformats. For radiation dose reduction, the following was used: automated exposure control, adjustment of mA and/or kV according to patient size. COMPARISON: [facility], CT, CT HEAD/BRAIN WO CON, 10/02/2021, 11:23. FINDINGS: Image quality: Excellent. CSF spaces: Basal cisterns are patent. No extra-axial fluid collections. The ventricles are symmetric in size and shape. Brain: No intracranial bleeds or masses. There is cerebral volume loss for age, with resultant ventricular and sulcal prominence. There are periventricular and deep white matter chronic small vessel ischemic changes. There is intracranial internal carotid artery atherosclerosis. Skull and face: Calvarium and visualized facial bones appear intact, without suspicious lesions. Sinuses: Visualized sinuses and mastoids are clear. IMPRESSION: No acute intracranial finding. Dictated by: Nestor Valdes M.D. on 10/07/2021 at 11:07 Approved by: Nestor Valdes M.D. on 10/07/2021 at 11:10
[2021-10-07 11:41] LABS: Add Manual Diff / Slide Review NO; Basophils Absolute Auto 0 /uL (0-100); Basophils Percent Auto 0.2 % (0-2); Eosinophils Absolute Auto 100 /uL (0-450); Hematocrit 38.9 % (41-53); Hemoglobin 13.7 g/dL (13.5-17.5); Lymphocytes Absolute Auto 1000 /uL (1100-4500); Lymphocytes Percent Auto 12.1 % (25-40); Mean Corpuscular HGB Conc 35.2 % (30-36); Mean Corpuscular Hemoglobin 32.1 PG (26-34); Mean Corpuscular Volume 91.2 fL (80-100); Monocytes Absolute Auto 1000 /uL (0-900); Monocytes Percent Auto 12.6 % (3-14); Neutrophils Absolute Auto 5900 /uL (1500-7000); Neutrophils Percent Auto 74.1 % (50-75); Platelet Count 166 X10^3/uL (150-400); Red Blood Cell Count 4.26 X10^6/uL (4.5-5.9); Red Cell Distribution Width 13.6 % (11.6-14.8)
--- NOTE | 2021-10-07 11:44 | OT.IPNOTE ---
Per Dr. Hirsch pt to be on hold today as not medically appropriate, to check on the pt tomorrow.
[2021-10-07] MEDS: ACETAMINOPHEN 325 MG TABLET 650 MG PO (11:46)
[2021-10-07 11:57] LABS: Alanine Aminotransferase 8 IU/L (<50); Albumin 3.3 g/dL (3.5-5.0); Albumin Globulin Ratio 1.2 (1.0-2.8); Alkaline Phosphatase 58 U/L (38-126); Aspartate Aminotransferase 36 IU/L (17-59); BUN Creatinine Ratio 23.8 (6-22); Bilirubin Total 1.2 mg/dL (0.2-1.3); Blood Urea Nitrogen 19 mg/dL (9-20); Calcium 8.4 mg/dL (8.4-10.2); Carbon Dioxide 23 mmol/L (22-32); Chloride 107 mmol/L (98-107); Creatine Kinase 72 U/L (55-170); Estimated Glomerular Filt Rate > 60 mL/min (>60); Globulin 2.7 g/dL (1.7-4.1); Glucose 150 mg/dL (80-110); HEMOLYSIS < 15 (0-50); Magnesium 1.9 mg/dL (1.6-2.3); Potassium 3.4 mmol/L (3.4-5.1); Sodium 136 mmol/L (137-145)
--- NOTE | 2021-10-07 11:57 | PT-IP ANOTE ---
Per Dr. Hirsch, hold PT today pt not appropriate. Will check back tomorrow.
[2021-10-07 12:32] LABS: Troponin I 0.367 ng/mL (0.01-0.034)
--- NOTE | 2021-10-07 14:50 | P.PN_ITS ---
Subjective Subjective Date Patient Seen: 10/07/21 Interval history: Patient is somnolent today, unable to arouse. Patient is stiff and diaphoretic. CXR shows new infiltrates. EKG unchanged from before, troponin much lower than previous. Remained on cefepime, will add vancomycin for possible MRSA pneumonia. UA pending. Exam Vital Signs (past 8 hours): - 10/07/21 08:48 10/07/21 09:01 10/07/21 09:03 Temperature 97.6 F Pulse Rate 65 65 65 Respiratory Rate 17 Blood Pressure 190/85 H 190/85 H Pulse Oximetry 96 Oxygen Delivery Method Oxygen Flow Rate 0 10/07/21 09:09 10/07/21 11:02 10/07/21 11:46 Temperature 98.7 F Pulse Rate 65 Respiratory Rate Blood Pressure 172/81 H Pulse Oximetry Oxygen Delivery Method Room Air Oxygen Flow Rate 10/07/21 14:33 Temperature Pulse Rate 67 Respiratory Rate 20 Blood Pressure Pulse Oximetry 97 Oxygen Delivery Method Oxygen Flow Rate Oxygen Delivery Method Room Air Oxygen Flow Rate 0 Narrative Exam Narrative: General:? Patient is well developed and well nourished, ill appearing today but in no distress at this time. HEENT:? Normocephalic, atraumatic, extraocular muscles intact, oral pharynx is clear and mucous membranes are moist. Neck: supple and symmetric, trachea is midline, no cervical adenopathy. Negative for JVD Chest:? Normal AP diameter and contour without kyphoscoliosis, no tachypnea, equal chest rise bilaterally. Lungs:? CTA b/l no wheezing rhonchi or rales. Cardio:?RRR no m/r/g. Abdomen: S NT ND. Musculoskeletal:? Muscle strength and tone are equal within normal limits, no deformity. Extremities: No edema or joint effusions. No cyanosis or clubbing. Skin:? Pale,? Warm to touch,dry and intact without rashes, ulcerations or petechiae.? Neuro:? Alert, mildly confused, more lethargic but arousable, hard of hearing. Psych:? Patient has a well-kept appearance, mental status attitude thought context and judgment are appropriate for age. Objective Labs Result Diagrams: 10/07/21 11:07 10/07/21 11:07 Labs: Laboratory Results - last 24 hr 10/07/21 10/07/21 10/07/21 11:07 11:07 11:07 WBC 8.0 RBC 4.26 L Hgb 13.7 Hct 38.9 L MCV 91.2 MCH 32.1 MCHC 35.2 RDW 13.6 Plt Count 166 Neut % (Auto) 74.1 Lymph % (Auto) 12.1 L [place] % (Auto) 12.6 Eos % (Auto) 1.0 L Baso % (Auto) 0.2 Neut # (Auto) 5900 Lymph # (Auto) 1000 L [place] # (Auto) 1000 H Eos # (Auto) 100 Baso # (Auto) 0 Sodium 136 L Potassium 3.4 Chloride 107 Carbon Dioxide 23 BUN 19 Creatinine 0.80 Estimated GFR > 60 BUN/Creatinine Ratio 23.8 H Glucose 150 H Calcium 8.4 Magnesium 1.9 Total Bilirubin 1.2 AST 36 ALT 8 Alkaline Phosphatase 58 Total Creatine Kinase 72 Troponin I 0.367 H* Total Protein 6.0 L Albumin 3.3 L Globulin 2.7 Albumin/Globulin Ratio 1.2 [facility] Medical History Coronary artery disease Hyperlipidemia Hypertension Hypothyroid Parkinson's disease Surgical History No pertinent past surgical history Stented coronary artery Social History household members: spouse Smoking Status: Never smoker alcohol intake: current Assessment & Plan Assessment & Plan narrative: This is an 81 year old male with coronary artery disease, hyperlipidemia, hypertension, hypothyroidism and Parkinson's disease who presents with 2 days of increasing mental confusion, weakness, inability to dress or feed himself and fever. Admitted with NSTEMI and COVID infection. Metabolic encephalopathy present on admission. Active. -Likely related to acute COVID infection superimposed on already altered mental processing of advanced Parkinson's. -improved somewhat, but remains very weak and deconditioned and cognition seems slightly declined. -acute change on 10/07 with rigidity and diaphoresis, likely parkinsonian medicat ion withdrawl. Somewhat improved later in the day but also with worsened infiltrates on CXR. -remains on cefepime, but will add vancomycin. COVID Infection, possible pneumonia, present on admission. Active. -no longer on supplemental oxygen. -continued remdesevir and decardon until no longer requiring oxygen. -CT without lung consolidation initially, repeat CXR today with possible infiltrate. Acute respiratory failure with hypoxia, resolved - unclear etiology, CT chest without definitive infiltrate. May be dysregulated response in setting of COVID inflammation. - other possibilities include possible acute on chronic heart failure, though volume overload was not appreciated and patient improved without diuretic therapies. Parkinson's disease, present on admission. Active. -This is undoubtedly a major component of his altered mental status and weakness. - continue Rytary, Rivastigmine, Amantadine. Consider dosing adjustments based on patient's symptoms. NSTEMI elevated troponin, present on admission. Active. - IV heparin 48 hours per Cardiology recommendation, now off. -continue asa and statin therapy. Continue telemetry for now, though no events noted thus far. discontinue tomorrow if no events noted. -related to acute illness most likely, not a cardiac catheterization candidate. -Isosorbide, Atorvastatin and Carvedilol Chronic systolic heart failure, less likely acute portion as discussed above. - EF 25-30% without significant change to prior performed this admission. - no current signs of volume overload as discussed above. - continue home medications including beta mitra and lisinopril Hypertension, present on admission. Active. -Isosorbide, Spironolactone and Carvedilol Hypothyroidism, present on admission. Chronic. -Levothyroxine Hyperlipidemia, present on admission. Chronic. -Atorvastatin Depression, present on admission. Chronic. -Duloxetine Code:DNR His backup decision maker is his Deedee for DVT prevention Dispo: pending SNF, may be difficult to find given + COVID status. Time Spent With Patient Critical Care time: I spent a total of [] minutes of critical care time on this patient's care today; this time is exclusive of procedural time. Quality VTE Deep Vein Thrombosis/Pulmonary Embolism Present on Admission: No
[2021-10-07 15:27] LABS: Appearance Urine UA CLEAR; Bilirubin Urine UA NEGATIVE (NEGATIVE); Color Urine UA YELLOW; Glucose Urine UA NEGATIVE (Negative); Ketones Urine UA 1+ (NEGATIVE); Leukocyte Esterase Urine UA NEGATIVE (NEGATIVE); Nitrite Urine UA NEGATIVE (Negative); Occult Blood Urine UA 1+ (Negative); Protein Urine UA 2+ (Negative); Urobilinogen Urine UA 0.2 E.U./dL (0.2)
--- NOTE | 2021-10-07 15:31 | CM.DPC ---
DCP Cont: Per MD, pt seems to have declined in health in the last day or two and do poorly with PT yesterday and today more somnolent and not very responsive and sending further labs and pt remains on IV-Abx. PT still recommending SNF due to assist needs. Prior SNF attempts: [facility] declines. [facility]- cannot accept until at least 10 days from initial COVID+ and non-symptomatic. [facility] kindly faxed all [facility] SNF's. SW called following [facility] SNF's: [facility]- left msg [facility]- cannot accept active COVID pt and then case by case pending needs and symptoms [facility]- left msg [facility]- left msg [facility]- no beds until next week and would review if pt is 10 days out from initial COVID+. Per Debridging Machine Operator, pending pt's care needs and ongoing decline in health, potential need for MD to have Goals of Care discussion with pt/spouse. Plan: SW to follow closely for pt's progress and needs towards determining attempting further SNF rehab vs possible change to [facility]. Karen Henley, ACCOUNTANT SYSTEMS
[2021-10-07 15:37] LABS: Hyaline Casts Urine 5-10/LPF
[2021-10-07 15:38] LABS: RBC Urine 5-10/HPF (0-5/HPF); Squamous Epithelial Cell Urine 1-5 /HPF (0-5/HPF); WBC Urine 1-5/HPF (0-5/HPF)
[2021-10-07 15:39] LABS: Bacteria Urine None Seen; Culture Indicated Urine Cult Not Indicated
[2021-10-07] MEDS: VANCOMYCIN 1,000 MG/200 ML PIGGYBACK 200 MG IV (16:36)
[2021-10-07] MEDS: VANCOMYCIN PER PHARMACY 1 REQUEST MISC (16:37)
--- NOTE | 2021-10-07 18:59 | PC.NURSE ---
RN spoke with and she is requesting pt be DNR, provider was notified and orders updated. General diet however, pt is having difficulty swallowing meds, takes with small sips of water and apple sauce, pt was able to take all meds today except last dose of carbadopa levadopa today, provider notified, no new orders given at this time. states that the pt likes chacolate and milk shakes, however he did refuse both pudding and milkshake today. RN called to notify her that pt will need more of his lower dose carbadopa levadopa because pharmacy is out. notified RN that pt takes lower dose of carbadopa levadopa only once a day, and higher dose x3 daily, provider notified and new orders placed. RN placed new IV today in left arm and new IV lines as well, pt tolerated well. both RN and SENIOR SQL DEVELOPER offered to brush teeth for pt, and pt refused, they were able to wipe face with wet cloth. The pt was restless in the morning before meds given, he is now resting quietly in bed.
--- NOTE | 2021-10-07 21:15 | PC.NURSE ---
Patient opens eyes when spoken to but does not respond verbally. Unable to give po medications as patient would not open mouth to take crushed meds in; Michael ALVAREZ, informed. Breath sounds diminished and is currently on oxygen at 2L/min per NC with sat of 93%. Continues to have intermittent moist, loose sounding non productive cough. HRR w/telemetry reading of SB rate of 57. BP trending high and was 166/80. BT hypoactive; had BM on previous shift. Is incontinent of B&B. Not moving himself so is being repositioned q2h. Wearing bilateral calf SCD's. Weak in all extremities. FLACC score is 1. Fall risk is high at RN discretion and bed alarm is activated. Remains on covid precautions.
[2021-10-08] VITALS: BP 152/45; PULSE 80; RESP 15; TEMP 36.6; O2SAT 95
[2021-10-08] MEDS: VANCOMYCIN 1,000 MG/200 ML PIGGYBACK 200 MG IV (03:32)
[2021-10-08] MEDS: SODIUM CHLORIDE 0.9% FLUSH 10 ML IV ×4 (03:33→20:52)
[2021-10-08 03:55] VITALS: BP 183/70; PULSE 76; RESP 22; TEMP 36.5; O2SAT 95
[2021-10-08 05:58] LABS: BUN Creatinine Ratio 28.6 (6-22); Blood Urea Nitrogen 22 mg/dL (9-20); Calcium 8.3 mg/dL (8.4-10.2); Carbon Dioxide 20 mmol/L (22-32); Chloride 110 mmol/L (98-107); Estimated Glomerular Filt Rate > 60 mL/min (>60); Glucose 106 mg/dL (80-110); HEMOLYSIS < 15 (0-50); Potassium 3.4 mmol/L (3.4-5.1); Sodium 138 mmol/L (137-145)
--- NOTE | 2021-10-08 09:33 | PC.NURSE ---
Addendum entered by Denisha Razo R.N. 10/08/21 11:21: RN notified provider that pt is not responding and closes mouth when attempting to give food and meds, criminal records technician spoke to provider as well and will reach out to and have a conversation about the next steps in care. Original Note: At begining of shift, pt roused and moved a little when RN came in and said hello. Pt refused to eat or drink and will close mouth tight when RN offers meds as well. RN went into room 2x before 0930 and RN is unable to give meds at this time.
[2021-10-08 10:00] VITALS: BP 186/82; PULSE 77; RESP 20; TEMP 36.8; O2SAT 96
--- NOTE | 2021-10-08 11:11 | OT.IPNOTE ---
Hold OT treatment today, pt unable to take his meds per chart. To check on pt tomorrow and also see if pt is still appropriate for OT therapy needs.
--- NOTE | 2021-10-08 11:37 | PT-IP ANOTE ---
Per rounds, hold PT today. Pt refusing PD medications and therefore very rigid. Will see if pt still appropriate for therapy tomorrow.
--- NOTE | 2021-10-08 13:44 | OT.IPNOTE ---
Per case management, pt is now comfort care, therefore discharge pt from OT services.
--- NOTE | 2021-10-08 14:06 | DIET.CONS2 ---
Dietary Inpatient Consultation Note Admission Date: 10/02/2021 12:05 81y M with covid pna and NSTEMI, hx parkinsons disease refusing PO food, fluids and meds changed to comfort care. Diet: 10/02/21 Dinner Heart Healthy Diet Diet Modifications: ensure enlive tid Nutrition Percent Meal Consumed 0% 10/07/21 10:14 Percent Meal Consumed 5% 10/06/21 18:38 Electronically Signed by: Lola Velásquez 10/08/21 14:06 Clinical Dietitian [address] [address]
--- NOTE | 2021-10-08 14:25 | PT.IPTN ---
Current Diagnoses COVID-19 (10/02/21) Physical Therapy Treatment Note M2 PT-IP Current Condition Start: 10/04/21 09:03 Freq: NEEDED Status: Active Protocol: Document 10/05/21 11:00 AW (Rec: 10/05/21 13:40 AW [id number]) Physical Therapy Current Condition Current Condition Evaluation Date 10/05/21 Treatment Diagnosis COVID (+), encephalopathy, weakness, PD, impaired mobility and gait Onset Date 10/02/21 M3 PT-IP Subjective Start: 10/04/21 09:03 Freq: NEEDED Status: Active Protocol: Document 10/08/21 14:24 AB (Rec: 10/08/21 14:25 AB [id number]) Subjective Physical Therapy Visit Type Type Administrative Note Notes Per UTILIZATION MANAGEMENT NURSE, pt plans to be on comfort care. Talked with disease case manager rn and charge nurse and confirmed that pt will be on comfort care and agreed to d/c PT. M6 PT-IP Treatment Start: 10/04/21 09:03 Freq: NEEDED Status: Active Protocol: Document 10/06/21 11:30 KS (Rec: 10/06/21 12:02 KS [id number]) Physical Therapy Treatment Exercises Exercises Ankle Pumps,Quad Sets,Heel Slides,Straight Leg Raises Other Treatments Other Treatment Performed Seated marching M7 PT-IP Assessment and Plan Start: 10/04/21 09:03 Freq: NEEDED Status: Active Protocol: Document 10/08/21 14:24 AB (Rec: 10/08/21 14:25 AB [id number]) PT Summary Assessment and Plan Frequency of Treatment Frequency Of Treatment Discharge
--- NOTE | 2021-10-08 21:15 | PM.PN.1 ---
Subjective Subjective Date Patient Seen: 10/08/21 Time Patient Seen: 08:00 Interval history: He began refusing multiple interventions. He declined to eat. His family was made aware and goals of care were changed to comfort care. He was unable to participate in exam Exam Vital Signs (past 8 hours): Oxygen Delivery Method Nasal Cannula Oxygen Flow Rate 1 Narrative Exam Narrative: General:? ill appearing Lungs:? clear bilaterally Cardio:?regular rate and rhythm Abdomen: soft nontender EXT: rigid upper and lower extrmemities Neuro:?confused, opens eyes to voice, not verbalizing, not following commands Objective Labs Result Diagrams: 10/07/21 11:07 10/08/21 05:27 Labs: Laboratory Results - last 24 hr 10/08/21 05:27 Sodium 138 Potassium 3.4 Chloride 110 H Carbon Dioxide 20 L BUN 22 H Creatinine 0.77 Estimated GFR > 60 BUN/Creatinine Ratio 28.6 H Glucose 106 Calcium 8.3 L [facility] Medical History Coronary artery disease Hyperlipidemia Hypertension Hypothyroid Parkinson's disease Surgical History No pertinent past surgical history Stented coronary artery Social History household members: spouse Smoking Status: Never smoker alcohol intake: current Assessment & Plan Assessment & Plan narrative: Mr. Clay is an 81M with H coronary artery disease, hyperlipidemia, hypertension, hypothyroidism and Parkinson's disease who presented with COVID, confusion found to have NSTEMI and encephalopathy 1. Metabolic encephalopathy present on admission. Active. -Likely related to acute COVID infection superimposed on already altered mental processing of advanced Parkinson's. -acute change on 10/07 with rigidity and diaphoresis, with some concern initially from effect from parkinsons meds being possibly underdosed, however suspect this as less likely given continued administration of his parkinsons meds, possibly worsened with multiple acute illnesses -discussion with family on 10/08 and they believe goals of care to be comfort based 2. COVID Infection, possible pneumonia, present on admission. Active. -no longer on supplemental oxygen. -initially with acute respiratory failure with hypoxia now improved 3. Parkinson's disease - continue Rytary, Rivastigmine, Amantadine 4. NSTEMI elevated troponin, treated - IV heparin 48 hours per cards recs, now stopped after over 48 hours of treatment -stop oral meds as not comfort care based -related to acute illness most likely, not a cardiac catheterization candidate. 5. Chronic systolic heart failure - EF 25-30% without significant change to prior performed this admission. - no current signs of volume overload as discussed above. Dispo: Goals of care discussion wanted to focus on comfort after significant decline in patient with advanced parkinsons and acute illness with pneumonia and NSTEMI. Medications switched to comfort focused and discharge to hospice possible and pending. Time Spent With Patient Critical Care time: I spent a total of [] minutes of critical care time on this patient's care today; this time is exclusive of procedural time. Quality VTE Deep Vein Thrombosis/Pulmonary Embolism Present on Admission: No
[2021-10-09 06:47] VITALS: BP 172/84; PULSE 54; RESP 18; TEMP 36.2; O2SAT 95
--- NOTE | 2021-10-09 08:26 | CM.DPNOTE ---
Faxed referral to [facility] per Sue. Yue Miller CM Assist.
--- NOTE | 2021-10-09 08:57 | CM.DPC ---
Addendum entered by Sue Rod R.N. 10/09/21 11:43: Spoke with pt spouse regarding barrier to finding a facility who will take patient. SHARONP explained in more detail the aspects of what Hospice care entails. Toni states that her main fear is that the patient would choke to and she would not be able to handle that. DCP verbalized the main benefit of hospice care being their support system and helping the pt and pt family through the process. Toni understands and SHARONP was able to help support her in the best way she could. Toni verbalized to SHARONP, I am ok with bringing the pt home. DCP verbalized that [facility] would contact her to do informational visit and to set up a time to bring the equipment. Toni thankful for the discussion. SHARONP spoke with [facility] . The earliest they can see the pt would be Tuesday between [phone]. Sneha @ [facility]osp[facility] is going to do the informational visit today and set up a time for equipment delivery. Sneha to update me by the end of the day regarding any changes. Sue Rod RN/JEMAL Original Note: DCP Cont: Hospice referral was sent but instructed Sneha [facility] to hold until further discussion was had with spouse. SHARONP spoke with Toni, pt , this morning to discuss further discharge needs. Toni states that she saw the pt yesterday and states, there is no comparison to his current level of activity. Pt is not there. Toni states that she did not know if pt heard him at all yesterday but Toni states that he was not responding. JEMAL spoke about hospice care and Toni states that she knows what hospice is but would not be able to take him home under hospice at her house. Toni requesting to find a facility that would take him under hospice care. Toni states that she spoke with the RN yesterday and that she told her that pt will be here for the next couple of days and if pt does not within those days, that hospice would need to be explored at that point. SHARONP verbalized that she was going to see the MD this morning to discuss further plan of care. Toni verbalized understanding and will be updated when new information arises. Sue Rod RN/JEMAL
[2021-10-09 09:13] VITALS: O2SAT 95
[2021-10-09 09:23] VITALS: BP 159/79; PULSE 60; RESP 22; TEMP 36.6; O2SAT 96
[2021-10-09] MEDS: LORazepam 2 MG/ML ORAL SOL 0.5 MG PO (13:56)
[2021-10-09 15:48] VITALS: PULSE 59; O2SAT 94
--- NOTE | 2021-10-09 19:38 | P.PN_ITS ---
Subjective Subjective Date Patient Seen: 10/09/21 Interval history: 81-year-old gentleman with underlying Parkinson's disease, hypertension, hypothyroidism, coronary artery disease, and hyperlipidemia who was admitted with COVID pneumonia. He was initially on dexamethasone and remdesivir. However, he developed increasing encephalopathy. He subsequently developed an NSTEMI. If echo revealed an EF of 25-30%. He began refusing medications as well as all p.o. intake and was transitioned to comfort care on October 08, 2021. Today, patient has had a brief period of becoming agitated. He received as needed lorazepam. He has not required any morphine. Upon my arrival into his room this evening, he briefly smiled at me but was otherwise not engaging. He was noted to have a very dry mouth. When I attempted to provide a toothette, he clamped his mouth down and would not take it. Exam Vital Signs (past 8 hours): - 10/09/21 15:48 Pulse Rate 59 L Pulse Oximetry 94 Oxygen Flow Rate 1 Oxygen Delivery Method Nasal Cannula Oxygen Flow Rate 1 Narrative Exam Narrative: GEN: Alert, nonverbal, no acute distress HEENT:NC, Face symmetric CHEST: Respiratory excursions symmetric, coarse but CTAB, Dominic-Parr respirations noted CV: RRR, no M/R/G ABD: Soft, NT/ND, BT present in all 4 quadrants, no organomegaly or masses EXTR: warm, well perfused, no C/C/E SKIN: warm and dry, no rash NEURO: Alert, nonfocal Objective Labs Result Diagrams: 10/07/21 11:07 10/08/21 05:27 [facility] Medical History Coronary artery disease Hyperlipidemia Hypertension Hypothyroid Parkinson's disease Surgical History No pertinent past surgical history Stented coronary artery Social History household members: spouse Smoking Status: Never smoker alcohol intake: current Assessment & Plan Assessment & Plan narrative: 1. Acute metabolic encephalopathy, likely secondary to acute COVID infection and advanced Parkinson's disease 2. COVID infection, possible pneumonia 3. Parkinson's disease, advanced 4. NSTEMI 5. Chronic systolic CHF As patient is on comfort care, he is currently not receiving active therapies for any of the above. He does have Parkinson's medications available should he choose to take them, but has continued to refuse. Continue morphine as needed, lorazepam as needed. Anticipate prognosis of 48-72 hours. Time Spent With Patient Critical Care time: I spent a total of [] minutes of critical care time on this patient's care toda y; this time is exclusive of procedural time. Quality VTE Deep Vein Thrombosis/Pulmonary Embolism Present on Admission: No
[2021-10-09] MEDS: SODIUM CHLORIDE 0.9% FLUSH 10 ML IV (21:15)
[2021-10-10 05:40] VITALS: BP 182/75; PULSE 57; RESP 12; TEMP 36.4; O2SAT 96
--- NOTE | 2021-10-10 07:17 | P.PN_ITS ---
Subjective Subjective Date Patient Seen: 10/10/21 Interval history: 81-year-old gentleman with underlying Parkinson's disease, hypertension, hypothyroidism, coronary artery disease, and hyperlipidemia who was admitted with COVID pneumonia.? He was initially on dexamethasone and remdesivir.? However, he developed increasing encephalopathy.? He subsequently developed an NSTEMI.? echo revealed an EF of 25-30%.? He began refusing medications as well as all p.o. intake and was transitioned to comfort care on October 08, 2021. Today, patient is requesting a Pepsi. He is awake and alert. He took his parkinson's meds this am. He is lying in bed without a sheet. He states he is not feeling cold. He is joking with me. He denies any pain or shortness of breath. Exam Vital Signs (past 8 hours): - 10/10/21 05:40 Temperature 97.5 F L Pulse Rate 57 L Respiratory Rate 12 Blood Pressure 182/75 H Pulse Oximetry 96 Oxygen Flow Rate 1 Oxygen Delivery Method Nasal Cannula Oxygen Flow Rate 1 Narrative Exam Narrative: GEN: Alert, pleasantly confused, no acute distress HEENT:NC, Face symmetric CHEST: Respiratory excursions symmetric, coarse but CTAB CV: RRR, no M/R/G ABD: Soft, NT/ND, BT present in all 4 quadrants, no organomegaly or masses EXTR: warm, well perfused, no C/C/E SKIN: warm and dry, no rash NEURO: Alert, nonfocal Objective Labs Result Diagrams: 10/07/21 11:07 10/08/21 05:27 [facility] Medical History Coronary artery disease Hyperlipidemia Hypertension Hypothyroid Parkinson's disease Surgical History No pertinent past surgical history Stented coronary artery Social History household members: spouse Smoking Status: Never smoker alcohol intake: current Assessment & Plan Assessment & Plan narrative: 1. Acute metabolic encephalopathy, likely secondary to acute COVID infection and advanced Parkinson's disease 2. COVID infection, possible pneumonia 3. Parkinson's disease, advanced 4. NSTEMI 5. Chronic systolic CHF As patient is on comfort care, he is currently not receiving active therapies for any of the above.? He does have Parkinson's medications available should he continue to choose to take them. Long discussion today with patient's spouse and 2 daughters. They were surprised he was more awake today. Also apprised that he was receiving his Parkinson's medications. I did explain to him than that he may be more comfortable in terms of his tremors and stiffness with the medication rather than without it. Certainly, if he is declining the medication we will not pursue anything aggressive to have him take it. and daughters expressed understanding. We did discuss discharging home with hospice. They do express some concern about their ability to meet his needs at home but also understand placement may be challenging. For now, they request [facility] and wished to wait for hospice [facility] to be able to admit him. They do decline referral to [facility] hospice even if he could be admitted sooner. Will continue comfort care and monitoring his symptoms closely. Time Spent With Patient Critical Care time: I spent a total of [] minutes of critical care time on this patient's care today; this time is exclusive of procedural time. Quality VTE Deep Vein Thrombosis/Pulmonary Embolism Present on Admission: No
[2021-10-10] MEDS: TAMSULOSIN 0.4 MG CAPSULE PO ×2 (08:13→21:48)
[2021-10-10] MEDS: CARBIDOPA LEVODOPA 1 EACH PO ×3 (08:13→21:48)
[2021-10-10] MEDS: RIVASTIGMINE 13.3 EACH TOP (08:13)
[2021-10-10] MEDS: SODIUM CHLORIDE 0.9% FLUSH 10 ML IV ×2 (08:19→21:49)
[2021-10-10 09:47] VITALS: O2SAT 96
--- NOTE | 2021-10-10 10:29 | CM.DPC ---
Addendum entered by Sue Rod R.N. 10/10/21 16:18: DCP was asked by MD if she could assist with discussion with family. MD and DCP spoke with the family about pt situation and it was determined that [facility] the family preference vs [facility]. MD explained the benefits of hospice and what that means for the family. DCP assisted with any other questions regarding setting up hospice. Informational visit is scheduled with [facility] on Tuesday. Equipment will need to be set up and Hospice can see pt at the earliest unless they have cancelations. Please follow up with them. DCP to continue to follow. Sue Rod RN/JEMAL Addendum entered by Sue Rod R.N. 10/10/21 11:17: DCP faxed [facility] referral. Per [facility], they could potentially accept pt Tuesday or Tuesday. RN is to provide referral to the devulcanizer charger on Tuesday and decide if they would be willing to bring on pt Tuesday afternoon or Tuesday. DCP to follow up with them first thing Tuesday. ADJ Original Note: DCP Cont: Spoke with [facility] this morning. They were not able to do info visit yesterday with . Attempting to do either today or tomorrow. Hospice cannot see this pt until Tuesday. MD suggest DCP contact [facility]. DCP contacted [facility] and awaiting call back from them. Sue Rod RN/JEMAL
--- NOTE | 2021-10-10 17:22 | PC.NURSE ---
Pt is AxOx1, arousable and awake most of the day today. Pt took his morning med and noon med as well. Pt drank almost full Ensure during lunch and talked litte bit. Xi P[place] is draining abel color urine. Pt's dtrs and spouse were here today and met with him and interacted. Hospice referral made to [facility]. No other changes.
[2021-10-10 20:57] VITALS: PULSE 64; O2SAT 94
[2021-10-11 05:00] VITALS: BP 182/75; RESP 12; TEMP 36.4
--- NOTE | 2021-10-11 05:48 | P.PN_ITS ---
Subjective Subjective Date Patient Seen: 10/11/21 Interval history: 81-year-old gentleman with underlying Parkinson's disease, hypertension, hypothyroidism, coronary artery disease, and hyperlipidemia who was admitted with COVID pneumonia.? He was initially on dexamethasone and remdesivir.? However, he developed increasing encephalopathy.? He subsequently developed an NSTEMI.? echo revealed an EF of 25-30%.? He began refusing medications as well as all p.o. intake and was transitioned to comfort care on October 08, 2021. Today, patient is sitting up, in a chair, watching baseball. He states he likes the [employer]. He is following the game. He does have a Pepsi a bedside which he has been drinking. He denies any pain or shortness of breath. He states he does have some cough when he drinks but otherwise denies complaint. When notified that his and daughter were outside in the hallway, he asked if they could come in to see him. Exam Vital Signs (past 8 hours): Fraction of Inspired Oxygen 24 Oxygen Delivery Method Nasal Cannula Oxygen Flow Rate 1 Narrative Exam Narrative: GEN: Alert, oriented times 2-3, pleasant,, no acute distress HEENT:NC, Face symmetric CHEST: Respiratory excursions symmetric, coarse but CTAB CV: RRR, no M/R/G ABD: Soft, NT/ND, BT present in all 4 quadrants, no organomegaly or masses EXTR: warm, well perfused, no C/C/E SKIN: warm and dry, no rash NEURO: Alert, nonfocal Objective Labs Result Diagrams: 10/07/21 11:07 10/08/21 05:27 [facility] Medical History Coronary artery disease Hyperlipidemia Hypertension Hypothyroid Parkinson's disease Surgical History No pertinent past surgical history Stented coronary artery Social History household members: spouse Smoking Status: Never smoker alcohol intake: current Assessment & Plan Assessment & Plan narrative: 1. Acute metabolic encephalopathy, likely secondary to acute COVID infection and advanced Parkinson's disease, improving 2. COVID infection, possible pneumonia, improving 3. Parkinson's disease, advanced 4. NSTEMI, asymptomatic 5. Chronic systolic CHF Patient had been transition to comfort care on October 08. He was non co mmunicative on October 09, continued to decline medications. On October 10, he was awake, confused, and asking for soda. Plans remained in place she to pursue hospice as he was not taking in any appreciable amounts. Overnight, he had a total of 1300 cc of intake. Awake, watching baseball, and denying any significant symptomatology. I did meet with the and daughter inside of his room. At this time, they are asking whether he remains hospice appropriate. Long discussion between the auto care center manager, patient's , patient's daughter, and me. Discussed that he could still be hospice appropriate but would likely need to return home as there are very few facilities accepting shelter care patients. We discussed the option for going home with home health and hired caregivers. We also discussed looking into intermediate facility for rehab, which would be made more challenging by his COVID diagnosis. For now, will have PT and OT reassessed given his improvement and see what their recommendations are. is very tearful and notes she was having difficulty caring for him even before this illness. She has been very frustrated with his volatile clinical course. Await further recommendations per PT and OT. Discussed with her that he is unlikely to achieve his previous functional level. Encourage her to look towards an assisted living facility whether he returns home with home health or intermediate facility. Discussed that he could again sustained a decline which would make him more appropriate for hospice. She and daughter expressed understanding. They anticipate discharge tomorrow. Time Spent With Patient Critical Care time: I spent a total of [] minutes of critical care time on this patient's care today; this time is exclusive of procedural time. Quality VTE Deep Vein Thrombosis/Pulmonary Embolism Present on Admission: No
[2021-10-11 07:41] VITALS: BP 161/66; PULSE 55; RESP 18; TEMP 36.2; O2SAT 97
[2021-10-11] MEDS: TAMSULOSIN 0.4 MG CAPSULE PO ×2 (08:00→20:22)
[2021-10-11] MEDS: RIVASTIGMINE 13.3 EACH TOP (08:01)
[2021-10-11] MEDS: CARBIDOPA LEVODOPA 1 EACH PO ×4 (08:01→20:21)
[2021-10-11] MEDS: SODIUM CHLORIDE 0.9% FLUSH 10 ML IV ×2 (08:08→20:22)
--- NOTE | 2021-10-11 15:37 | PT.IPRE ---
Current Diagnoses COVID-19 (10/02/21) Surgical History (Last Reviewed 10/02/21 @ 10:57 by Nicolasa Tatum DO) No pertinent past surgical history Stented coronary artery Medical History (Last Reviewed 10/02/21 @ 10:57 by Nicolasa Tatum DO) Coronary artery disease Hyperlipidemia Hypertension Hypothyroid Parkinson's disease Physical Therapy Inpatient Evaluation/Re-Eval M1 PT/OT-IP Prior Functional Status Start: 10/04/21 09:03 Freq: NEEDED Status: Active Protocol: Document 10/11/21 15:15 (Rec: 10/11/21 15:36 [id number]) Medical Review Prior Functional Status Medical History Reviewed Yes Mobility and Gait Pt and family report he ambulated with a 4WW or up walker in the home I'ly. He occasionally needed assist to stand from lower surfaces. Activities of Daily Living and IADL's Pt needed assist with dressing , bathing, managing medications, but is able to perform toileting by himself. They have an aide that comes in once a week that helps with showering and other pt's Toni assists. Social History Household Members spouse Living Arrangements House Number of Floors (Floors) One Floor Number of Stairs To Enter/Railing? no steps. Home Environment Standard Height Toilet,Walk in Shower,Built-In Shower Seat Home Equipment Four Wheel Walker,Bedside Commode Additional Social History Comment PT has an adjustable bed with a railing and an up walker. M1 PT/OT-IP Prior Functional Status Start: 10/05/21 12:16 Freq: NEEDED Status: Active Protocol: Document 10/11/21 15:15 (Rec: 10/11/21 15:36 [id number]) Medical Review Prior Functional Status Medical History Reviewed Yes Mobility and Gait Pt and family report he ambulated with a 4WW or up walker in the home I'ly. He occasionally needed assist to stand from lower surfaces. Activities of Daily Living and IADL's Pt needed assist with dressing , bathing, managing medications, but is able to perform toileting by himself. They have an aide that comes in once a week that helps with showering and other pt's Toni assists. Social History Household Members spouse Living Arrangements House Number of Floors (Floors) One Floor Number of Stairs To Enter/Railing? no steps. Home Environment Standard Height Toilet,Walk in Shower,Built-In Shower Seat Home Equipment Four Wheel Walker,Bedside Commode Additional Social History Comment PT has an adjustable bed with a railing and an up walker. M2 PT-IP Current Condition Start: 10/04/21 09:03 Freq: NEEDED Status: Active Protocol: Document 10/11/21 15:15 BC (Rec: 10/11/21 15:36 [id number]) Physical Therapy Current Condition Current Condition Evaluation Date 10/11/21 Treatment Diagnosis gait abnormality; muscle weakness Onset Date 10/02/21 M3 PT-IP Subjective Start: 10/04/21 09:03 Freq: NEEDED Status: Active Protocol: Document 10/11/21 15:15 BC (Rec: 10/11/21 15:36 [id number]) Subjective Physical Therapy Visit Type Type Re-Evaluation Visit Start Time 14:40 Visit Stop Time 15:15 Total Visit Minutes 31 Physical Therapy Visit Comments Patient Comments Pt agreeable to PT. Family bedside and supportive. M4 PT-IP Mobility and Gait Start: 10/04/21 09:03 Freq: NEEDED Status: Active Protocol: Document 10/11/21 15:15 BC (Rec: 10/11/21 15:36 [id number]) PT-Bed Mobility Assessment Rolling Level of Assist Minimal Assistance Sit to Supine Sit to Supine Moderate Assistance,Bedrails Scooting Scooting to Edge of Bed Minimal Assistance Scooting Up and Down in Bed Maximum Assistance PT-Transfer Assessment Sit to and From Stand Sit to and from Stand Moderate Assistance,1 Person Assistance,Use of Upper Extremities Equipment Transfer Assistive Device Gait Belt,Front Wheeled Walker Transfers Transfer Destination Bed,Chair Transfer Technique Stand Step Pivot Transfer Ability Level of Assist Minimal Assistance,Moderate Assistance Comments Mobility Comments Sit to stand from chair height and raised bed height requiring mod A. Two stand pivot transfers performed. Pt required mod A on second stand pivot with freezing episode occurring. Tactile and verbal cues needed. As freezing occurs Pt's crouched posturing increases needing mod A for balance/safety. Gait Assessment Gait Gait Assistance Required: Minimum Assistance,Moderate Assistance Distance (Feet) 15 Assistive Devices Assistive Device Gait Belt,Front Wheeled Walker Gait Deviations General Gait Pattern Decreased Stride Length, Decreased Feet Clearance, Festinating,Flexed Trunk, Narrow Based Gait Factors Limiting Gait Function Factors Limiting Gait Function Abnormal Tonal Influences, Decreased Activity Tolerance, Decreased Strength,Limited Range of Motion,Poor Balance Comments Gait Comments Pt ambulated 15' with increasing festination and crouched posturing as he fatigued. Once safely seated EOB he was able to stand a second time to take several more steps to head of bed with mod A. PT-Balance Assessment Sitting Balance and Reactions Static Sitting Balance Ability Fair Dynamic Sitting Balance Ability Fair Standing Balance and Reactions Static Standing Balance Ability Poor Dynamic Standing Balance Ability Poor Device Used FWW Comments Other Balance Tests/Deviations/Treatment Croucing posture and : retropulsion increasing fall risk. Functional Assessments Functional Tests Tinetti Balance and Gait Assessment 10/25 M5 PT-IP Objective Assessments Start: 10/04/21 09:03 Freq: NEEDED Status: Active Protocol: Document 10/11/21 15:15 BC (Rec: 10/11/21 15:36 [id number]) Orientation Orientation/Cognition Level of Alertness Alert Orientation Name,Age,Place Safety Awareness Decreased Safety Awareness Gross Range of Motion Upper Extremity ROM Assessment Bilaterally Impaired Impairments R shoulder held in scapular elevation with limited shoulder ROM Lower Extremity ROM Assessment Bilaterally Impaired Impairments Pt lacks terminal knee extension RLE. LLE is more severely affected with flexion contracture. Strength Lower Extremity Strength Assessment Bilaterally Impaired Hip 4-/5 Knee 3/5 L; 3+/5 R Ankle 4/5 Sensation Assessment Sensation Gross Sensation WNL Muscle Tone Muscle Tone WNL No Comments Muscle Tone Comments Increased muscular rigidity both axial and peripheral. M6 PT-IP Treatment Start: 10/04/21 09:03 Freq: NEEDED Status: Active Protocol: Document 10/11/21 15:15 BC (Rec: 10/11/21 15:36 [id number]) Physical Therapy Treatment Education Education Provided Safety Other Treatments Other Treatment Performed Discussed with family the amount of physical support/ assist he is currently needing for transfers vs his PLOF. Per , he would occasionally need min A to stand otherwise he was modif Ind with a walker. Reviewed current level of assist needed is mod A for transfers and limited ambulation. M7 PT-IP Assessment and Plan Start: 10/04/21 09:03 Freq: NEEDED Status: Active Protocol: Document 10/11/21 15:15 BC (Rec: 10/11/21 15:36 BC [id number]) PT Summary Assessment and Plan Potential Rehabilitation Potential Good Status of Condition at Evaluation Stable Summary Impairments ROM,Strength,Balance,Sensation ,Tone,Cognition,Bed Mobility, Transfers,Gait,Activity Tolerance Progress Towards Goals Slow Progress due to Activity Tolerance Assessment Summary Pt agreeable to PT. He is being re-evaluated due to medical status change. He is no longer on comfort care/ hospice. PT POC: he was seen and 10/06/21; then essentially discharged from POC due to decline in medical status. Today, 10/11/21, PT has been re-ordered due to his improved status. He is alert and participating in care today. Pt's and dtr are bedside. They express concern about d/c home and his 's ability to provide the level of assist he needs to mobilize . Pt is demonstrating a better level of mobility vs initial evaluation on 10/05/21 from max to now min/mod assist; however , he is still very deconditioned and weak. He is needing mod A for the most basic of transfers and short ambulation distance of 15'. His bradykinesia, hypokinesia and freezing of movement is very evident on today's re- eval. He is an extremely high fall risk on Tinetti 10/25. His O2 sat on room air stayed above 94% throughout treatment . His mobility may likley wax/ wane greatly with the on/off time of his carbidopa-levadopa intervention. Given he has Parkinson's disease, his recovery following COVID 19 infection will require rehabilitation. He would greatly benefit from SNF placement for daily therapy to assist in his recovery, regain functional reserve, improve independent mobility for both his on and off times of carbidopa- levadopa medication, and reduce risk of injury/fall at home to himself and spouse. Goals Bed Mobility Goal Contact Guard Assistance Transfer Goal Contact Guard Assistance,Front Wheeled Walker Gait Goal Contact Guard Assistance,Front Wheel Walker Gait Distance 75 Days to Meet Goals 10 Frequency of Treatment Frequency Of Treatment Once a Day Treatment Plan Physical Therapy Treatment Plan Bed Mobility Training,Transfer Training,Gait Training, Therapeutic Exercise,Balance Retraining,Discharge Planning, Hot or Cold Pack,Neuromuscular Re-ed Precautions Other Precautions falls Recommendations To Nursing Amount of Assist Needed 1 Person Assist,2 Person Assist Discharge Recommendations PT Discharge Recommendations SNF Rehab Transportation Needs at Discharge Wheelchair/Cabulance
--- NOTE | 2021-10-11 17:25 | CM.DPNOTE ---
Discharge Planning Note: Per Dr Rivero, patient ralled today and is no longer hospice appropriate. Met with spouse, daughter Мария and Dr Rivero today to discuss discharge plans. Patient is Covid+ and options are slim for a SNF discharge. Possible [facility] if they have a quarantine bed? He would need a booster on dc. Plan: Contact [facility] in AM. Fax other SNFs, Home Health. Neva Alcala RN, DCP
--- NOTE | 2021-10-11 17:27 | PC.NURSE ---
Pt is AxOx2 and more awake today and sat down on his recliner for a while. VSS, denies pain. Layne is draining abel color urine. Pt took his PO with med apple sauce. Continued droplet precaution. No other changes. Continue monitor.
[2021-10-11 20:01] VITALS: O2SAT 93
[2021-10-12] MEDS: CARBIDOPA LEVODOPA 1 EACH PO ×4 (10:30→21:52)
[2021-10-12] MEDS: TAMSULOSIN 0.4 MG CAPSULE PO ×2 (10:31→21:52)
[2021-10-12] MEDS: RIVASTIGMINE 13.3 EACH TOP (10:32)
[2021-10-12] MEDS: SODIUM CHLORIDE 0.9% FLUSH 10 ML IV ×2 (10:32→21:52)
--- NOTE | 2021-10-12 11:27 | CM.DPNOTE ---
Sent referrals to [facility], [facility] & [facility]. Yue Miller CM Assist.
--- NOTE | 2021-10-12 13:02 | OT.IPNOTE ---
Pt is planned for discharge to SNF today. No OT eval needed prior to discharge. Will hold at this time.
[2021-10-12 13:29] LABS: COVID19 -Nasal RAPID POSITIVE (Negative)
--- NOTE | 2021-10-12 16:12 | CM.DPNOTE ---
Discharge Planning Note: Patient has been ready for discharge, has written orders for such. [facility] can accept but not until tomorrow because that will have been 11 days post Covid. They have received [facility] record and records. Spouse Toni and daughter Мария in and explained that he will go tomorrow and they are grateful for. They will go to [employer] [employer] and check out if they will allow them. Provided [facility] brochure. Plan: [employer] can machine operator hop picker 11:30-12:00 tomorrow. Neva Alcala RN/DCP
--- NOTE | 2021-10-12 17:21 | P.PN_ITS ---
Subjective Subjective Date Patient Seen: 10/12/21 Time Patient Seen: 08:00 Interval history: Patient has been and remains medically stable for discharge. He has no c omplaints today. Exam Vital Signs (past 8 hours): - 10/12/21 10:30 Oxygen Delivery Method Room Air Fraction of Inspired Oxygen 24 Oxygen Delivery Method Room Air Oxygen Flow Rate 1 Narrative Exam Narrative: GEN: Alert, no acute distress CV: regular rate and rhythm, no murmurs ABD: soft, nontender Objective Labs Result Diagrams: 10/07/21 11:07 10/08/21 05:27 Labs: Laboratory Results - last 24 hr 10/12/21 12:39 SARS-CoV-2 (PCR) Positive H [facility] Medical History Coronary artery disease Hyperlipidemia Hypertension Hypothyroid Parkinson's disease Surgical History No pertinent past surgical history Stented coronary artery Social History household members: spouse Smoking Status: Never smoker alcohol intake: current Assessment & Plan Assessment & Plan narrative: 1. Acute metabolic encephalopathy, likely secondary to acute COVID infection and advanced Parkinson's disease, improving 2. COVID infection, possible pneumonia, improving 3. Parkinson's disease, advanced 4. NSTEMI, asymptomatic 5. Chronic systolic CHF Patient had been transition to comfort care on October 08. He then had slow improvement of his encephalopathy and began taking his medications. Previous provider discussed with family who transitioned him from comfort care to plan for SNF placement. He has remained medically stable for discharge for days. He currently awaits placement. Time Spent With Patient Critical Care time: I spent a total of [] minutes of critical care time on this patient's care today; this time is exclusive of procedural time. Quality VTE Deep Vein Thrombosis/Pulmonary Embolism Present on Admission: No
[2021-10-12 20:19] VITALS: PULSE 73; O2SAT 93
[2021-10-12] MEDS: MORPHINE 2 MG/ML INJ IV (22:37)
[2021-10-13 07:00] VITALS: BP 177/71; PULSE 61; RESP 16; TEMP 36.8; O2SAT 95
[2021-10-13] MEDS: RIVASTIGMINE 13.3 EACH TOP (08:18)
[2021-10-13] MEDS: CARBIDOPA LEVODOPA 1 EACH PO ×3 (08:18→11:17)
[2021-10-13] MEDS: TAMSULOSIN 0.4 MG CAPSULE PO (08:18)
--- NOTE | 2021-10-13 11:03 | P.DS_ITS ---
History of Present Illness History of Present Illness Date Patient Seen: 10/02/21 Time Patient Seen: 21:03 Chief complaint: Cough Narrative: Per admitting provider: This is an 81 year old male with coronary artery disease, hyperlipidemia, hypertension, hypothyroidism and Parkinson's disease who presents with 2 days of increasing mental confusion, weakness, inability to dress or feed himself and fever. He is found to be COVID positive. His troponin is elevated at 1.3 and 2.9 consistent with acute illness increased cardiac stress/demand ischemia. He is not a candidate for a cardiac catheterization with his COVID so Cardiology has recommended a 48 hour heparin drip. His chest x-ray shows no evidence of viral pneumonia. He was started on dexamethasone and remdesivir in the ED. He was also given initial doses of IV antibiotics for possible community-acquired pneumonia. Discharge Providers Provider Date of admission: 10/02/21 12:05 Discharge Date: 10/13/21 Primary care physician: Wes Johnson MD Consults: 10/04/21 08:33 Consult to Occupational Therapy Evaluate & Treat Comment: Physician Instructions: Evaluate and treat Consult to Physical Therapy Evaluate & Treat Comment: Physician Instructions: Evaluate and Treat 10/06/21 16:36 Consult to Dietitian, Adult Routine Comment: Reason For Exam: low Pepe score 10/08/21 12:54 Consult to Discharge Planning Routine Comment: Consult to Hospice Referral Urgent Comment: 10/11/21 13:44 Consult to Occupational Therapy Evaluate & Treat Comment: Physician Instructions: Evaluate and treat Consult to Physical Therapy Evaluate & Treat Comment: Physician Instructions: Evaluate and Treat Discharge provider: Gavin Little MD Summary Hospital Course Discharge Diagnosis: 1. Acute metabolic encephalopathy, likely secondary to acute COVID infection and advanced Parkinson's disease, improving 2. COVID infection, possible pneumonia, improving 3. Parkinson's disease, advanced 4. NSTEMI, asymptomatic 5. Chronic systolic CHF Hospital Course: Mr. Clay was admitted with COVID infection and an NSTEMI and was initially medically treated with IV heparin. He had a chronic systolic CHF exacerbation. He was quite encephalopathic and was refusing medications. There was consideration of hospice and comfort care but his encephalopathy improved. His family decided to not pursue hospice, though he has quite advanced Parkinson's. He was below his functional baseline, and he was discharged to SNF for PT. He has known systolic CHF EF 20-25%, but given overall goals of care his medications were adjusted. He was continued on parkisons medications. He was continued on his coreg. His lisinopril was held due to relative hypotension, but low dose could be restarted at snf if his blood pressure is stable. Exam Vital Signs (past 8 hours): - 10/13/21 07:00 Temperature 98.3 F Pulse Rate 61 Respiratory Rate 16 Blood Pressure 177/71 H Pulse Oximetry 95 Oxygen Flow Rate 0 Fraction of Inspired Oxygen 24 Oxygen Delivery Method Room Air Oxygen Flow Rate 0 Narrative Exam Narrative: GEN: Alert, no acute distress CV: regular rate and rhythm, no murmurs ABD: soft, nontender Objective Labs Result Diagrams: 10/07/21 11:07 10/08/21 05:27 Labs: Laboratory Results - last 24 hr 10/12/21 12:39 SARS-CoV-2 (PCR) Positive H [facility] Medical History Coronary artery disease Hyperlipidemia Hypertension Hypothyroid Parkinson's disease Surgical History No pertinent past surgical history Stented coronary artery Social History household members: spouse Smoking Status: Never smoker alcohol intake: current Discharge Plan Discharge Plan Patient Disposition: SNF Provider Discharge Comment: Mr. Clay came in to the hospital with COVID pneumonia and also had a heart attack. He was treated and improved. He has quite deconditioned and was discharged to SNF for physical therapy. Discharge orders & Medications Prescriptions: New Apomorphine [Kynmobi] 15 mg sublingual PRN PRN (Reason: tremor) Qty: 30 0RF carvedilol [Coreg] 3.125 mg tablet 3.125 mg PO BID Qty: 30 0RF Rx Instructions: must administer with a meal/food aspirin 81 mg capsule 81 mg PO DAILY Qty: 30 0RF atorvastatin 40 mg tablet 40 mg PO BEDTIME Qty: 30 0RF isosorbide mononitrate 60 mg tablet extended release 24 hr 60 mg PO DAILY Qty: 30 0RF Continued Rytary 48.75-195 mg capsule, extended release 48.75 - 195 cap PO BID Rx Instructions: 12PM and 8PM Rytary 61.25-245 mg capsule, extended release 61.25 - 245 cap PO BID Rx Instructions: 8am and 4pm rivastigmine 13.3 mg/24 hour patch 24 hour 13.3 mg transdermal DAILY amantadine HCl 100 mg tablet 100 mg PO BID duloxetine 30 mg capsule,delayed release(DR/EC) 30 mg PO DAILY melatonin 5 mg Tablet 5 mg PO BEDTIME PRN (Reason: Sleep) levothyroxine [Synthroid] 125 mcg tablet 125 mcg PO DAILY tamsulosin 0.4 mg capsule 0.4 mg PO BID Label Comments: takes 2 daily acetaminophen 500 mg Capsule 500 mg PO Q6H PRN (Reason: Headache) Discontinued atorvastatin 40 mg tablet 40 mg PO DAILY lisinopril 5 mg tablet 5 mg PO DAILY loratadine 10 mg tablet 10 mg PO DAILY carvedilol 3.125 mg tablet 3.25 mg PO BID Rx Instructions: 8am and 4pm Mucinex 1,200 mg Tablet Extended Release 12hr 1,200 mg PO DAILY isosorbide mononitrate 60 mg tablet extended release 24 hr 60 mg PO DAILY Qty: 90 0RF spironolactone 25 mg tablet 12.5 mg PO DAILY Qty: 60 0RF aspirin 81 mg Capsule 81 mg PO DAILY nitroglycerin 0.4 mg Tablet, Sublingual 0.4 mg SUBLINGUAL Q5M PRN (Reason: Angina) Rx Instructions: do not exceed 3 doses per episode cholecalciferol (vitamin D3) 25 mcg (1,000 unit) Capsule 25 mcg PO DAILY Kynmobi 15 mg film 15 mg SUBLINGUAL PRN PRN (Reason: Tremor(S)) Medication counseling provided by Pharmacist: No Follow up/Referrals: Wes Johnson MD [Primary Care Provider] - Discharge Health Status Multidrug resistant organism: No MDRO Diet/Activity/Treatments Diet: Diet as Tolerated Liquid consistency: Normal/Thin Food texture: Regular Activity: As tolerated Oxygen: 1.5 lpm Discharge Data Primary Care Provider: Wes Johnson Quality VTE Deep Vein Thrombosis/Pulmonary Embolism Present on Admission: No MIPS - DC A. The patient was prescribed or already taking an Angiotensin-Converting Enzyme (BRANDON) Inhibitor, or Angiotensin Receptor Wanda (ARB).: Yes B. The patient was prescribed or already taking a beta-wanda. [If Yes to Both A & B, STOP here]: Yes
--- NOTE | 2021-10-13 11:47 | CM.DPC ---
DCP Cont: Confirmed with Bonita at [facility] that they can accept patient today. Time of burr picker confirmed for noon. Dr. Little completed meds, printed them out, as well as DC Summary and he signed. Patient is aware of burr picker time. Updated nurse, Osman, and report given to him. Yue faxed over PASSR, DC Summary, med list. There is a medication that Bonita called back on, that he takes for tremors, amorphine, which they don't provide. Hospitalist can't DC, since it's a home med, and he takes PRN. Bonita is ok with family providing. Left a message for spouse, Toni, regarding discharge time, and if she can provide medication. Updated July that this DC Operating Systems Specialist left her a message. P: Patient is supposed to be discharging to [facility] today with burr picker time at noon. Delmy Amezcua RN/Fabric Separator Operator
== END 2021-10-13 12:07 | DRG 177 ==
LOC: ED 11:02 → AC 12:07
PROVIDERS: Family Medicine; Internal Medicine; Admitting Provider Student in an Organized Health Care Education/Training Program; Emergency Provider Emergency Medicine; PCP Internal Medicine; Referring Provider Emergency Medicine; Visit Provider Student in an Organized Health Care Education/Training Program
DX: U07.1 COVID-19 (principal); J12.82 Pneumonia due to coronavirus disease 2019; I21.4 Non-ST elevation (NSTEMI) myocardial infarction; G93.41 Metabolic encephalopathy; J96.01 Acute respiratory failure with hypoxia; I50.22 Chronic systolic (congestive) heart failure; I25.10 Atherosclerotic heart disease of native coronary artery without angina pectoris; E78.5 Hyperlipidemia, unspecified; I11.0 Hypertensive heart disease with heart failure; G20 Parkinson's disease; E03.9 Hypothyroidism, unspecified; F32.9 Major depressive disorder, single episode, unspecified; Z66 Do not resuscitate; Z51.5 Encounter for palliative care
CPT/HCPCS: 36415; 70450; 71045; 71275; 80048; 80053; 80202; 81001; 82550; 82553; 83605; 83690; 83735; 83880; 84145; 84439; 84443; 84484; 85025; 85379; 85610; 85730; 87040; 87635; 93005; 93010; 93306; 94760; 96365; 96368; 96375; 96376; 97110; 97163; 97164; 97167; 97530; 97535; 99283; 99291; C9803; J0692; J1100; J1644; J1650; J2270; J3475; Q9967